=== PATIENT | female | born 1940 | race Caucasian/White ===

== ENCOUNTER → 2016-06-18 | Outpatient (CLI) | payer MEDICARE, BC ==
[~2016-06-18] MED LIST: /DULO30CA; /FENT50PA; AMBI5TAB; AMIT50TA2; CALC600T10; CALC600T10 PO; CARB10TAXR; CIPR500T89 PO; COLA100C2 PO; CORE12.5 PO; COUM2.5T11 PO; DRIS1CAP PO; FISH1000 PO; FISHCAP; FLAG500T PO; LIPI20TA PO; LISI10TA4 PO; LISI20TA5; LYRI75CA PO; MAG-TAB PO; MAGN250T; MAGN400C PO; METAM; METAMUCIL; METF500T PO; PERC5TAB6 PO; PIOG30TA4 PO; PREG50CA; ROSEHIPS; THERGRAN PO; TOPR100T PO; TYLE325T5 PO; VIT C; VITA50003 PO; ZEST20TA4 PO; ZOLO50TA PO; calcium with D OR; fluticasone spray
[2016-06-18 13:21] LABS: ALBUMIN 3.8 GM/DL (3.2-5.2); ALBUMIN/GLOBULIN RATIO 1.23 (1.00-1.93); ALKALINE PHOSPHATASE 115 U/L (45-117); ALT/SGPT 35 U/L (12-78); ANION GAP 6 MEQ/L (8-16); AST/SGOT 20 U/L (15-37); BILIRUBIN,TOTAL 0.4 MG/DL (0.2-1.0); BLOOD UREA NITROGEN 26 MG/DL (7-18); CALCIUM LEVEL 9.8 MG/DL (8.8-10.2); CARBON DIOXIDE LEVEL 28 MEQ/L (21-32); CHLORIDE LEVEL 106 MEQ/L (98-107); CHOLESTEROL LEVEL 142 MG/DL (<200); CREATININE FOR GFR 0.79 MG/DL (0.55-1.02); GLOMERULAR FILTRATION RATE > 60.0 (>39); GLUCOSE, FASTING 149 MG/DL (83-110); POTASSIUM SERUM 4.7 MEQ/L (3.5-5.1); SODIUM LEVEL 140 MEQ/L (136-145); TOTAL PROTEIN 6.9 GM/DL (6.4-8.2); TRIGLYCERIDES LEVEL 130 MG/DL (<150)
== END ==
LOC: M WUC 10:21
PROVIDERS: ATTEND Internal Medicine
DX: E78.00 Pure hypercholesterolemia, unspecified (principal); I10 Essential (primary) hypertension; E11.9 Type 2 diabetes mellitus without complications

== ENCOUNTER → 2016-09-13 | Outpatient (REF) | payer MEDICARE, BC ==
[2016-09-13 13:37] LABS: BASO % 0.4 % (0.0-1.0); EOS # 0.1 K/mm3 (0.0-0.50); EOS % 1.1 % (0.0-3.0); LARGE UNSTAINED CELL # 0.1 K/mm3 (0.0-0.4); LARGE UNSTAINED CELL % 1.8 % (0.0-4.0); LYMPH # 1.8 K/mm3 (1.5-4.5); LYMPH % 30.7 % (24.0-44.0); MEAN CORPUSCULAR HEMOGLOBIN 30.8 pg (27.0-33.0); MEAN CORPUSCULAR HGB CONC 31.6 g/dl (32.0-36.5); MEAN CORPUSCULAR VOLUME 97.5 fl (80.0-96.0); MONO # 0.3 K/mm3 (0.0-0.8); MONO % 5.7 % (0.0-5.0); NEUTROPHILS # 3.5 K/mm3 (1.8-7.7); NEUTROPHILS % 60.3 % (36.0-66.0); PLATELET COUNT, AUTOMATED 136 k/mm3 (150-450); RED CELL DISTRIBUTION WIDTH 13.5 % (11.5-14.5); WHITE BLOOD COUNT 5.8 K/mm3 (4.0-10.0)
[2016-09-13 14:36] LABS: ERYTHROCYTE SEDIMENTATION RATE 14 mm/hr (0-30)
== END ==
LOC: M LABDRAW1 11:19
PROVIDERS: ATTEND Orthopaedic Surgery
DX: Z47.1 Aftercare following joint replacement surgery (principal)

== ENCOUNTER → 2016-09-24 | Outpatient (CLI) | payer MEDICARE, BC ==
--- NOTE | 2016-09-24 13:52 | REP ---
Three-phase bone scan of the knees: History: Aftercare following joint replacement surgery. Possible infection. No comparison radiographs. Technique: 21.8 mCi technetium 99m MDP is injected and standard three-phase imaging was acquired. Findings: Anterior and posterior flow images are normal. Blood pool images demonstrate photopenia related to the prosthetic components in the right knee replacement. There is some evidence of venous varicosities particularly in the left knee level medially. Delayed scan images demonstrate expected bone prosthetic interface uptake associated with each of the three components of the right knee arthroplasty. No focal area of increased uptake to suggest infection. Impression: Expected bone prosthetic component interface uptake about the right knee arthroplasty. No scintigraphic evidence to suggest infection. Signed by Cricket Mosquera MD 09/24/2016 02:34 P
== END ==
LOC: M RAD 09:58
PROVIDERS: ATTEND Orthopaedic Surgery
DX: Z47.1 Aftercare following joint replacement surgery (principal); Z96.651 Presence of right artificial knee joint
CPT/HCPCS: 78315; A9503

== ENCOUNTER → 2016-10-05 | Outpatient (CLI) | payer MEDICARE, BC ==
--- NOTE | 2016-10-05 16:01 | REP ---
MRI LUMBAR SPINE WITHOUT CONTRAST: HISTORY: Back pain. Decreased signal intensity on T2-weighted images is present in the L2-3 through L5-S1 intervertebral discs. The L3-4 through L5-S1 intervertebral discs are decreased in height. These findings are consistent with disc degeneration. There is no disc bulge or herniation at the L1-2 level. The L1 nerves exit the neural foramina without compression. A diffuse disc bulge is present at the L2-3 level. There is hypertrophy of the ligamenta flava and posterior articulating facets. These findings produce minimal central canal stenosis. The L2 nerves exit the neural foramina without compression. A diffuse disc bulge is present at the L3-4 level. There is hypertrophy of the ligamenta flava and posterior articulating facets. These findings produce minimal central canal stenosis. The L3 nerves exit the neural foramina without compression. A diffuse disc bulge is present at the L4-5 level. There is hypertrophy of the ligamenta flava and posterior articulating facets. These findings produce minimal central canal stenosis. The L4 nerves exit the neural foramina without compression. A diffuse disc bulge is present at the L5-S1 level. This abuts the thecal sac and S1 nerves as they exit the thecal sac. There is hypertrophy of the posterior articulating facets. The L5 nerves exit the neural foramina without compression. The conus medullaris is normal in appearance terminating at the level of the L1-2 intervertebral disc. Normal signal intensity is present in the lumbar vertebral bodies. IMPRESSION: 1. Minimal central canal stenosis at the L2-3 through L4-5 levels secondary to disc bulge, ligamentous and facet hypertrophy. 2. Diffuse disc bulge at the L5-S1 level. This abuts the thecal sac and S1 nerves as they exit the thecal sac. Signed by Tony Cabrera MD 10/05/2016 04:04 P
== END ==
LOC: M PLARAD 14:13
PROVIDERS: ATTEND Orthopaedic Surgery
DX: M54.5 Low back pain (principal)

== ENCOUNTER → 2016-11-12 | Outpatient (REF) | payer MEDICARE, BC ==
[~2016-11-12] MED LIST changes: -COUM2.5T11 PO; +COUM2.5T17 PO; +DULO1CAP3 PO; +GABA-279 PO; -METF500T PO; +METF500T13 PO; +PERC5TAB12 PO; -PERC5TAB6 PO; +SPIR25TA2 PO; +VITA10002 PO; +VITA1CAP40 PO; +VITA200015 PO; +VITA250L PO; -VITA50003 PO
[2016-11-12 20:14] LABS: BASO % 0.3 % (0.0-1.0); EOS % 0.9 % (0.0-3.0); LARGE UNSTAINED CELL # 0.1 K/mm3 (0.0-0.4); LARGE UNSTAINED CELL % 1.4 % (0.0-4.0); LYMPH # 1.8 K/mm3 (1.5-4.5); LYMPH % 30.9 % (24.0-44.0); MEAN CORPUSCULAR HEMOGLOBIN 31.6 pg (27.0-33.0); MEAN CORPUSCULAR HGB CONC 33.3 g/dl (32.0-36.5); MEAN CORPUSCULAR VOLUME 94.8 fl (80.0-96.0); MONO # 0.3 K/mm3 (0.0-0.8); NEUTROPHILS # 3.4 K/mm3 (1.8-7.7); NEUTROPHILS % 61.5 % (36.0-66.0); PLATELET COUNT, AUTOMATED 144 k/mm3 (150-450); RED CELL DISTRIBUTION WIDTH 13.1 % (11.5-14.5); WHITE BLOOD COUNT 5.6 K/mm3 (4.0-10.0)
[2016-11-12 20:26] LABS: ALBUMIN 4.2 GM/DL (3.2-5.2); ALBUMIN/GLOBULIN RATIO 1.45 (1.00-1.93); ALKALINE PHOSPHATASE 107 U/L (45-117); ALT/SGPT 30 U/L (12-78); ANION GAP 6 MEQ/L (8-16); AST/SGOT 17 U/L (15-37); BILIRUBIN,TOTAL 0.4 MG/DL (0.2-1.0); BLOOD UREA NITROGEN 26 MG/DL (7-18); CARBON DIOXIDE LEVEL 28 MEQ/L (21-32); CHLORIDE LEVEL 102 MEQ/L (98-107); CREATININE FOR GFR 0.83 MG/DL (0.55-1.02); GLOMERULAR FILTRATION RATE > 60.0 (>39); GLUCOSE, FASTING 111 MG/DL (83-110); MAGNESIUM LEVEL 2.3 MG/DL (1.8-2.4); POTASSIUM SERUM 4.3 MEQ/L (3.5-5.1); SODIUM LEVEL 136 MEQ/L (136-145); TOTAL PROTEIN 7.1 GM/DL (6.4-8.2); URIC ACID 4.8 MG/DL (2.6-6.0)
[2016-11-12 21:23] LABS: ERYTHROCYTE SEDIMENTATION RATE 12 mm/hr (0-30)
[2016-11-15 00:06] LABS: Lyme Disease IgG/IgM Antibodie <0.91 ISR (0.00-0.90); Lyme Disease IgM Ab Quantitati <0.80 index (0.00-0.79)
== END ==
LOC: M LABDRAW1 13:52
PROVIDERS: ATTEND Internal Medicine Rheumatology
DX: Z51.81 Encounter for therapeutic drug level monitoring (principal); Z79.899 Other long term (current) drug therapy; M35.9 Systemic involvement of connective tissue, unspecified; R25.2 Cramp and spasm; E55.9 Vitamin D deficiency, unspecified

== ENCOUNTER → 2016-12-04 | Outpatient (REF) | payer MEDICARE, BC ==
[2016-12-04 16:04] LABS: BASO % 0.3 % (0.0-1.0); BLOOD UREA NITROGEN 27 MG/DL (7-18); CREATININE FOR GFR 0.84 MG/DL (0.55-1.02); EOS # 0.1 K/mm3 (0.0-0.50); GLOMERULAR FILTRATION RATE > 60.0 (>39); LARGE UNSTAINED CELL # 0.1 K/mm3 (0.0-0.4); LARGE UNSTAINED CELL % 1.1 % (0.0-4.0); LYMPH # 2.1 K/mm3 (1.5-4.5); MEAN CORPUSCULAR HEMOGLOBIN 31.5 pg (27.0-33.0); MEAN CORPUSCULAR HGB CONC 32.9 g/dl (32.0-36.5); MEAN CORPUSCULAR VOLUME 95.9 fl (80.0-96.0); MONO # 0.3 K/mm3 (0.0-0.8); MONO % 4.9 % (0.0-5.0); NEUTROPHILS # 3.9 K/mm3 (1.8-7.7); NEUTROPHILS % 60.6 % (36.0-66.0); PLATELET COUNT, AUTOMATED 147 k/mm3 (150-450); RED CELL DISTRIBUTION WIDTH 13.1 % (11.5-14.5); WHITE BLOOD COUNT 6.4 K/mm3 (4.0-10.0)
== END ==
LOC: M LABDRAW1 15:42
PROVIDERS: ATTEND Internal Medicine Rheumatology
DX: D47.2 Monoclonal gammopathy (principal); D63.1 Anemia in chronic kidney disease; D69.6 Thrombocytopenia, unspecified; N18.3 Chronic kidney disease, stage 3 (moderate)

== ENCOUNTER → 2016-12-07 | Outpatient (REF) | payer MEDICARE, BC ==
[2016-12-07 14:39] LABS: FOLATE > 24.0 NG/ML; VITAMIN B12 LEVEL 448 PG/ML
[2016-12-07 14:51] LABS: TOTAL PROTEIN 7.2 GM/DL (6.4-8.2)
[2016-12-10 11:55] LABS: ALBUMIN 4.24 GM/DL (3.29-5.55); ALBUMIN % 58.9 % (55.8-66.1); GAMMA GLOBULIN % 14.1 % (11.1-18.8)
[2016-12-13 00:07] LABS: SJOGREN'S ANTI SS-A <0.2 AI (0.0-0.9); SJOGREN'S ANTI SS-B <0.2 AI (0.0-0.9)
== END ==
LOC: M LABDRAW1 13:41
PROVIDERS: ATTEND Psychiatry & Neurology Neurology
DX: R20.8 Other disturbances of skin sensation (principal); Z13.1 Encounter for screening for diabetes mellitus; Z13.29 Encounter for screening for other suspected endocrine disorder

== ENCOUNTER → 2016-12-17 | Outpatient (CLI) | payer MEDICARE, BC ==
[2016-12-17 13:43] LABS: MEAN CORPUSCULAR HEMOGLOBIN 31.5 pg (27.0-33.0); MEAN CORPUSCULAR HGB CONC 33.1 g/dl (32.0-36.5); MEAN CORPUSCULAR VOLUME 95.1 fl (80.0-96.0); WHITE BLOOD COUNT 5.8 K/mm3 (4.0-10.0)
[2016-12-17 13:59] LABS: ALBUMIN 3.8 GM/DL (3.2-5.2); ALBUMIN/GLOBULIN RATIO 1.27 (1.00-1.93); ALKALINE PHOSPHATASE 97 U/L (45-117); ALT/SGPT 28 U/L (12-78); ANION GAP 5 MEQ/L (8-16); AST/SGOT 18 U/L (15-37); BILIRUBIN,TOTAL 0.4 MG/DL (0.2-1.0); BLOOD UREA NITROGEN 27 MG/DL (7-18); CALCIUM LEVEL 9.9 MG/DL (8.8-10.2); CARBON DIOXIDE LEVEL 28 MEQ/L (21-32); CHLORIDE LEVEL 107 MEQ/L (98-107); GLOMERULAR FILTRATION RATE > 60.0 (>39); GLUCOSE, FASTING 138 MG/DL (83-110); SODIUM LEVEL 140 MEQ/L (136-145); TOTAL PROTEIN 6.8 GM/DL (6.4-8.2)
[2016-12-17 14:06] LABS: POTASSIUM SERUM 5.2 MEQ/L (3.5-5.1)
== END ==
LOC: M WUC 09:11
PROVIDERS: ATTEND Internal Medicine
DX: Z86.010 Personal history of colon polyps (principal); I10 Essential (primary) hypertension; E11.9 Type 2 diabetes mellitus without complications; E55.9 Vitamin D deficiency, unspecified

== ENCOUNTER → 2016-12-21 | Outpatient (CLI) | payer MEDICARE, BC ==
[2016-12-21 17:06] LABS: ANION GAP 7 MEQ/L (8-16); BLOOD UREA NITROGEN 33 MG/DL (7-18); CALCIUM LEVEL 10.6 MG/DL (8.8-10.2); CARBON DIOXIDE LEVEL 29 MEQ/L (21-32); CHLORIDE LEVEL 104 MEQ/L (98-107); CREATININE FOR GFR 0.94 MG/DL (0.55-1.02); GLOMERULAR FILTRATION RATE > 60.0 (>39); GLUCOSE, FASTING 153 MG/DL (83-110); POTASSIUM SERUM 4.8 MEQ/L (3.5-5.1); SODIUM LEVEL 140 MEQ/L (136-145)
== END ==
LOC: M WUC 14:10
PROVIDERS: ATTEND Nurse Practitioner Family
DX: I11.9 Hypertensive heart disease without heart failure (principal)

== ENCOUNTER → 2017-01-03 | Outpatient (CLI) | payer MEDICARE, BC ==
[2017-01-03 12:58] LABS: MEAN CORPUSCULAR HEMOGLOBIN 31.8 pg (27.0-33.0); MEAN CORPUSCULAR HGB CONC 34.2 g/dl (32.0-36.5); MEAN CORPUSCULAR VOLUME 92.8 fl (80.0-96.0); RED CELL DISTRIBUTION WIDTH 13.3 % (11.5-14.5); WHITE BLOOD COUNT 6.6 K/mm3 (4.0-10.0)
== END ==
LOC: M WUC 11:51
PROVIDERS: ATTEND Nurse Practitioner Family
DX: I11.9 Hypertensive heart disease without heart failure (principal)

== ENCOUNTER 2017-03-14 06:57 | Day surgery (SDC) | payer MEDICARE, BC ==
[~2017-03-14] VITALS: Ht 162.6 cm; Wt 73.9 kg
[2017-03-14] MEDS ORDERED: PROPARACAINE 0.5% OPHTH SOL 15ML OS ONE (07:00)
[2017-03-14] MEDS ORDERED: TROPICAMIDE 1% OPHTH SOLN 2ML XX ONE (07:00)
[2017-03-14] MEDS ORDERED: OFLOXACIN 0.3 % (OCUFLOX) OPTH SOL 5ML OS ONE (07:00)
[2017-03-14] MEDS ORDERED: PHENYLEPHRINE 2.5% OPHTH SOL 2ML OS ONE (07:00)
[2017-03-14] MEDS ORDERED: LR 1,000 ML IV ONE (07:15)
[2017-03-14] MEDS ORDERED: ACETYLCHOLINE OPHTH SOLN 1% 2ML (MIOCHOL-E) As Ordered ONE (08:12)
[2017-03-14] MEDS ORDERED: POVIDONE-IODINE 5% OPHTH PREP SOL 30ML As Ordered ONE (08:12)
[2017-03-14] MEDS ORDERED: DUOVISC (0.50ML VISCOAT/0.55ML PROVISC) OPHTH KIT As Ordered ONE (08:13)
[2017-03-14] MEDS ORDERED: CEFUROXIME 1MG/0.1ML INTRACAMERAL INJ As Ordered ONE (08:13)
[2017-03-14] MEDS ORDERED: BALANCED SALT IRRIGATION SOLUTION 500ML BAG (FOR OR EYE MACHINE) As Ordered ONE (08:13)
[2017-03-14] MEDS ORDERED: LIDOCAINE 0.75%/EPINEPHRINE 0.025% IN BSS 1ML SYR INTRACAMERAL (OR ONLY) As Ordered ONE (08:13)
[2017-03-14] MEDS ORDERED: MIDAZOLAM INJ 2 MG/2 ML VIAL (J2250) As Ordered ONE (08:20)
[2017-03-14] MEDS ORDERED: fentaNYL 100 MCG/2 ML INJECTION (J3010) As Ordered ONE (08:20)
[2017-03-14] MEDS ORDERED: LIDOCAINE 2% INJ 100 MG/5 ML SDV (FOR ANES.) As Ordered ONE (08:38)
[2017-03-14 09:40] VITALS: BP 142/65
--- NOTE | 2017-03-16 10:52 | RO ---
DATE OF PROCEDURE: 03/14/2017 PREOPERATIVE DIAGNOSIS: Visually significant nuclear sclerotic cataract left eye. POSTOPERATIVE DIAGNOSIS: Visually significant nuclear sclerotic cataract left eye. PROCEDURE: Cataract extraction with use of phacoemulsification and placement of intraocular lens, AU00T0, 21.5, left eye. SURGEON: Vance Mccartney DO [employer] ACCOUNT EXECUTIVE: ANESTHESIA: Local with monitored anesthesia care (MAC). COMPLICATIONS: None. POSTOPERATIVE CONDITION: Stable. INDICATION FOR SURGERY: Blurred vision left eye affecting patient's activities of daily living. DESCRIPTION OF PROCEDURE: The patient was seen in the preoperative area and properly identified. The correct operative eye was identified and marked. Attention was turned to that eye. The patient received topical antibiotics in the preoperative area. The patient then received topical dilating drops consisting of tropicamide and phenylephrine. The patient was then transferred to the operating room. The correct side was re-identified. The patient received topical anesthetics and antibiotics on the surface of the eye. The eye was prepped and draped in a sterile fashion. The upper and lower eyelids were isolated with Tegaderm tape, and the lids were held open with an adjustable speculum. Using a sideport blade, a paracentesis incision was made. Intraocular preservative-free lidocaine was then injected into the anterior chamber. Viscoelastic was then injected into the anterior chamber through the paracentesis. Using a 2.4 mm sharp-tipped keratome, the anterior chamber was entered via a temporal clear corneal incision. A continuous curvilinear capsulorrhexis was created with the aid of a 26-gauge cystotome and Utrata forceps. Hydrodissection was performed with balanced salt solution (BSS) on a blunt cannula until the nucleus was freely mobile. The crystalline lens was phacoemulsified and aspirated. Additional cohesive viscoelastic was placed into the capsular bag to deepen it. A AU00T0, 21.5 lens was placed into the capsular bag and confirmed by visualizing the continuous curvilinear capsulorrhexis. Additional irrigation and aspiration was used to remove cortical material and remaining viscoelastic. The clear corneal incision was hydrated with BSS on a blunt cannula. The lens was well positioned. The incisions were then tested for leaks and found to be negative. The eye was then palpated for appropriate pressure and adjusted accordingly with BSS. The eyelid speculum was carefully removed. A shield was placed. The patient tolerated the procedure well and was discharged to the recovery unit in a stable condition. MTDD
== END 2017-03-14 09:57 | disposition home or self-care (01) ==
LOC: M SDC 06:57
PROVIDERS: ATTEND Ophthalmology
DX: H25.12 Age-related nuclear cataract, left eye (principal); I10 Essential (primary) hypertension; I34.8 Other nonrheumatic mitral valve disorders; K57.32 Diverticulitis of large intestine without perforation or abscess without bleeding; F41.9 Anxiety disorder, unspecified; F32.9 Major depressive disorder, single episode, unspecified; Z91.040 Latex allergy status; Z88.8 Allergy status to other drugs, medicaments and biological substances; Z79.02 Long term (current) use of antithrombotics/antiplatelets; Z79.899 Other long term (current) drug therapy
CPT/HCPCS: 66984; J2250; J3010; V2632

== ENCOUNTER 2017-04-04 07:16 | Day surgery (SDC) | payer MEDICARE, BC ==
[~2017-04-04] VITALS: Ht 152.4 cm; Wt 55.8 kg
[~2017-04-04 07:16] MED LIST changes: +OFLOXACIN 0.3 % (OCUFLOX) OPTH SOL 5ML OD ONE; +PHENYLEPHRINE 2.5% OPHTH SOL 2ML OD ONE; +PROPARACAINE 0.5% OPHTH SOL 15ML OD ONE; +TROPICAMIDE 1% OPHTH SOLN 2ML XX ONE
[2017-04-04] MEDS ORDERED: ACETYLCHOLINE OPHTH SOLN 1% 2ML (MIOCHOL-E) As Ordered ONE (08:24)
[2017-04-04] MEDS ORDERED: POVIDONE-IODINE 5% OPHTH PREP SOL 30ML As Ordered ONE (08:24)
[2017-04-04] MEDS ORDERED: LIDOCAINE 0.75%/EPINEPHRINE 0.025% IN BSS 1ML SYR INTRACAMERAL (OR ONLY) As Ordered ONE (08:24)
[2017-04-04] MEDS ORDERED: DUOVISC (0.50ML VISCOAT/0.55ML PROVISC) OPHTH KIT As Ordered ONE (08:24)
[2017-04-04] MEDS ORDERED: BALANCED SALT IRRIGATION SOLUTION 500ML BAG (FOR OR EYE MACHINE) As Ordered ONE (08:24)
[2017-04-04] MEDS ORDERED: CEFUROXIME 1MG/0.1ML INTRACAMERAL INJ As Ordered ONE (08:24)
[2017-04-04] MEDS ORDERED: fentaNYL 100 MCG/2 ML INJECTION (J3010) As Ordered ONE (08:48)
[2017-04-04] MEDS ORDERED: MIDAZOLAM INJ 2 MG/2 ML VIAL (J2250) As Ordered ONE (08:48)
[2017-04-04 10:05] VITALS: BP 144/65
--- NOTE | 2017-04-05 13:12 | RO ---
DATE OF PROCEDURE: 04/04/2017 PREOPERATIVE DIAGNOSIS: Visually significant nuclear sclerotic cataract right eye. POSTOPERATIVE DIAGNOSIS: Visually significant nuclear sclerotic cataract right eye. PROCEDURE: Cataract extraction with use of phacoemulsification and placement of intraocular lens, AU00T0, 21.5, right eye. SURGEON: Vance Mccartney DO TOOTH INSPECTOR: ANESTHESIA: Local with monitored anesthesia care (MAC). COMPLICATIONS: None. POSTOPERATIVE CONDITION: Stable. INDICATION FOR SURGERY: Blurred vision right eye affecting patient's activities of daily living. DESCRIPTION OF PROCEDURE: The patient was seen in the preoperative area and properly identified. The correct operative eye was identified and marked. Attention was turned to that eye. The patient received topical antibiotics in the preoperative area. The patient then received topical dilating drops consisting of tropicamide and phenylephrine. The patient was then transferred to the operating room. The correct side was re-identified. The patient received topical anesthetics and antibiotics on the surface of the eye. The eye was prepped and draped in a sterile fashion. The upper and lower eyelids were isolated with Tegaderm tape, and the lids were held open with an adjustable speculum. Using a sideport blade, a paracentesis incision was made. Intraocular preservative-free lidocaine was then injected into the anterior chamber. Viscoelastic was then injected into the anterior chamber through the paracentesis. Using a 2.65 mm sharp-tipped keratome, the anterior chamber was entered via a temporal clear corneal incision. A continuous curvilinear capsulorrhexis was created with the aid of a 26-gauge cystotome and Utrata forceps. Hydrodissection was performed with balanced salt solution (BSS) on a blunt cannula until the nucleus was freely mobile. The crystalline lens was phacoemulsified and aspirated. Additional cohesive viscoelastic was placed into the capsular bag to deepen it. An AU00T0 lens was placed into the capsular bag and confirmed by visualizing the continuous curvilinear capsulorrhexis. Additional irrigation and aspiration was used to remove cortical material and remaining viscoelastic. The clear corneal incision was hydrated with BSS on a blunt cannula. The lens was well positioned. The incisions were then tested for leaks and found to be negative. The eye was then palpated for appropriate pressure and adjusted accordingly with BSS. The eyelid speculum was carefully removed. TobraDex ointment was placed in the eye. An eye patch and shield were then secured over the eye. The patient tolerated the procedure well and was discharged to the recovery unit in a stable condition.
== END 2017-04-04 10:19 | disposition home or self-care (01) ==
LOC: M SDC 07:16
PROVIDERS: ATTEND Ophthalmology
DX: H25.11 Age-related nuclear cataract, right eye (principal); I11.9 Hypertensive heart disease without heart failure; I34.9 Nonrheumatic mitral valve disorder, unspecified; F41.9 Anxiety disorder, unspecified; F32.9 Major depressive disorder, single episode, unspecified; M19.90 Unspecified osteoarthritis, unspecified site; K57.92 Diverticulitis of intestine, part unspecified, without perforation or abscess without bleeding; Z88.5 Allergy status to narcotic agent; Z88.8 Allergy status to other drugs, medicaments and biological substances; Z91.040 Latex allergy status; Z88.1 Allergy status to other antibiotic agents; Z91.048 Other nonmedicinal substance allergy status; Z79.899 Other long term (current) drug therapy; Z79.84 Long term (current) use of oral hypoglycemic drugs
CPT/HCPCS: 66984; J2250; J3010; V2632

== ENCOUNTER → 2017-06-04 | Outpatient (REF) | payer MEDICARE, BC ==
[2017-06-04 18:17] LABS: ALBUMIN 4.6 GM/DL (3.2-5.2); ALBUMIN/GLOBULIN RATIO 1.39 (1.00-1.93); ALKALINE PHOSPHATASE 111 U/L (45-117); ALT/SGPT 21 U/L (12-78); ANION GAP 7 MEQ/L (8-16); AST/SGOT 17 U/L (7-37); BILIRUBIN,TOTAL 0.4 MG/DL (0.2-1.0); BLOOD UREA NITROGEN 30 MG/DL (7-18); CALCIUM LEVEL 10.5 MG/DL (8.8-10.2); CARBON DIOXIDE LEVEL 30 MEQ/L (21-32); CHLORIDE LEVEL 102 MEQ/L (98-107); CHOLESTEROL LEVEL 134 MG/DL (<200); CREATININE FOR GFR 0.89 MG/DL (0.55-1.30); GLOMERULAR FILTRATION RATE > 60.0 (>39); GLUCOSE, FASTING 136 MG/DL (70-100); HDL CHOLESTEROL 57 MG/DL (>40); LDL CHOLESTEROL 57.8 MG/DL (<100); NON-HDL-C 77 MG/DL; POTASSIUM SERUM 4.4 MEQ/L (3.5-5.1); SODIUM LEVEL 139 MEQ/L (136-145); TOTAL PROTEIN 7.9 GM/DL (6.4-8.2); TRIGLYCERIDES LEVEL 96 MG/DL (<150)
[2017-06-04 19:47] LABS: CREATININE, URINE 51.5 MG/DL; MALB URINE SIEMENS 15.6 MG/L; MAU/CREAT RATIO 30.2 MCG/MG (0.0-30.0)
[2017-06-04 20:14] LABS: ESTIMATED AVERAGE GLUCOSE 143 MG/DL (60-110); HEMOGLOBIN A1c 6.6 %
== END ==
LOC: M SFHCPLAZ 15:30
DX: E11.9 Type 2 diabetes mellitus without complications (principal); E78.00 Pure hypercholesterolemia, unspecified
CPT/HCPCS: 80053

== ENCOUNTER → 2017-07-25 | Outpatient (CLI) | payer BC | LOC: M RAD 13:34 | DX: I73.9 Peripheral vascular disease, unspecified (principal); G93.9 Disorder of brain, unspecified ==

== ENCOUNTER → 2017-11-04 | Outpatient (CLI) | payer BC, MEDICARE ==
[2017-11-04 12:10] LABS: HEMATOCRIT 36.7 % (36.0-47.0); HEMOGLOBIN 11.9 g/dl (12.0-15.5); MEAN CORPUSCULAR HEMOGLOBIN 30.7 pg (27.0-33.0); MEAN CORPUSCULAR HGB CONC 32.4 g/dl (32.0-36.5); MEAN CORPUSCULAR VOLUME 94.6 fl (80.0-96.0); PLATELET COUNT, AUTOMATED 172 10^3/uL (150-450); RED BLOOD COUNT 3.88 10^6/uL (4.00-5.40); RED CELL DISTRIBUTION WIDTH 13.1 % (11.5-14.5); WHITE BLOOD COUNT 6.5 10^3/uL (4.0-10.0)
[2017-11-04 12:28] LABS: TOTAL 25(OH) VITAMIN D 34.8 NG/ML (30.0-100.0)
[2017-11-04 12:31] LABS: ALBUMIN 3.9 GM/DL (3.2-5.2); ALBUMIN/GLOBULIN RATIO 1.18 (1.00-1.93); ALKALINE PHOSPHATASE 97 U/L (45-117); ALT/SGPT 23 U/L (12-78); ANION GAP 7 MEQ/L (8-16); AST/SGOT 18 U/L (7-37); BILIRUBIN,TOTAL 0.4 MG/DL (0.2-1.0); BLOOD UREA NITROGEN 25 MG/DL (7-18); CALCIUM LEVEL 10.2 MG/DL (8.8-10.2); CARBON DIOXIDE LEVEL 27 MEQ/L (21-32); CHLORIDE LEVEL 107 MEQ/L (98-107); CREATININE FOR GFR 0.94 MG/DL (0.55-1.30); GLOMERULAR FILTRATION RATE > 60.0 (>39); GLUCOSE, FASTING 154 MG/DL (70-100); POTASSIUM SERUM 5.1 MEQ/L (3.5-5.1); SODIUM LEVEL 141 MEQ/L (136-145); TOTAL PROTEIN 7.2 GM/DL (6.4-8.2)
[2017-11-04 12:36] LABS: ESTIMATED AVERAGE GLUCOSE 157 MG/DL (60-110); HEMOGLOBIN A1c 7.1 %
[2017-11-04 13:07] LABS: MAU/CREAT RATIO 96.8 MCG/MG (0.0-30.0)
== END ==
LOC: M WUC 09:07
DX: G62.9 Polyneuropathy, unspecified (principal); I10 Essential (primary) hypertension; E11.9 Type 2 diabetes mellitus without complications; Z86.010 Personal history of colon polyps; E55.9 Vitamin D deficiency, unspecified
CPT/HCPCS: 83735

== ENCOUNTER → 2017-11-19 | Outpatient (CLI) | payer MEDICARE, BC | LOC: M WHC 11:37 | DX: Z12.31 Encounter for screening mammogram for malignant neoplasm of breast (principal) | CPT/HCPCS: 77067 ==

== ENCOUNTER → 2018-05-14 | Outpatient (CLI) | payer MEDICARE, BC ==
[~2018-05-14] MED LIST changes: +GABA-1171 PO; -GABA-279 PO; -OFLOXACIN 0.3 % (OCUFLOX) OPTH SOL 5ML OD ONE; -PHENYLEPHRINE 2.5% OPHTH SOL 2ML OD ONE; +PIOG1TAB37 PO; -PIOG30TA4 PO; -PROPARACAINE 0.5% OPHTH SOL 15ML OD ONE; +SPIR-10 PO; -SPIR25TA2 PO; -TROPICAMIDE 1% OPHTH SOLN 2ML XX ONE; -VITA1CAP40 PO; +VITA50005 PO
[2018-05-14 12:47] LABS: APPEARANCE, URINE HAZY (CLEAR); BACTERIA, URINE AUTO 3+ (NEGATIVE); BILIRUBIN, URINE AUTO NEGATIVE (NEGATIVE); BLOOD, URINE BLOOD NEGATIVE (NEGATIVE); COLOR, URINE YELLOW (YELLOW); GLUCOSE, URINE (UA) AUTO NEGATIVE (NEGATIVE); KETONE, URINE AUTO NEGATIVE (NEGATIVE); LEUKOCYTE ESTERASE, URINE AUTO 3+ (NEGATIVE); MUCUS, URINE SMALL (NEGATIVE); NITRITE, URINE AUTO NEGATIVE (NEGATIVE); PROTEIN, URINE AUTO NEGATIVE (NEGATIVE); RBC, URINE AUTO 5 /HPF (0-3); SPECIFIC GRAVITY URINE AUTO 1.019 (1.002-1.035); SQUAMOUS EPITHELIAL CELL UR AU 1 /HPF (0-6); UROBILINOGEN, URINE AUTO 0.2 mg/dL (0.0-2.0); WBC, URINE AUTO 73 /HPF (0-3)
[2018-05-14 13:03] LABS: ALBUMIN 3.6 GM/DL (3.2-5.2); ALT/SGPT 22 U/L (12-78); BILIRUBIN,TOTAL 0.3 MG/DL (0.2-1.0); BLOOD UREA NITROGEN 24 MG/DL (7-18); CALCIUM LEVEL 9.9 MG/DL (8.8-10.2); CARBON DIOXIDE LEVEL 26 MEQ/L (21-32); CHLORIDE LEVEL 106 MEQ/L (98-107); CREATININE FOR GFR 0.78 MG/DL (0.55-1.30); GLOMERULAR FILTRATION RATE > 60.0 (>39); GLUCOSE, FASTING 131 MG/DL (70-100); POTASSIUM SERUM 4.9 MEQ/L (3.5-5.1); SODIUM LEVEL 138 MEQ/L (136-145); TOTAL PROTEIN 6.8 GM/DL (6.4-8.2)
[2018-05-14 13:22] LABS: MAU/CREAT RATIO 27.5 MCG/MG (0.0-30.0)
[2018-05-14 14:32] LABS: HEMOGLOBIN A1c 7.5 %
== END ==
LOC: M WUC 10:06
PROVIDERS: ATTEND Internal Medicine
DX: I10 Essential (primary) hypertension (principal); E11.9 Type 2 diabetes mellitus without complications

== ENCOUNTER → 2018-06-18 | Outpatient (REF) | payer MEDICARE, BC ==
[2018-06-18 13:29] LABS: INR 1.06; PROTHROMBIN TIME 13.9 SECONDS (12.1-14.4)
[2018-06-18 13:30] LABS: PARTIAL THROMBOPLASTIN TIME 28.6 SECONDS (25.4-37.6)
== END ==
LOC: M LABDRAW1 11:50
PROVIDERS: ATTEND Physical Medicine & Rehabilitation
DX: Z01.812 Encounter for preprocedural laboratory examination (principal)

== ENCOUNTER → 2018-08-06 | Outpatient (REF) | payer MEDICARE, BC ==
[~2018-08-06] MED LIST changes: -/DULO30CA; -/FENT50PA; -CARB10TAXR; +CYMB1CAP5; +FENT1DIS15; +METO-745 PO; +TEGR100T3; -TOPR100T PO
== END ==
LOC: M SFHCPLAZ 10:22
PROVIDERS: ATTEND Dermatology
DX: C44.529 Squamous cell carcinoma of skin of other part of trunk (principal); C44.612 Basal cell carcinoma of skin of right upper limb, including shoulder; L57.0 Actinic keratosis; D23.39 Other benign neoplasm of skin of other parts of face

== ENCOUNTER → 2018-09-23 | Outpatient (REF) | payer MEDICARE, BC ==
[~2018-09-23] MED LIST changes: +CYAN100049 PO; -DULO1CAP3 PO; +DULO1CAP6 PO; -VITA10002 PO
== END ==
LOC: M SFHCPLAZ 09:58
PROVIDERS: ATTEND Dermatology
DX: L57.0 Actinic keratosis (principal)

== ENCOUNTER → 2018-11-26 | Outpatient (CLI) | payer MEDICARE, BC ==
[2018-11-26 12:33] LABS: HEMATOCRIT 37.4 % (36.0-47.0); HEMOGLOBIN 11.9 g/dl (12.0-15.5); MEAN CORPUSCULAR HEMOGLOBIN 31.3 pg (27.0-33.0); MEAN CORPUSCULAR HGB CONC 31.8 g/dl (32.0-36.5); MEAN CORPUSCULAR VOLUME 98.4 fl (80.0-96.0); PLATELET COUNT, AUTOMATED 160 10^3/uL (150-450); WHITE BLOOD COUNT 6.7 10^3/uL (4.0-10.0)
[2018-11-26 12:38] LABS: APPEARANCE, URINE MANUAL HAZY (CLEAR); BILIRUBIN, URINE MANUAL NEGATIVE (NEGATIVE); BLOOD URINE MANUAL POSITIVE (NEGATIVE); COLOR, URINE MANUAL LT YELLOW (YELLOW); GLUCOSE, URINE (UA) MANUAL NEGATIVE (NEGATIVE); KETONE, URINE MANUAL NEGATIVE (NEGATIVE); LEUKOCYTE ESTERASE, URINE MAN POSITIVE (NEGATIVE); NITRITE, URINE MANUAL NEGATIVE (NEGATIVE); PROTEIN, URINE MANUAL 2+ mg/dL (NEGATIVE); SPECIFIC GRAVITY,URINE MANUAL 1.015 (1.002-1.035); UROBILINOGEN, URINE MANUAL NORMAL (NORMAL)
[2018-11-26 12:47] LABS: WBC, URINE 30-40 /hpf (0-3)
[2018-11-26 12:48] LABS: BACTERIA, URINE MOD AMOUNT; HYALINE CAST, URINE NONE SEEN /lpf (0-1)
[2018-11-26 12:58] LABS: ALBUMIN 3.8 GM/DL (3.2-5.2); ALT/SGPT 23 U/L (12-78); BILIRUBIN,TOTAL 0.3 MG/DL (0.2-1.0); BLOOD UREA NITROGEN 30 MG/DL (7-18); CALCIUM LEVEL 9.8 MG/DL (8.8-10.2); CARBON DIOXIDE LEVEL 29 MEQ/L (21-32); CHLORIDE LEVEL 107 MEQ/L (98-107); CHOLESTEROL LEVEL 125 MG/DL (<200); CHOLESTEROL RISK RATIO 2.551 (<5); CREATININE FOR GFR 0.87 MG/DL (0.55-1.30); GLOMERULAR FILTRATION RATE > 60.0 (>39); GLUCOSE, FASTING 145 MG/DL (70-100); HDL CHOLESTEROL 49 MG/DL (>40); LDL CHOLESTEROL 54 MG/DL (<100); MAGNESIUM LEVEL 2.1 MG/DL (1.8-2.4); NON-HDL-C 76 MG/DL; POTASSIUM SERUM 5.3 MEQ/L (3.5-5.1); SODIUM LEVEL 139 MEQ/L (136-145); TRIGLYCERIDES LEVEL 109 MG/DL (<150)
[2018-11-26 12:59] LABS: HEMOGLOBIN A1c 7.2 %
[2018-11-26 13:05] LABS: MAU/CREAT RATIO 211.3 MCG/MG (0.0-30.0)
== END ==
LOC: M WUC 08:29
PROVIDERS: ATTEND Internal Medicine
DX: G62.9 Polyneuropathy, unspecified (principal); I10 Essential (primary) hypertension; E78.00 Pure hypercholesterolemia, unspecified; E11.9 Type 2 diabetes mellitus without complications

== ENCOUNTER 2019-01-17 01:47 | Emergency (ER) | payer MEDICARE ==
[~2019-01-17] VITALS: Ht 162.6 cm; Wt 70.5 kg
[2019-01-17 02:06] LABS: BASO % 0.5 % (0.0-1.0); EOS # 0.1 10^3/uL (0.0-0.5); EOS % 2.1 % (0.0-3.0); HEMATOCRIT 36.7 % (36.0-47.0); HEMOGLOBIN 11.5 g/dl (12.0-15.5); LYMPH # 2.4 10^3/uL (1.5-5.0); LYMPH % 37.9 % (24.0-44.0); MEAN CORPUSCULAR HEMOGLOBIN 30.3 pg (27.0-33.0); MEAN CORPUSCULAR HGB CONC 31.3 g/dl (32.0-36.5); MEAN CORPUSCULAR VOLUME 96.6 fl (80.0-96.0); MONO # 0.5 10^3/uL (0.0-0.8); MONO % 7.9 % (0.0-5.0); NEUTROPHILS # 3.3 10^3/uL (1.5-8.5); NEUTROPHILS % 51.3 % (36.0-66.0); PLATELET COUNT, AUTOMATED 154 10^3/uL (150-450); WHITE BLOOD COUNT 6.3 10^3/uL (4.0-10.0)
[2019-01-17] MEDS ORDERED: FURO40TA2 PO (02:23)
[2019-01-17] MEDS ORDERED: CEPH500C PO (02:23)
[2019-01-17 02:33] LABS: BLOOD UREA NITROGEN 26 MG/DL (7-18); CALCIUM LEVEL 10.4 MG/DL (8.8-10.2); CARBON DIOXIDE LEVEL 28 MEQ/L (21-32); CHLORIDE LEVEL 102 MEQ/L (98-107); CPK CREATINE PHOSPHOKINASE 175 U/L (26-192); CREATININE FOR GFR 0.97 MG/DL (0.55-1.30); GLOMERULAR FILTRATION RATE 58.8 (>32); GLUCOSE, FASTING 119 MG/DL (70-100); MB/CK RELATIVE INDEX 1.14 (< OR =4); POTASSIUM SERUM 4.3 MEQ/L (3.5-5.1); SODIUM LEVEL 134 MEQ/L (136-145); TROPONIN I < 0.02 NG/ML (< 0.10)
[2019-01-17] MEDS ORDERED: KETOROLAC 30 MG/ML VIAL (J1885) IV ONE (03:00)
[2019-01-17] MEDS ORDERED: METHOCARBAMOL 1,000 MG/10 ML VIAL (J2800) IV ONE (03:00)
--- NOTE | 2019-01-17 04:51 | REPVR ---
EXAM: CT Thoracic Spine Without Contrast EXAM DATE/TIME: 01/17/2019 2:53 AM CLINICAL HISTORY: 79 years old, female; Pain in thoracic spine; Without myelpathy or radiculopathy; Additional info: New onset tl junction pain TECHNIQUE: Imaging protocol: Computed tomography images of the thoracic spine without contrast. Radiation optimization: All CT scans at this facility use at least one of these dose optimization techniques: automated exposure control; mA and/or kV adjustment per patient size (includes targeted exams where dose is matched to clinical indication); or iterative reconstruction. COMPARISON: CT Spine,thoracic w/o contrast 01/17/2019 2:59 AM FINDINGS: Vertebrae: There is a slight leftward convex curvature in the region of the cervical thoracic junction. There are no subluxations. Vertebral body heights are normal. There is no evidence of acute fracture. No suspicious osseous lesions. Anterior endplate spurs are seen at multiple levels, largest from T7-T8 through T9-T10. There is fusion of the bilateral facet joints at T3-T4. There is mild facet joint sclerosis and hypertrophy at multiple levels in the upper thoracic spine, most prominent at T2-T3. Discs/Spinal canal/Neural foramina: There is calcification within the disc and a small posterior disc osteophyte complex at T11-T12, not resulting in significant stenosis of the spinal canal. No significant spinal canal stenosis is seen. Soft tissues: The paraspinous soft tissues appear unremarkable. Vasculature: The visualized aorta is normal in size. Lungs: Patchy ground glass opacity posteriorly in the visualized lungs is nonspecific and may be due to incomplete expansion. IMPRESSION: 1. No fractures identified. 2. Multilevel, relatively mild degenerative endplate changes and a small osteophyte complex at T11-T12. No significant stenosis of the thoracic spinal canal. 3. Mild multilevel facet degenerative changes in the upper thoracic spine. Electronically signed by: Christi Salazar On 01/17/2019 04:51:22 AM
--- NOTE | 2019-01-17 05:01 | REPVR ---
EXAM: CT Lumbar Spine Without Contrast EXAM DATE/TIME: 01/17/2019 3:16 AM CLINICAL HISTORY: 79 years old, female; Low back pain; Additional info: New onset tl junction pain TECHNIQUE: Imaging protocol: Computed tomography images of the lumbar spine without contrast. Radiation optimization: All CT scans at this facility use at least one of these dose optimization techniques: automated exposure control; mA and/or kV adjustment per patient size (includes targeted exams where dose is matched to clinical indication); or iterative reconstruction. COMPARISON: MRI-Spine, L.S. without con 10/05/2016 3:00 PM FINDINGS: Vertebrae: There is normal alignment of the visualized spine. Vertebral body heights are normal. There is no evidence of acute fracture. Discs/Spinal canal/Neural foramina: Ligamentum flavum hypertrophy and mild facet hypertrophy at L3-L4 result in mild central canal stenosis at this level. There is a minimal bulge at L4-5 disc. Ligamentum flavum hypertrophy and facet joint hypertrophy at L4-L5 result in mild central canal stenosis at this level. Disc space narrowing, endplate sclerosis, and small endplate spurs are seen at the L5-S1 level, grossly unchanged from the prior MRI. There is hypertrophy of the bilateral facet joints at L5-S1. There is no significant stenosis of the spinal canal. There is mild left L5-S1 neural foraminal narrowing, unchanged. Vasculature: Atherosclerotic calcifications are present in the visualized abdominal aorta and the iliac arteries. Soft tissues: The paraspinous soft tissues appear unremarkable. IMPRESSION: 1. Normal alignment. No fractures identified. 2. Degenerative disc disease most prominent at L5-S1, without significant change from the prior MRI. Mild stenosis of spinal canal at L3-L4 and L4-L5, mostly related to facet and ligamentum flavum hypertrophy. 3. Facet arthropathy in the lower lumbar spine, most prominent at L5-S1, without significant change. Electronically signed by: Christi Salazar On 01/17/2019 05:01:24 AM
[2019-01-17] MEDS ORDERED: ROBA750T4 PO (06:36)
[2019-01-17] MEDS ORDERED: NAPR-837 PO (06:36)
[2019-01-17 07:00] VITALS: BP 140/81
--- NOTE | 2019-01-17 09:18 | REP ---
TWO-VIEW CHEST: REASON: Chest pain. COMPARISON: No priors. The technique utilized in obtaining the radiograph has magnified the cardiac silhouette and accentuated the interstitial markings. FINDINGS: The superior mediastinal structures are midline. The cardiac silhouette is unremarkable in size, shape, and position. The diaphragmatic surfaces of the lungs are regular, and the costophrenic angles are clear. The pulmonary barone are clear. The imaged osseous structures are intact. IMPRESSION: There is no acute cardiopulmonary disease. Electronically Signed by Bg Green DO 01/17/2019 09:47 A
--- NOTE | 2019-01-18 05:39 | ECGEPIP ---
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
== END 2019-01-17 07:14 | disposition home or self-care (01) ==
LOC: M ED 01:47
DX: M54.9 Dorsalgia, unspecified (principal); M51.37 Other intervertebral disc degeneration, lumbosacral region; M51.34 Other intervertebral disc degeneration, thoracic region; Z88.5 Allergy status to narcotic agent; Z88.8 Allergy status to other drugs, medicaments and biological substances; Z88.1 Allergy status to other antibiotic agents; Z91.040 Latex allergy status; Z91.048 Other nonmedicinal substance allergy status; Z79.899 Other long term (current) drug therapy; Z79.84 Long term (current) use of oral hypoglycemic drugs
CPT/HCPCS: 71045; 72128; 72131; 80048; 82550; 82553; 84484; 85025; 93005; 93041; 94760; 96374; 96375; 99285; J1885; J2800

== ENCOUNTER → 2019-01-29 | Outpatient (REF) | payer MEDICARE ==
[~2019-01-29] MED LIST changes: +CEPH500C PO; +FURO40TA2 PO; +NAPR-837 PO; +ROBA750T4 PO
== END ==
LOC: M SFHCPLAZ 18:36
PROVIDERS: ATTEND Dermatology
DX: D17.21 Benign lipomatous neoplasm of skin and subcutaneous tissue of right arm (principal); D17.22 Benign lipomatous neoplasm of skin and subcutaneous tissue of left arm

== ENCOUNTER 2019-03-09 19:04 | Inpatient (IN) | payer MEDICARE ==
[~2019-03-09] VITALS: Ht 162.6 cm; Wt 77.3 kg
[2019-03-09] MEDS ORDERED: ONDANSETRON 4MG/2ML VIAL (J2405) IV ONE (19:45)
[2019-03-09] MEDS ORDERED: fentaNYL 100 MCG/2 ML INJECTION (J3010) IV ONE (19:45)
[2019-03-09] MEDS ORDERED: NS 1,000 ML IV ONE (19:45)
[2019-03-09 20:26] LABS: BASO % 0.1 % (0.0-1.0); HEMATOCRIT 36.6 % (36.0-47.0); HEMOGLOBIN 11.6 g/dl (12.0-15.5); LYMPH # 0.6 10^3/uL (1.5-5.0); LYMPH % 4.9 % (24.0-44.0); MEAN CORPUSCULAR HGB CONC 31.7 g/dl (32.0-36.5); MEAN CORPUSCULAR VOLUME 97.9 fl (80.0-96.0); MONO # 0.8 10^3/uL (0.0-0.8); NEUTROPHILS # 10.1 10^3/uL (1.5-8.5); NEUTROPHILS % 85.7 % (36.0-66.0); PLATELET COUNT, AUTOMATED 115 10^3/uL (150-450); RED BLOOD COUNT 3.74 10^6/uL (4.00-5.40); WHITE BLOOD COUNT 11.8 10^3/uL (4.0-10.0)
[2019-03-09] MEDS ORDERED: ISOVUE-370 76% 100ML VIAL (Q9967) As Ordered ONE (20:42)
[2019-03-09 20:56] LABS: ALBUMIN 3.2 GM/DL (3.2-5.2); ALT/SGPT 19 U/L (12-78); BILIRUBIN,DIRECT 0.2 MG/DL (0.0-0.2); BILIRUBIN,TOTAL 0.6 MG/DL (0.2-1.0); CK-MB VALUE MASS < 1.0 NG/ML (<3.6); CPK CREATINE PHOSPHOKINASE 40 U/L (26-192); LIPASE 38 U/L (73-393); TOTAL PROTEIN 6.6 GM/DL (6.4-8.2); TROPONIN I < 0.02 NG/ML (< 0.10)
--- NOTE | 2019-03-09 21:40 | REPVR ---
PROCEDURE INFORMATION: Exam: CT Abdomen And Pelvis With Contrast Exam date and time: 03/09/2019 8:50 PM Clinical history: 79 years old, female; Abdominal pain; Generalized; Additional info: Generalized abd pain TECHNIQUE: Imaging protocol: Computed tomography of the abdomen and pelvis with intravenous contrast. Radiation optimization: All CT scans at this facility use at least one of these dose optimization techniques: automated exposure control; mA and/or kV adjustment per patient size (includes targeted exams where dose is matched to clinical indication); or iterative reconstruction. Contrast material: ISOVUE 370; Contrast volume: 100 ml; Contrast route: IV; COMPARISON: CT ABD PELVIS WITH CONTRAST 06/28/2015 12:25 PM FINDINGS: Lungs: Mild left left lower lobe and minimal right base and lingular fibro-atelectatic change. Minimal 5 mm nodular density in the right middle lobe which is unchanged from the prior study. Pleural space: Minimal left pleural effusion. Liver: The liver attenuation is 78 Hounsfield units and the spleen is 134 Hounsfield units. Gallbladder and bile ducts: Normal. No calcified stones. No ductal dilation. Pancreas: Normal. No ductal dilation. Spleen: Splenic calcifications with 5 mm splenic cyst. Adrenals: Slight fullness of the adrenals bilaterally with some nodularity on the left which may reflect small nodules. Kidneys and ureters: There are bilateral renal cysts measuring up to 20 mm on the left. Moderately prominent left hydronephrosis with left perinephric and renal sinus edema which extends to a large left UPJ calculus measuring 7 x 5 x 9 mm. Stomach and bowel: Partial ascending colectomy with ileocolic anastomosis in the lower right abdomen. Mild stool and gas throughout much of the colon. There is colonic diverticulosis without evidence of diverticulitis. Appendix: The appendix is not seen. Intraperitoneal space: Mild free fluid in the pelvis with a Hounsfield measurement of 6. Vasculature: There is mild calcification of the abdominal aorta. Lymph nodes: Unremarkable. No enlarged lymph nodes. Bladder: Unremarkable as visualized. Reproductive: Status post hysterectomy. Bones/joints: Degenerative facet arthropathy of the lumbar spine with mild left neural foraminal stenosis L5-S1. Soft tissues: Unremarkable. IMPRESSION: 1. Interval migration of left renal calculus from the left upper pole to the left UPJ since 06/28/2015 and now measures 7 x 5 x 9 mm with secondary obstructive uropathy on the left upper tract. 2. Minimal left pleural effusion which is new since the prior study with bibasilar fibro-atelectatic change, greatest in the left lower lobe which is increased. 3. 5 mm right middle lobe nodule which is unchanged and stable since 06/28/2015. No followup needed. 4. Fatty infiltration of the liver. 5. Old granulomatous disease of the spleen. 6. Fullness of the adrenals bilaterally with slight nodularity which is similar to the prior study. 7. Status post partial ascending colectomy and hysterectomy. 8. Mild free fluid in the pelvis which is nonspecific and new since the prior study. 9. Colonic diverticulosis without diverticulitis. Electronically signed by: Narinder Donald On 03/09/2019 21:40:13 PM
[2019-03-09] MEDS ORDERED: PIPERACILLIN/TAZOBACTAM SOD 3.375 GM in D5W MINI-BAG PLUS 50 ML IV ONE (23:45)
[2019-03-09] MEDS ORDERED: TAMSULOSIN 0.4 MG CAP PO ONE (23:45)
[2019-03-10] VITALS (10 sets, daily range): BP systolic 105–139; BP diastolic 64–69
[2019-03-10] MEDS ORDERED: FLON1SPR (00:02)
[2019-03-10] MEDS ORDERED: LISI-538 PO (00:02)
[2019-03-10] MEDS ORDERED: OYST500T91 PO (00:02)
[2019-03-10] MEDS ORDERED: METH750T2 PO (00:02)
[2019-03-10] MEDS ORDERED: METF750T41 PO (00:02)
[2019-03-10] MEDS ORDERED: NAPR-885 PO (00:02)
[2019-03-10] MEDS ORDERED: ATOR40TA75 PO (00:02)
[2019-03-10] MEDS ORDERED: LASI40TA9 PO (00:02)
[2019-03-10] MEDS ORDERED: ACETAMINOPHEN 500 MG TAB PO ONE (00:30)
[2019-03-10] MEDS ORDERED: GLUCAGON FOR INJ 1 MG VIAL (J1610) SC PRN (00:30)
[2019-03-10] MEDS ORDERED: NS 1,000 ML IV SCH (00:30)
[2019-03-10] MEDS ORDERED: GLUCOSE 4 GM CHEW TABLET PO PRN (00:30)
[2019-03-10] MEDS ORDERED: DEXTROSE 50% 50 ML SYRINGE IV PRN (00:30)
[2019-03-10] MEDS ORDERED: oxyCODONE 5MG TAB PO PRN (00:30)
[2019-03-10] MEDS ORDERED: oxyCODONE 5MG TAB PO ONE (00:30)
[2019-03-10] MEDS ORDERED: NALOXONE INJ 0.4 MG/1 ML VIAL (J2310) IV PRN (00:30)
[2019-03-10] MEDS ORDERED: CALC1TAB74 PO (00:34)
[2019-03-10] MEDS ORDERED: FLUTICASONE PROP 0.05% NASAL SPRAY 16 GM (FLONASE) PRN (00:45)
[2019-03-10] MEDS: NS 1,000 ML IV SCH ×2 (03:30→19:00)
--- NOTE | 2019-03-10 06:26 | ECGEPIP ---
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
[2019-03-10 07:02] LABS: BASO % 0.2 % (0.0-1.0); HEMATOCRIT 33.8 % (36.0-47.0); HEMOGLOBIN 10.6 g/dl (12.0-15.5); LYMPH # 0.8 10^3/uL (1.5-5.0); LYMPH % 6.7 % (24.0-44.0); MEAN CORPUSCULAR HEMOGLOBIN 30.3 pg (27.0-33.0); MEAN CORPUSCULAR HGB CONC 31.4 g/dl (32.0-36.5); MEAN CORPUSCULAR VOLUME 96.6 fl (80.0-96.0); MONO # 0.9 10^3/uL (0.0-0.8); MONO % 7.8 % (0.0-5.0); NEUTROPHILS # 9.3 10^3/uL (1.5-8.5); NEUTROPHILS % 83.2 % (36.0-66.0); PLATELET COUNT, AUTOMATED 101 10^3/uL (150-450); WHITE BLOOD COUNT 11.2 10^3/uL (4.0-10.0)
[2019-03-10 07:25] LABS: CALCIUM LEVEL 10.1 MG/DL (8.8-10.2); CREATININE FOR GFR 1.11 MG/DL (0.55-1.30); GLOMERULAR FILTRATION RATE 50.3 (>32); POTASSIUM SERUM 3.9 MEQ/L (3.5-5.1)
--- NOTE | 2019-03-10 07:42 | HPE ---
DATE OF ADMISSION: 03/09/2019 PRIMARY CARE PHYSICIAN: Misael Cintron CHIEF COMPLAINT: Stomach pain. HISTORY OF PRESENTING ILLNESS: This is an 79-year-old female presenting to the emergency room with complaint of left sided flank pain since Saturday. The patient had her car serviced, had an oil change. She put gas in her car on Saturday. She went to [place] to do some shopping, it was very windy outside and she was okay until she got to [place] when she felt sick to her stomach. The patient complained of severe nausea and wanted to get back home. She wrote a check to the casino cage cashier and ask for her groceries to be brought into the car. She went back home behind [address] apartment building and called her daughter at work to come over and put the groceries away from the car. She went into the home and she was feeling unwell. All night long she continued to have 10/10 on the pain scale, sharp pain on the left side. When she tries to get up and walk it does radiate down to the leg on the left side. She put on an ice pack and cold pack to the side, did not take any acetaminophen or ibuprofen and feels better when she lays down on her left side, worse when she is on her back and when she tries to walk or get up. She did have occasional chills but no documented fever. She has had decrease in oral intake due to severe pain at home. She has noted a bit of dysuria, she has also noted a decrease in urine output, not much urine was coming out. She was not drinking all that much at home. No prior episodes in the past. Continues to have urinary urgency and pees a little at times. Since then she has also noted generalized weakness, increasing shortness of breath prompting her to come to the emergency room today. In the emergency room (ER) she was noted to be afebrile, temperature of 98.8, temperature max (T-max) of 99.8, white count 11.8. CT of the abdomen and pelvis confirmed kidney stone with left renal calculus in the left upper pole at the left ureteropelvic junction (UPJ) since October 26, 2005 which now measures 7 x 5 x 9 mm with obstructive uropathy on the left upper tract. She also has minimal left pleural effusion greatest in the left lower lobe which has also increased, her 5 mm right middle lobe nodule is unchanged and stable. Hospitalist was called to admit for obstructive uropathy secondary to kidney stone and subsequent left pyelonephritis. Urinalysis as turbid, 2+ protein, 3+ ketones, 3+ leukocyte esterase, too numerous to count white cells, 2+ bacteria. Urine culture is pending. Blood cultures are pending. PAST MEDICAL HISTORY: 1. Anxiety, depression. 2. Hypertension. 3. Mitral valve prolapse. 4. Adenomatous colonic polyp. 5. Allergic rhinitis. 6. Fatty liver. 7. Vitamin D deficiency. 8. Syncope with collapse and drop attacks. 9. Pseudoclaudication. 10. Sensory neuropathy. 11. Diabetes. 12. Hypercholesterolemia. 13. Dysthymia. 14. Cervical spinal stenosis with radiculopathy. 15. History of basal cell carcinoma times four. ALLERGIES: PLASTIC TAPE, TOBREX and ESTROGEN, HOMATROPINE, TAPE, MORPHINE and TOBRAMYCIN. PAST SURGICAL HISTORY: 1. Tubal ligation. 2. Bilateral cataract extraction 2016. 3 Transvaginal hysterectomy for uterine prolapse. 4. Total right knee 2015. 5. Removal of fibroid tumors in the breast. 6. Arthroscopy of the right knee with repair of torn meniscus 2014. 7. Prolapse bladder repair 1998. 8. Laparoscopic right hemicolectomy for a large benign cecal polyp. 9. Mohs surgery. 10. Basal cell carcinoma removed from the [facility] 2013. HOME MEDICATIONS: - Atorvastatin 40 mg daily - calcium with vitamin D one tablet twice a day - vitamin D 2000 units daily - B12 1000 mcg daily - duloxetine 60 daily - Flonase 2 sprays as needed - Lasix 40 daily - gabapentin 200 nightly - lisinopril 20 daily - magnesium oxide 400 daily - metformin 1500 mg every evening - Naprosyn 500 nightly - spironolactone 12.5 mg daily - pioglitazone 30 mg daily SOCIAL HISTORY: The patient denied any history of smoking, alcohol use, recreational drug use. 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 Currently , in 2017, has a daughter who is her health care proxy. She is currently a FULL CODE. Lives behind [employer], usually ambulatory, able to shop and perform all activities of daily living (ADLs) and still drives her vehicle. REVIEW OF SYSTEMS: Per history of present illness (HPI) 12-point system otherwise negative. PHYSICAL EXAMINATION: Vital signs: Temperature 99.8, pulse 90, respirations 20, blood pressure 117/59, 95% on room air. General: The patient is awake, alert and oriented to herself, able to provide the entire history. She has no respiratory distress. HEENT: No cyanosis, no icterus, no jaundice, no jugular venous distention, or thyromegaly. The patient has no facial asymmetry. Tongue is midline. Moist mucous membranes, no jugular venous distention (JVD). Pupils round and reactive. Extraocular muscles are intact. There is no stridor on exam. Lungs: Diminished with bibasilar crackles. Heart: S1, S2, sinus rhythm, no murmurs, rubs, gallops. Abdomen: Obese, soft, nontender, nondistended. Positive bowel sounds in four quadrants. No hepatosplenomegaly. Positive costovertebral angle (CVA) tenderness on the left. Extremities: No cyanosis, clubbing or pitting edema. EKG: Sinus rhythm, ventricular rate of 90 with premature ventricular contractions (PVCs). LABORATORY DATA: White count 11.8, hemoglobin 11.6, hematocrit 36, platelet count 115. Sodium 133, potassium 4.2, chloride 96, bicarbonate 27, BUN 24, creatinine 1.1, Ionized calcium 5.6, glucose 228, lactic acid 1.44, total bilirubin (T-bilirubin) 0.6, direct bilirubin 0.2, AST 8, ALT 19, alkaline phosphatase 85, total CK 40, MB fraction less than 1. Relative index 2.5, troponin less than 0.02, total protein 6.6, albumin 3.2, lipase 38. Urinalysis turbid appearance, high pH, specific gravity 1.042, protein 2+, 3+ glucose, 2+ blood, negative nitrites, 3+ leukocyte esterase, too numerous to count WBCs, 17 RBCs, 2+ bacteria. IMAGING STUDIES: CT of the abdomen and pelvis 03/09/2019 shows interval migration of left renal calculus from the left upper pole to the left UPJ since 06/28/2015, now measures 7 x 5 x 9 mm with secondary obstructive uropathy in the left upper tract, minimal left pleural effusion which is new since prior study with bibasilar fibrotic atelectasis greater in the left lower lobe which is increased, 5 mm right middle lobe nodule which is unchanged and stable since 06/28/2015, no followup needed, fatty liver, old granulomatous disease of the spleen, fullness of the adrenals with slight nodularity similar to previous study. Status post partial ascending colectomy and hysterectomy. Mild free fluid in the pelvis which is nonspecific and new since prior study. Colonic diverticulosis without diverticulitis. ASSESSMENT AND PLAN: This is an 79-year-old FULL CODE with history of pseudoclaudication, colonic polyps, fatty liver, syncope with collapse, drop attacks, anxiety and depression, mitral valve prolapse, cervical spine stenosis with radiculopathy who presents with several day history of left sided flank pain and found to have acute pyelonephritis, as well as a left ureteropelvic junction (UPJ) stone with obstructive uropathy. The patient will be admitted as an inpatient for two midnights for the following issues: 1. Acute left sided pyelonephritis. The patient has been given intravenous Zosyn in the emergency room. Prior history of urinary tract infection (UTI) shows urine culture positive for Escherichia coli and Klebsiella all of which have been sensitive to ceftriaxone and she will be continued on ceftriaxone 2 grams IV daily. Urologist, Dr. Mariposa Liang has been consulted for her kidney stone to determine if the patient needs daily nephrostomy tube versus lithotripsy and stent placement, currently nothing by mouth after midnight, on IV fluids and pain medication. The patient has an ALLERGY TO MORPHINE. At this time the patient's ISAIAS inhibitors will be held. 2. Hypertension. This is stable at 117-139 systolic. She is not requiring any blood pressure medications at this moment due to risk of nephrotoxicity. Her ISAIAS inhibitor has been held. 3. Dyslipidemia. Continue on Lipitor. 4. Dysthymia, anxiety, depression: On chronic Cymbalta. 5. Kidney stone. Defer to urology for nephrostomy tube versus lithotripsy with stenting. Monitor in and out (I and O). IV fluids for now and urine/kidney stone panel has been sent. 6. Anemia. No acute indication for red cell count (RBC) transfusion. Currently has no gross hematuria or acute blood loss. 7. History of basal cell carcinoma. Patient followup. 8. History of mitral valve prolapse with syncope and drop attacks and collapse. No acute issues at this time. 9. History of adenomatous colon polyps. No further followup due to advanced age. 10. Allergic rhinitis. Stable, no acute symptoms. 11. Fatty liver. Monitor for now, no acute issues. 12. History of cervical spine stenosis with radiculopathy, with documented sensory neuropathy. On chronic gabapentin. Cymbalta will be held for now. CODE STATUS: FULL CODE. DIET: Nothing by mouth due to possible cystoscopy in the morning. Deep venous thrombosis (DVT) prophylaxis: Compression stockings.
[2019-03-10] MEDS: VITAMIN D 1,000 INTERNATIONAL UNITS TABLET PO SCH (09:24)
[2019-03-10] MEDS: ATORVASTATIN 20 MG TAB PO SCH (09:25)
[2019-03-10] MEDS: MAGNESIUM OXIDE 400 MG TAB (MAG-OX) PO SCH (09:25)
[2019-03-10] MEDS: DULoxetine 30 MG CAP (CYMBALTA) PO SCH (09:25)
[2019-03-10] MEDS: CYANOCOBALAMIN 500 MCG TAB PO SCH (09:25)
[2019-03-10] MEDS: cefTRIAXone SOD 2 GM in D5W MINI-BAG PLUS 50 ML IV SCH (09:26)
--- NOTE | 2019-03-10 10:29 | CR.PDOC ---
General Date of Consultation: Mar 10, 2019 Referring Provider: CORTEZ DIAL MD Consultation REASON FOR CONSULTATION/CHIEF COMPLAINT: Left proximal ureteral stone and urosepsis HISTORY OF PRESENT ILLNESS: The patient is an 79-year-old female with severe left flank pain since Saturday. This is been associated with vomiting and chills. She denied any gross hematuria, dysuria, previous history of kidney stones. She did have more urinary urgency than normal. She finally came into the emergency room and was found to have an elevated white blood count of 11.[address] scan of the abdomen and pelvis showed a 9 mm left ureteropelvic junction stone with hydronephrosis. This also showed a minimal left pleural effusion and did not unchanged 5 mm right middle lobe nodule in her lungs. A urinalysis showed too numerous to count white blood cells and 17 red blood cells per high- power field. She was given Zosyn in the ER and is now on ceftriaxone. The plan is to bring her to the operating room today for cystoscopy and left ureteral stent placement. ALLERGIES: Please see below. HOME MEDICATIONS: Please see below. PAST MEDICAL HISTORY: 1. Anxiety, depression. 2. Hypertension. 3. Mitral valve prolapse. 4. Adenomatous colonic polyp. 5. Allergic rhinitis. 6. Fatty liver. 7. Vitamin D deficiency. 8. Syncope with collapse and drop attacks. 9. Pseudoclaudication. 10. Sensory neuropathy. 11. Diabetes. 12. Hypercholesterolemia. 13. Dysthymia. 14. Cervical spinal stenosis with radiculopathy. 15. History of basal cell carcinoma times four. PAST SURGICAL HISTORY: 1. Tubal ligation. 2. Bilateral cataract extraction 2016. 3 Transvaginal hysterectomy for uterine prolapse. 4. Total right knee 2015. 5. Removal of fibroid tumors in the breast. 6. Arthroscopy of the right knee with repair of torn meniscus 2014. 7. Prolapse bladder repair 1998. 8. Laparoscopic right hemicolectomy for a large benign cecal polyp. 9. Mohs surgery. 10. Basal cell carcinoma removed from the [facility] 2013. FAMILY HISTORY: Noncontributory SOCIAL HISTORY: She is and lives alone and is able to perform all activities of daily living. She denies any history of smoking or alcohol REVIEW OF SYSTEMS: A 12 system review was essentially negative except for some urgency, chills, and the pain as above PHYSICAL EXAMINATION: VITAL SIGNS: Please see below. GENERAL APPEARANCE: Well-developed well-nourished female feeling much more comfortable than when she was admitted through the ER RESPIRATORY: No use of accessory muscles but she does have some bibasilar crackles CARDIOVASCULAR: Regular rate and rhythm and no rubs gallops or murmurs are appreciated ABDOMEN: Soft with some very minimal tenderness on the left side and positive left CVA tenderness EXTREMITIES: Left CVA tenderness but no cyanosis clubbing edema or calf tenderness NEUROLOGICAL: Nonfocal PSYCHIATRIC: Alert and oriented 3 LABORATORY DATA: Please see below. ASSESSMENT/PLAN: -9 mm obstructing left ureteropelvic junction stone with an elevated white blood count and chills and positive urinalysis for stent placement today -No previous history of kidney stones -Await final urine culture and continue ceftriaxone and medical management at this time We discussed exactly how the surgical procedure is done and what to expect both pre-and post-procedurally. She understands that we are not going to be taking care of the stone today and just placing the stent. We discussed that the stent can be quite uncomfortable and eventually will need to be removed. She understands that the stone will need to be taken care of in the future either by ureteroscopy or possible ESWL. Vital Signs/I&O Vital Signs Date Time Temp Pulse Resp B/P (MAP) Pulse Ox O2 Delivery O2 Flow Rate FiO2 03/10/19 06:00 98.5 90 20 133/66 (88) 95 Room Air I&O- Last 24 Hours up to 6 AM 03/10/19 06:00 Intake Total 150 ml Output Total 750 ml Balance -600 ml Laboratory Data Labs 24H Laboratory Tests 2 03/09/19 20:10: Immature Granulocyte % (Auto) 2.3, Neutrophils (%) (Auto) 85.7H, Lymphocytes (%) (Auto) 4.9L, Monocytes (%) (Auto) 7.0H, Eosinophils (%) (Auto) 0.0, Basophils (%) (Auto) 0.1, Neutrophils # (Auto) 10.1H, Lymphocytes # (Auto) 0.6L, Monocytes # (Auto) 0.8, Eosinophils # (Auto) 0.0, Basophils # (Auto) 0.0, Nucleated Red Blood Cells % (auto) 0.0, Lactic Acid Level 1.4, Total Bilirubin 0.6, Direct Bilirubin 0.2, Aspartate Amino Transf (AST/SGOT) 8, Alanine Aminotransferase (ALT/SGPT) 19, Alkaline Phosphatase 85, Total Creatine Kinase 40, Creatine Kinase MB < 1.0, Creatine Kinase MB Relative Index 2.50, Troponin I < 0.02, Total Protein 6.6, Albumin 3.2, Albumin/Globulin Ratio 0.94L, Lipase 38L 03/09/19 20:17: POC Glucose (Misc Panel) 228H, POC Sodium (Misc Panel) 133L, POC Potassium (Misc Panel) 4.2, POC Chloride (Misc Panel) 96L, POC Total CO2 (Misc Panel) 27.0, POC Blood Urea Nitrogen (Misc Panel 24, POC Ionized Calcium (Misc Panel) 5.6H, POC Creatinine (Misc Panel) 1.1, POC Hematocrit (Misc Panel) 36.0L 03/09/19 23:08: Urine Color YELLOW, Urine Appearance TURBIDH, Urine pH 5.0, Urine Specific [place] 1.042, Urine Protein 2+H, Urine Glucose (UA) 3+H, Urine Ketones NEGATIVE, Urine Blood 2+H, Urine Nitrite NEGATIVE, Urine Bilirubin NEGATIVE, Urine Urobilinogen 0.2, Urine Leukocyte Esterase 3+H, Urine WBC (Auto) TNTCH, U rine RBC (Auto) 17H, Urine Hyaline Casts (Auto) 0, Urine Bacteria (Auto) 2+H, Urine Squamous Epithelial Cells 0, Urine Mucus (Auto) SMALL, Urine Sperm (Auto) 03/10/19 05:42: Bedside Glucose (Misc Panel) 223H 03/10/19 06:34: Immature Granulocyte % (Auto) 2.1, Neutrophils (%) (Auto) 83.2H, Lymphocytes (%) (Auto) 6.7L, Monocytes (%) (Auto) 7.8H, Eosinophils (%) (Auto) 0.0, Basophils (%) (Auto) 0.2, Neutrophils # (Auto) 9.3H, Lymphocytes # (Auto) 0.8L, Monocytes # (Auto) 0.9H, Eosinophils # (Auto) 0.0, Basophils # (Auto) 0.0, Nucleated Red Blood Cells % (auto) 0.0, Anion Gap 7L, Glomerular Filtration Rate 50.3, Calcium Level 10.1 CBC/BMP Laboratory Tests 03/09/19 20:10 03/10/19 06:34 Microbiology Microbiology 03/09/19 Urine Culture, Received Pending 03/09/19 Blood Culture, Received Pending 03/09/19 Blood Culture, Received Pending Allergies Coded Allergies: TAPE (Verified Allergy, Intermediate, RASH, 03/09/19) homatropine (Verified Allergy, Unknown, 03/09/19) latex (Verified Allergy, Unknown, 03/09/19) tobramycin (Verified Allergy, Unknown, 03/09/19) morphine (Verified Adverse Reaction, Unknown, BLINDNESS, 03/09/19) BLINDNESS Home Medications Scheduled Atorvastatin Calcium (Atorvastatin Calcium) 40 Mg Tablet, 40 MG PO DAILY, (Reported) Calcium Carbonate/Vitamin D3 (Calcium 600-Vit D3 400 Tablet) 1 Each Tablet, 1 TAB PO BID, (Reported) TAKES SECOND DOSE AFTER DINNER Cholecalciferol (Vitamin D3) (Vitamin D3) 2,000 Unit Tab, 2,000 UNIT PO DAILY, (Reported) Cyanocobalamin (Vitamin B-12) (Vitamin B-12) 1,000 Mcg Tab, 1,000 MCG PO DAILY, (Reported) Duloxetine Hcl (Duloxetine HCl) 60 Mg Cap, 60 MG PO DAILY, (Reported) Furosemide (Lasix) 40 Mg Tablet, 40 MG PO DAILY, (Reported) Gabapentin (Gabapentin) 100 Mg Cap, 200 MG PO QHS, (Reported) Lisinopril (Lisinopril) 20 Mg Tablet, 20 MG PO DAILY, (Reported) Magnesium Oxide (Magnesium) 400 Mg Cap, 400 MG PO DAILY, (Reported) Metformin HCl (Metformin HCl ER) 750 Mg Tab.er.24h, 1,500 MG PO QPM, (Reported) TAKES AFTER DINNER Naproxen (Naproxen) 500 Mg Tablet, 500 MG PO QHS, (Reported) Pioglitazone HCl (Pioglitazone HCl) 30 Mg Tab, 30 MG PO DAILY, (Reported) Spironolactone (Spironolactone) 25 Mg Tab, 12.5 MG PO DAILY, (Reported) Scheduled PRN Fluticasone Propionate (Flonase Allergy Relief) 9.9 Ml [place].susp, 2 SPRAYS NA DAILY PRN for NASAL CONGESTION, (Reported) ALEXANDRA PICHARDO MD Mar 10, 2019 10:29
[2019-03-10] MEDS ORDERED: ONDANSETRON 4MG/2ML VIAL (J2405) IV PRN ×3 (13:30→16:45)
[2019-03-10] MEDS ORDERED: CONRAY-60 60% 50ML VIAL (Q9961) As Ordered ONE (13:38)
[2019-03-10] MEDS: ACETAMINOPHEN TAB 650MG DOSE (2X325MG) PO PRN (13:43)
[2019-03-10] MEDS ORDERED: ONDANSETRON 4MG/2ML VIAL (J2405) As Ordered ONE (15:07)
[2019-03-10] MEDS ORDERED: LIDOCAINE 2% INJ 100 MG/5 ML SDV (FOR ANES.) As Ordered ONE (15:07)
[2019-03-10] MEDS ORDERED: PROPOFOL 200 MG/20 ML VIAL As Ordered ONE (15:07)
[2019-03-10] MEDS ORDERED: MIDAZOLAM INJ 2 MG/2 ML VIAL (J2250) As Ordered ONE (15:08)
[2019-03-10] MEDS ORDERED: fentaNYL 100 MCG/2 ML INJECTION (J3010) As Ordered ONE (15:08)
[2019-03-10] MEDS ORDERED: ACETAMINOPHEN 1000MG 100ML IV BTL (OFIRMEV) (J0131 PER 10MG) As Ordered ONE (16:04)
--- NOTE | 2019-03-10 16:29 | ROOPDOC ---
[facility] Report Of Operation Report of Operation DATE OF PROCEDURE: 03/10/19 PREPROCEDURE DIAGNOSES: 9 mm left ureteral pelvic junction stone POSTPROCEDURE DIAGNOSES: Same PROCEDURE: Cystoscopy and left ureteral stent placement SURGEON: Mariposa Pichardo MD TELECOM ASSISTANT: None ANESTHESIA: MAC ESTIMATED BLOOD LOSS: None COMPLICATIONS: None REMARKS: Whitish Debris in Urine PROCEDURE NOTE: The patient is an 79-year-old female that had a 3 day history of left flank pain and nausea who came to the hospital and was found to have a 9 mm left ureteropelvic junction obstructing stone and too numerous to count white blood cells in her urine. She has difficulty urinating so a Hernandez catheter was placed and her urine was quite purulent. After discussing all different options, alternatives, risks, and benefits it was decided to bring her to the operating room for cystoscopy and left ureteral stent placement. Clearly understands that first we are just going to drain the kidney and treat her infection before taking care of the stone which will be done as a separate surgical procedure. We discussed that the stent can be quite uncomfortable and will need to be removed in the future. Informed consent was obtained in both verbal and written form. DESCRIPTION OF PROCEDURE: The patient was brought into the operating room and sequential compression devices were in place. Anesthesia was induced. She was then placed in the lithotomy position and careful attention was paid that her pressure points were well-padded and protected. Next a 21 Bhutanese cystoscope was inserted. The bladder had a white out of debris throughout. What I could see of the bladder lining looked normal. The left ureteral orifice was seen and a wire was placed under fluoroscopy. Next a 6 Bhutanese universal double-J ureteral stent was placed over the guidewire. The guidewire was removed and there was excellent curl seen in the left renal pelvis and down in the bladder. A 18 [place] Hernandez catheter was replaced. The patient tolerated the procedure well and was returned to the recovery room in stable condition. She will follow-up in the office with a KUB prior to decide to proceed with ureteroscopic stone manipulation in the future ESWL once her infection is clear. MARIPOSA PICHARDO MD Mar 10, 2019 16:29
--- NOTE | 2019-03-10 16:40 | REP ---
Retrograde pyelogram: Single view. History: Stent placement. 0.02 seconds of fluoroscopy time is reported. Findings: A single last image hold fluoroscopically obtained spot radiograph of the abdomen demonstrates a double pigtail ureteral stent in place. No laterality markers are noted. Electronically Signed by Cricket Mosquera MD 03/10/2019 07:52 P
[2019-03-10] MEDS ORDERED: LR 1,000 ML IV SCH ×2 (16:45)
[2019-03-10] MEDS ORDERED: METOCLOPRAMIDE INJ 10MG/2ML VIAL (J2765) IV PRN ×2 (16:45)
[2019-03-10] MEDS ORDERED: fentaNYL 100 MCG/2 ML INJECTION (J3010) IV PRN ×2 (16:45)
[2019-03-10] MEDS ORDERED: PERCOCET 5MG/325MG TAB PO PRN ×2 (16:45)
--- NOTE | 2019-03-10 17:37 | IPNPDOC ---
Date Seen The patient was seen on 03/10/19. Progress Note SUBJECTIVE: 79-year-old female with past medical history of hypertension, mitral prolapse, diabetes, hypertension is admitted for obstructing left UPJ stone and pyelonephritis. She is being empirically treated with ceftriaxone, blood cultures are per limited positive for gram-negative rods, evaluated by urology, plan for stent placement later today. She reports moderate left flank pain, intermittent, nonradiating, no additional complaints. She denies any nausea, vomiting, chest pain or diarrhea. 10 point review of system was negative except for above PHYSICAL EXAMINATION: VITAL SIGNS: Please see below. GENERAL: No distress HEENT: Normocephalic, atraumatic, moist mucous membranes NECK: Supple CARDIOVASCULAR EXAMINATION: S1, S2, no murmurs RESPIRATORY EXAMINATION: Clear to auscultation, no wheezing ABDOMINAL EXAMINATION: Soft, mild to moderate left lower quadrant/left flank/left CVA tenderness, nondistended, positive bowel sounds EXTREMITIES: Range of motion intact SKIN: No rash NEUROLOGICAL EXAMINATION: Alert and oriented 3, no focal deficits PSYCHIATRIC EXAMINATION: Calm and cooperative LABORATORY DATA, IMAGING STUDIES, MICROBIOLOGY: Please see below. DVT prophylaxis ordered?: Yes ASSESSMENT AND PLAN: 79-year-old female with past medical history of hypertension, mitral valve prolapse, diabetes and hyperlipidemia is admitted for pyelonephritis secondary to obstructing left UVJ stone. PROBLEMS: 1. Pyelonephritis: . Secondary to obstructing stone in the left UVJ, evaluated by urology, plan for stent placement later today. Blood cultures positive. Preliminary growing gram-negative rods, continue ceftriaxone. Continue IV fluids, pain control, Zofran as needed for nausea. 2. Diabetes mellitus: Hold Home meds, will start sliding scale insulin. Once patient is eating.. 3. Hyperlipidemia: Continue atorvastatin. DVT prophylaxis: Heparin subcutaneous GI prophylaxis: Not needed VS, I&O, 24H, Fishbone Vital Signs/I&O Vital Signs Date Time Temp Pulse Resp B/P (MAP) Pulse Ox O2 Delivery O2 Flow Rate FiO2 03/10/19 16:49 97.8 82 18 94 Room Air 03/10/19 16:45 134/58 (83) 03/10/19 16:35 2 I&O- Last 24 Hours up to 6 AM 03/10/19 06:00 Intake Total 150 ml Output Total 750 ml Balance -600 ml Laboratory Data 24H LABS Laboratory Tests 2 03/09/19 20:10: Immature Granulocyte % (Auto) 2.3, Neutrophils (%) (Auto) 85.7H, Lymphocytes (%) (Auto) 4.9L, Monocytes (%) (Auto) 7.0H, Eosinophils (%) (Auto) 0.0, Basophils (%) (Auto) 0.1, Neutrophils # (Auto) 10.1H, Lymphocytes # (Auto) 0.6L, Monocytes # (Auto) 0.8, Eosinophils # (Auto) 0.0, Basophils # (Auto) 0.0, Nucleated Red Blood Cells % (auto) 0.0, Lactic Acid Level 1.4, Total Bilirubin 0.6, Direct Bilirubin 0.2, Aspartate Amino Transf (AST/SGOT) 8, Alanine Aminotransferase (ALT/SGPT) 19, Alkaline Phosphatase 85, Total Creatine Kinase 40, Creatine Kinase MB < 1.0, Creatine Kinase MB Relative Index 2.50, Troponin I < 0.02, Total Protein 6.6, Albumin 3.2, Albumin/Globulin Ratio 0.94L, Lipase 38L 03/09/19 20:17: POC Glucose (Misc Panel) 228H, POC Sodium (Misc Panel) 133L, POC Potassium (Misc Panel) 4.2, POC Chloride (Misc Panel) 96L, POC Total CO2 (Misc Panel) 27.0, POC Blood Urea Nitrogen (Misc Panel 24, POC Ionized Calcium (Misc Panel) 5.6H, POC Creatinine (Misc Panel) 1.1, POC Hematocrit (Misc Panel) 36.0L 03/09/19 23:08: Urine Color YELLOW, Urine Appearance TURBIDH, Urine pH 5.0, Urine Specific Edwards 1.042, Urine Protein 2+H, Urine Glucose (UA) 3+H, Urine Ketones NEGATIVE, Urine Blood 2+H, Urine Nitrite NEGATIVE, Urine Bilirubin NEGATIVE, Urine Urobilinogen 0.2, Urine Leukocyte Esterase 3+H, Urine WBC (Auto) TNTCH, Urine RBC (Auto) 17H, Urine Hyaline Casts (Auto) 0, Urine Bacteria (Auto) 2+H, Urine Squamous Epithelial Cells 0, Urine Mucus (Auto) SMALL, Urine Sperm (Auto) 03/10/19 05:42: Bedside Glucose (Misc Panel) 223H 03/10/19 06:34: Immature Granulocyte % (Auto) 2.1, Neutrophils (%) (Auto) 83.2H, Lymphocytes (%) (Auto) 6.7L, Monocytes (%) (Auto) 7.8H, Eosinophils (%) (Auto) 0.0, Basophils (%) (Auto) 0.2, Neutrophils # (Auto) 9.3H, Lymphocytes # (Auto) 0.8L, Monocytes # (Auto) 0.9H, Eosinophils # (Auto) 0.0, Basophils # (Auto) 0.0, Nucleated Red Blood Cells % (auto) 0.0, Anion Gap 7L, Glomerular Filtration Rate 50.3, Calcium Level 10.1 03/10/19 11:31: Bedside Glucose (Misc Panel) 155H CBC/BMP Laboratory Tests 03/09/19 20:10 03/10/19 06:34 Microbiology Microbiology 03/09/19 Urine Culture, Received Pending 03/09/19 Blood Culture, Received Pending 03/09/19 Blood Culture - Preliminary, Resulted JESSICA ALMANZA MD Mar 10, 2019 17:37
--- NOTE | 2019-03-11 01:13 | REPVR ---
PROCEDURE INFORMATION: Exam: US Duplex Lower Extremity Veins Exam date and time: 03/11/2019 12:42 AM Clinical history: 79 years old, female; Pain; Leg, lower; Bilateral; Additional info: R/O dvt TECHNIQUE: Imaging protocol: Real-time duplex ultrasound of the Lower Extremities with 2-D ferraro scale, color Doppler flow and spectral waveform analysis with image documentation. Complete exam focused on the bilateral lower extremity veins. COMPARISON: US Duplex, Ext,LOWER veins,unilat 12/05/2015 12:36 PM FINDINGS: Right deep veins: Unremarkable. The common femoral, femoral and popliteal veins are patent without thrombus. Normal Doppler waveforms. Normal compressibility and/or augmentation response. Right superficial veins: Saphenofemoral junction is patent without thrombus. Left deep veins: Unremarkable. The common femoral, femoral and popliteal veins are patent without thrombus. Normal Doppler waveforms. Normal compressibility and/or augmentation response. Left superficial veins: Saphenofemoral junction is patent without thrombus. Soft tissues: Unremarkable. IMPRESSION: No sonographic evidence of deep vein thrombosis. Electronically signed by: Yousif Trevino On 03/11/2019 01:12:24 AM
[2019-03-11 02:00] VITALS: BP 115/56
[2019-03-11] MEDS: ACETAMINOPHEN TAB 650MG DOSE (2X325MG) PO PRN (05:17)
[2019-03-11] MEDS: NS 1,000 ML IV SCH ×2 (05:17→22:17)
[2019-03-11 06:00] VITALS: BP 137/62
[2019-03-11 06:41] LABS: BASO % 0.2 % (0.0-1.0); EOS % 0.3 % (0.0-3.0); HEMATOCRIT 30.6 % (36.0-47.0); LYMPH # 0.7 10^3/uL (1.5-5.0); LYMPH % 7.8 % (24.0-44.0); MEAN CORPUSCULAR HEMOGLOBIN 30.9 pg (27.0-33.0); MEAN CORPUSCULAR HGB CONC 32.7 g/dl (32.0-36.5); MEAN CORPUSCULAR VOLUME 94.4 fl (80.0-96.0); MONO # 0.6 10^3/uL (0.0-0.8); MONO % 6.4 % (0.0-5.0); NEUTROPHILS # 7.5 10^3/uL (1.5-8.5); NEUTROPHILS % 84.8 % (36.0-66.0); PLATELET COUNT, AUTOMATED 101 10^3/uL (150-450); RED BLOOD COUNT 3.24 10^6/uL (4.00-5.40); WHITE BLOOD COUNT 8.9 10^3/uL (4.0-10.0)
[2019-03-11 07:09] LABS: ALBUMIN 2.3 GM/DL (3.2-5.2); ALT/SGPT 45 U/L (12-78); BILIRUBIN,TOTAL 0.4 MG/DL (0.2-1.0); BLOOD UREA NITROGEN 22 MG/DL (7-18); CALCIUM LEVEL 9.7 MG/DL (8.8-10.2); CARBON DIOXIDE LEVEL 27 MEQ/L (21-32); CHLORIDE LEVEL 107 MEQ/L (98-107); CREATININE FOR GFR 0.87 MG/DL (0.55-1.30); GLOMERULAR FILTRATION RATE > 60.0 (>32); GLUCOSE, FASTING 179 MG/DL (70-100); MAGNESIUM LEVEL 1.8 MG/DL (1.8-2.4); PHOSPHORUS LEVEL 1.2 MG/DL (2.5-4.9); POTASSIUM SERUM 3.9 MEQ/L (3.5-5.1); SODIUM LEVEL 137 MEQ/L (136-145); TOTAL PROTEIN 6.2 GM/DL (6.4-8.2)
[2019-03-11] MEDS ORDERED: MAG SULF 1GM/100ML (MAG RUN) 1 GM in IV 1 EA IV ONE (08:45)
[2019-03-11] MEDS ORDERED: SODIUM PHOSPHATE INJ 30 MMOL in D5W 500 ML IV ONE (10:00)
[2019-03-11] MEDS: VITAMIN D 1,000 INTERNATIONAL UNITS TABLET PO SCH (10:01)
[2019-03-11] MEDS: MAGNESIUM OXIDE 400 MG TAB (MAG-OX) PO SCH (10:02)
[2019-03-11] MEDS: DULoxetine 30 MG CAP (CYMBALTA) PO SCH (10:02)
[2019-03-11] MEDS: ATORVASTATIN 20 MG TAB PO SCH (10:02)
[2019-03-11] MEDS: CYANOCOBALAMIN 500 MCG TAB PO SCH (10:02)
[2019-03-11] MEDS: HEPARIN SOD (PORCINE) 5000 UNITS/ML VIAL SQ SCH ×2 (10:03→22:16)
[2019-03-11 10:25] VITALS: BP 130/90
--- NOTE | 2019-03-11 12:18 | IPNPDOC ---
Text Note Date of Service The patient was seen on 03/11/19. NOTE Cielo is postop day #1 left ureteral stent placement for an obstructing left UPJ stone measuring 9 mm. She is feeling much better and her Hernandez catheter was removed this morning. She did have a temperature though of 99.2 overnight but her white blood count is down to 8.9. Urine cultures and blood cultures are still pending. Physical exam: This a well-developed well-nourished female in no apparent respiratory distress. She has no CVA tenderness today and her abdomen is soft and nontender. She has no calf tenderness. Impression: -Postop day #1 cystoscopy and left ureteral stent placement for a 9 mm obstructing left UPJ stone now doing well Plan: -Await final urine cultures and treat with antibiotics accordingly -Patient can be discharged at any time from a urologic standpoint with follow-up in urology office to be scheduled for definitive stone management with either ESWL or ureteroscopic stone manipulation. I will order a KUB today. VS,Rosettae, I+O VS, Rosettae, I+O Laboratory Tests 03/11/19 06:16 Vital Signs Date Time Temp Pulse Resp B/P (MAP) Pulse Ox O2 Delivery O2 Flow Rate FiO2 03/11/19 10:25 97.8 90 14 130/90 (103) 96 Room Air 03/10/19 16:35 2 I&O- Last 24 Hours up to 6 AM 03/11/19 06:00 Intake Total 1985 ml Output Total 1250 ml Balance 735 ml ALEXANDRA PICHARDO MD Mar 11, 2019 12:18
--- NOTE | 2019-03-11 12:31 | IPNPDOC ---
Date Seen The patient was seen on 03/11/19. Progress Note SUBJECTIVE: 79-year-old female with past medical history of hypertension, mitral prolapse, diabetes, hypertension is admitted for obstructing left UPJ stone and pyelonephritis. She is being empirically treated with ceftriaxone, blood cultures are per limited positive for gram-negative rods, evaluated by urology, plan for stent placement later today. She reports moderate left flank pain, intermittent, nonradiating, no additional complaints. She denies any nausea, vomiting, chest pain or diarrhea. 03/11/2019 Patient underwent stent placement yesterday, reports slight improvement, abdominal/flank pain. She has no other complaints at this time, denies short of breath, chest pain, nausea, vomiting or diarrhea. Patient will be evaluated by physical therapy later today, restart diet. 10 point review of system was negative except for above PHYSICAL EXAMINATION: VITAL SIGNS: Please see below. GENERAL: No distress HEENT: Normocephalic, atraumatic, moist mucous membranes NECK: Supple CARDIOVASCULAR EXAMINATION: S1, S2, no murmurs RESPIRATORY EXAMINATION: Clear to auscultation, no wheezing ABDOMINAL EXAMINATION: Soft, mild to moderate left lower quadrant/left flank/left CVA tenderness, nondistended, positive bowel sounds EXTREMITIES: Range of motion intact SKIN: No rash NEUROLOGICAL EXAMINATION: Alert and oriented 3, no focal deficits PSYCHIATRIC EXAMINATION: Calm and cooperative LABORATORY DATA, IMAGING STUDIES, MICROBIOLOGY: Please see below. DVT prophylaxis ordered?: Yes ASSESSMENT AND PLAN: 79-year-old female with past medical history of hypertension, mitral valve prolapse, diabetes and hyperlipidemia is admitted for pyelonephritis secondary to obstructing left UVJ stone. PROBLEMS: 1. Pyelonephritis: Secondary to obstructing stone in the left UVJ, s/p stent placement yesterday Blood cultures positive. Preliminary growing gram-negative rods, continue ceftriaxone. Continue IV fluids, pain control, Zofran as needed for nausea. 2. Diabetes mellitus: Hold Home meds, sliding scale insulin with fingersticks qAC & HS 3. Hyperlipidemia: Continue atorvastatin. DVT prophylaxis: Heparin subcutaneous GI prophylaxis: Not needed VS, I&O, 24H, Fishbone Vital Signs/I&O Vital Signs Date Time Temp Pulse Resp B/P (MAP) Pulse Ox O2 Delivery O2 Flow Rate FiO2 03/11/19 10:25 97.8 90 14 130/90 (103) 96 Room Air 03/10/19 16:35 2 I&O- Last 24 Hours up to 6 AM 03/11/19 06:00 Intake Total 1985 ml Output Total 1250 ml Balance 735 ml Laboratory Data 24H LABS Laboratory Tests 2 03/11/19 00:58: Bedside Glucose (Misc Panel) 203H 03/11/19 06:16: Immature Granulocyte % (Auto) 0.5, Neutrophils (%) (Auto) 84.8H, Lymphocytes (%) (Auto) 7.8L, Monocytes (%) (Auto) 6.4H, Eosinophils (%) (Auto) 0.3, Basophils (%) (Auto) 0.2, Neutrophils # (Auto) 7.5, Lymphocytes # (Auto) 0.7L, Monocytes # (Auto) 0.6, Eosinophils # (Auto) 0.0, Basophils # (Auto) 0.0, Nucleated Red Blood Cells % (auto) 0.0, Anion Gap 3L, Glomerular Filtration Rate > 60.0, Calcium Level 9.7, Phosphorus Level 1.2L, Magnesium Level 1.8, Total Bilirubin 0.4, Aspartate Amino Transf (AST/SGOT) 34, Alanine Aminotransferase (ALT/SGPT) 45, Alkaline Phosphatase 112, Total Protein 6.2L, Albumin 2.3#L, Albumin/Globulin Ratio 0.59L 03/11/19 11:39: Bedside Glucose (Misc Panel) 213H CBC/BMP Laboratory Tests 03/11/19 06:16 Microbiology Microbiology 03/09/19 Urine Culture, Received Pending 03/09/19 Blood Culture - Preliminary, Resulted No growth after 24 hours . All specim... 03/09/19 Blood Culture - Preliminary, Resulted JESSICA ALMANZA MD Mar 11, 2019 12:31
--- NOTE | 2019-03-11 14:52 | REP ---
KUB: Two views. History: 9 mm left-sided stone. Comparison CT study March 09, 2019. Findings: A double pigtail left ureteral stent is seen in good position. There is a calcification projecting in the lower pole region of the left kidney. This measures 11 mm in greatest diameter. No other urinary tract calculus is appreciated. There are phleboliths in the pelvis. There are surgical clips in the right lower abdomen. Bowel gas pattern is improved. Electronically Signed by Cricket Mosquera MD 03/11/2019 02:43 P
[2019-03-11] MEDS: HumaLOG INSULIN (NovoLOG) PER UNIT SC SCH ×3 (15:00→21:00)
[2019-03-11 15:04] VITALS: BP 151/92
[2019-03-11] MEDS: cefTRIAXone SOD 2 GM in D5W MINI-BAG PLUS 50 ML IV SCH (16:36)
[2019-03-11 22:00] VITALS: BP 156/83
[2019-03-12 06:25] VITALS: BP 135/71
[2019-03-12 07:22] LABS: BASO % 0.4 % (0.0-1.0); EOS # 0.1 10^3/uL (0.0-0.5); EOS % 0.6 % (0.0-3.0); HEMATOCRIT 30.8 % (36.0-47.0); HEMOGLOBIN 10.1 g/dl (12.0-15.5); LYMPH % 12.3 % (24.0-44.0); MEAN CORPUSCULAR HEMOGLOBIN 30.6 pg (27.0-33.0); MEAN CORPUSCULAR HGB CONC 32.8 g/dl (32.0-36.5); MEAN CORPUSCULAR VOLUME 93.3 fl (80.0-96.0); MONO # 0.7 10^3/uL (0.0-0.8); MONO % 9.5 % (0.0-5.0); NEUTROPHILS % 76.4 % (36.0-66.0); PLATELET COUNT, AUTOMATED 121 10^3/uL (150-450); WHITE BLOOD COUNT 7.8 10^3/uL (4.0-10.0)
[2019-03-12 07:57] LABS: BLOOD UREA NITROGEN 13 MG/DL (7-18); CALCIUM LEVEL 9.4 MG/DL (8.8-10.2); CARBON DIOXIDE LEVEL 26 MEQ/L (21-32); CHLORIDE LEVEL 104 MEQ/L (98-107); CREATININE FOR GFR 0.69 MG/DL (0.55-1.30); GLOMERULAR FILTRATION RATE > 60.0 (>32); GLUCOSE, FASTING 183 MG/DL (70-100); MAGNESIUM LEVEL 1.8 MG/DL (1.8-2.4); PHOSPHORUS LEVEL 1.5 MG/DL (2.5-4.9); POTASSIUM SERUM 3.4 MEQ/L (3.5-5.1); SODIUM LEVEL 136 MEQ/L (136-145)
[2019-03-12] MEDS: DULoxetine 30 MG CAP (CYMBALTA) PO SCH (08:10)
[2019-03-12] MEDS: HEPARIN SOD (PORCINE) 5000 UNITS/ML VIAL SQ SCH ×2 (08:11→20:42)
[2019-03-12] MEDS: VITAMIN D 1,000 INTERNATIONAL UNITS TABLET PO SCH (08:11)
[2019-03-12] MEDS: ATORVASTATIN 20 MG TAB PO SCH (08:11)
[2019-03-12] MEDS: cefTRIAXone SOD 2 GM in D5W MINI-BAG PLUS 50 ML IV SCH (08:11)
[2019-03-12] MEDS: MAGNESIUM OXIDE 400 MG TAB (MAG-OX) PO SCH (08:11)
[2019-03-12] MEDS: CYANOCOBALAMIN 500 MCG TAB PO SCH (08:11)
[2019-03-12] MEDS: HumaLOG INSULIN (NovoLOG) PER UNIT SC SCH ×4 (08:27→20:42)
[2019-03-12] MEDS: NS 1,000 ML IV SCH ×2 (08:50→22:16)
[2019-03-12] MEDS ORDERED: POTASSIUM CHLORIDE 10 MEQ SR TABLET PO ONE (09:00)
[2019-03-12] MEDS ORDERED: K-PHOS NEUTRAL 250MG TABLET (SOD.PHOSPHATE/POT.PHOSPHATE) PO ONE (09:00)
[2019-03-12] MEDS: MAG SULF 1GM/100ML (MAG RUN) 1 GM in IV 1 EA IV SCH ×2 (09:36→10:32)
[2019-03-12] MEDS ORDERED: POTASSIUM PHOSPHATE INJ 30 MMOL in D5W 500 ML IV ONE (11:00)
[2019-03-12 11:45] VITALS: BP 132/74
[2019-03-12 14:39] VITALS: BP 121/79
[2019-03-12] MEDS ORDERED: LEVA750T7 PO (16:41)
--- NOTE | 2019-03-12 16:45 | DS.PDOC ---
Discharge Summary General Date of Admission Mar 09, 2019 at 23:47 Date of Discharge 03/12/2019 Attending Physician: JESSICA ALMANZA MD Discharge Summary PROCEDURES PERFORMED DURING STAY: Left ureteral stent. ADMITTING DIAGNOSES: 1. Pyelonephritis, bacteremia, obstructive uropathy. DISCHARGE DIAGNOSES: 1. Pyelonephritis, bacteremia, obstructive uropathy. COMPLICATIONS/CHIEF COMPLAINT: Acute Pyelonephritis. HISTORY OF PRESENT ILLNESS: 79-year-old female with past medical history of hypertension and diabetes mellitus, was admitted for acute pyelonephritis and bacteremia secondary to obstructive uropathy. She underwent placement of a ureteral stent by urology yesterday. She has been doing well since then, hemodynamically stable, tolerating diet, evaluated by physical therapy, safe for discharge home with home services. Her urine and blood cultures grew Klebsiella, which is pansensitive, she was treated with 3 days of ceftriaxone in the hospital, will be discharged on Levaquin to complete her antibiotic course.. HOSPITAL COURSE: As above. DISCHARGE MEDICATIONS: Please see below. ALLERGIES: Please see below. PHYSICAL EXAMINATION: VITAL SIGNS: Please see below. GENERAL: No distress HEENT: Normocephalic, atraumatic, moist mucous membranes NECK: Supple CARDIOVASCULAR EXAMINATION: S1, S2, no murmurs RESPIRATORY EXAMINATION: Clear to auscultation, no wheezing ABDOMINAL EXAMINATION: Soft, mild left flank tenderness, nondistended, positive bowel sounds EXTREMITIES: Range of motion intact SKIN: No rash NEUROLOGICAL EXAMINATION: Alert and oriented 3, no focal deficits PSYCHIATRIC EXAMINATION: Calm and cooperative LABORATORY DATA: Please see below. PROGNOSIS: Fair ACTIVITY: As tolerated. DIET: Cardiac with consistent carbs DISCHARGE PLAN: Patient is to follow-up with urology and PCP 1-2 weeks DISPOSITION: Home with services. DISCHARGE INSTRUCTIONS: 1. As above. DISCHARGE CONDITION: Stable. TIME SPENT ON DISCHARGE: Greater than 33 minutes. Vital Signs/I&Os Vital Signs Date Time Temp Pulse Resp B/P (MAP) Pulse Ox O2 Delivery O2 Flow Rate FiO2 03/12/19 14:39 97.8 106 17 121/79 (93) 92 Room Air 03/10/19 16:35 2 I&O- Last 24 Hours up to 6 AM 03/12/19 06:00 Intake Total 2495 ml Output Total 400 ml Balance 2095 ml Laboratory Data Labs 24H Laboratory Tests 2 03/11/19 17:24: Bedside Glucose (Misc Panel) 224H 03/11/19 22:07: Bedside Glucose (Misc Panel) 196H 03/12/19 07:05: Immature Granulocyte % (Auto) 0.8, Neutrophils (%) (Auto) 76.4H, Lymphocytes (%) (Auto) 12.3L, Monocytes (%) (Auto) 9.5H, Eosinophils (%) (Auto) 0.6, Basophils (%) (Auto) 0.4, Neutrophils # (Auto) 6.0, Lymphocytes # (Auto) 1.0L, Monocytes # (Auto) 0.7, Eosinophils # (Auto) 0.1, Basophils # (Auto) 0.0, Nucleated Red Blood Cells % (auto) 0.0, Anion Gap 6L, Glomerular Filtration Rate > 60.0, Calcium Level 9.4, Phosphorus Level 1.5#L, Magnesium Level 1.8 03/12/19 11:49: Bedside Glucose (Misc Panel) 254H CBC/BMP Laboratory Tests 03/12/19 07:05 FSBS Laboratory Tests Test 03/11/19 17:24 03/11/19 22:07 03/12/19 11:49 Range/Units Bedside Glucose (Misc Panel) 224 196 254 83-110 MG/DL Microbiology Microbiology 03/09/19 Urine Culture - Final, Complete Klebsiella Pneumoniae 03/09/19 Blood Culture - Preliminary, Resulted No Growth after 48 hours. All Specime... 03/09/19 Blood Culture - Final, Complete Klebsiella Pneumoniae Discharge Medications Scheduled Atorvastatin Calcium (Atorvastatin Calcium) 40 Mg Tablet, 40 MG PO DAILY, (Reported) Calcium Carbonate/Vitamin D3 (Calcium 600-Vit D3 400 Tablet) 1 Each Tablet, 1 TAB PO BID, (Reported) TAKES SECOND DOSE AFTER DINNER Cholecalciferol (Vitamin D3) (Vitamin D3) 2,000 Unit Tab, 2,000 UNIT PO DAILY, (Reported) Cyanocobalamin (Vitamin B-12) (Vitamin B-12) 1,000 Mcg Tab, 1,000 MCG PO DAILY, (Reported) Duloxetine Hcl (Duloxetine HCl) 60 Mg Cap, 60 MG PO DAILY, (Reported) Furosemide (Lasix) 40 Mg Tablet, 40 MG PO DAILY, (Reported) Gabapentin (Gabapentin) 100 Mg Cap, 200 MG PO QHS, (Reported) Levofloxacin (Levaquin) 750 Mg Tablet, 750 MG PO DAILY Lisinopril (Lisinopril) 20 Mg Tablet, 20 MG PO DAILY, (Reported) Magnesium Oxide (Magnesium) 400 Mg Cap, 400 MG PO DAILY, (Reported) Metformin HCl (Metformin HCl ER) 750 Mg Tab.er.24h, 1,500 MG PO QPM, (Reported) TAKES AFTER DINNER Pioglitazone HCl (Pioglitazone HCl) 30 Mg Tab, 30 MG PO DAILY, (Reported) Spironolactone (Spironolactone) 25 Mg Tab, 12.5 MG PO DAILY, (Reported) Scheduled PRN Fluticasone Propionate (Flonase Allergy Relief) 9.9 Ml [place].susp, 2 SPRAYS NA DAILY PRN for NASAL CONGESTION, (Reported) Allergies Coded Allergies: TAPE (Verified Allergy, Intermediate, RASH, 03/09/19) homatropine (Verified Allergy, Unknown, 03/09/19) latex (Verified Allergy, Unknown, 03/09/19) tobramycin (Verified Allergy, Unknown, 03/09/19) morphine (Verified Adverse Reaction, Unknown, BLINDNESS, 03/09/19) BLINDNESS JESSICA ALMANZA MD Mar 12, 2019 16:45
[2019-03-12 22:00] VITALS: BP 125/69
[2019-03-13 06:00] VITALS: BP 152/83
[2019-03-13 06:09] LABS: BASO % 0.3 % (0.0-1.0); EOS # 0.1 10^3/uL (0.0-0.5); EOS % 1.2 % (0.0-3.0); HEMATOCRIT 30.6 % (36.0-47.0); HEMOGLOBIN 9.9 g/dl (12.0-15.5); LYMPH # 1.1 10^3/uL (1.5-5.0); LYMPH % 14.2 % (24.0-44.0); MEAN CORPUSCULAR HEMOGLOBIN 30.3 pg (27.0-33.0); MEAN CORPUSCULAR HGB CONC 32.4 g/dl (32.0-36.5); MEAN CORPUSCULAR VOLUME 93.6 fl (80.0-96.0); MONO # 0.8 10^3/uL (0.0-0.8); MONO % 10.5 % (0.0-5.0); NEUTROPHILS # 5.4 10^3/uL (1.5-8.5); NEUTROPHILS % 71.3 % (36.0-66.0); PLATELET COUNT, AUTOMATED 129 10^3/uL (150-450); RED BLOOD COUNT 3.27 10^6/uL (4.00-5.40); WHITE BLOOD COUNT 7.6 10^3/uL (4.0-10.0)
[2019-03-13 06:28] LABS: BLOOD UREA NITROGEN 12 MG/DL (7-18); CREATININE FOR GFR 0.71 MG/DL (0.55-1.30); GLOMERULAR FILTRATION RATE > 60.0 (>32); GLUCOSE, FASTING 192 MG/DL (70-100); SODIUM LEVEL 137 MEQ/L (136-145)
[2019-03-13 06:29] LABS: CALCIUM LEVEL 9.2 MG/DL (8.8-10.2); CARBON DIOXIDE LEVEL 26 MEQ/L (21-32); CHLORIDE LEVEL 107 MEQ/L (98-107); MAGNESIUM LEVEL 1.8 MG/DL (1.8-2.4)
[2019-03-13] MEDS: CYANOCOBALAMIN 500 MCG TAB PO SCH (08:10)
[2019-03-13] MEDS: HEPARIN SOD (PORCINE) 5000 UNITS/ML VIAL SQ SCH (08:11)
[2019-03-13] MEDS: cefTRIAXone SOD 2 GM in D5W MINI-BAG PLUS 50 ML IV SCH (08:11)
[2019-03-13] MEDS: ATORVASTATIN 20 MG TAB PO SCH (08:11)
[2019-03-13] MEDS: MAGNESIUM OXIDE 400 MG TAB (MAG-OX) PO SCH (08:11)
[2019-03-13] MEDS: DULoxetine 30 MG CAP (CYMBALTA) PO SCH (08:11)
[2019-03-13] MEDS: VITAMIN D 1,000 INTERNATIONAL UNITS TABLET PO SCH (08:11)
[2019-03-13] MEDS: HumaLOG INSULIN (NovoLOG) PER UNIT SC SCH ×2 (08:12→12:13)
[2019-03-13 08:27] LABS: PHOSPHORUS LEVEL 1.8 MG/DL (2.5-4.9)
[2019-03-13] MEDS: MAG SULF 1GM/100ML (MAG RUN) 1 GM in IV 1 EA IV SCH ×2 (09:42→12:12)
[2019-03-13] MEDS ORDERED: NEUTPW PO (13:27)
--- NOTE | 2019-03-13 13:29 | IPNPDOC ---
Date Seen The patient was seen on 03/13/19. Progress Note 03/13/2019 Patient was not discharged yesterday due to requiring 1 additional session of physical therapy, work with physical therapy today, cleared for discharge home at this time with services. Patient without any changes from yesterday, physical exam remains unchanged, electrolytes were supplemented today. Patient similarly stable for discharge at this time. VS, I&O, 24H, Fishbone Vital Signs/I&O Vital Signs Date Time Temp Pulse Resp B/P (MAP) Pulse Ox O2 Delivery O2 Flow Rate FiO2 03/13/19 06:00 99.4 68 18 152/83 (106) 93 Room Air 03/10/19 16:35 2 I&O- Last 24 Hours up to 6 AM 03/13/19 06:00 Intake Total 1860 ml Output Total 2350 ml Balance -490 ml Laboratory Data 24H LABS Laboratory Tests 2 03/12/19 16:47: Bedside Glucose (Misc Panel) 296H 03/12/19 20:30: Bedside Glucose (Misc Panel) 299H 03/13/19 05:40: Immature Granulocyte % (Auto) 2.5, Neutrophils (%) (Auto) 71.3H, Lymphocytes (%) (Auto) 14.2L, Monocytes (%) (Auto) 10.5H, Eosinophils (%) (Auto) 1.2, Basophils (%) (Auto) 0.3, Neutrophils # (Auto) 5.4, Lymphocytes # (Auto) 1.1L, Monocytes # (Auto) 0.8, Eosinophils # (Auto) 0.1, Basophils # (Auto) 0.0, Nucleated Red Blood Cells % (auto) 0.0, Anion Gap 4L, Glomerular Filtration Rate > 60.0, Calcium Level 9.2, Phosphorus Level 1.8L, Magnesium Level 1.8 03/13/19 11:48: Bedside Glucose (Misc Panel) 246H CBC/BMP Laboratory Tests 03/13/19 05:40 Microbiology Microbiology 03/09/19 Urine Culture - Final, Complete Klebsiella Pneumoniae 03/09/19 Blood Culture - Preliminary, Resulted No Growth after 72 hours. All specime... 03/09/19 Blood Culture - Final, Complete Klebsiella Pneumoniae JESSICA ALMANZA MD Mar 13, 2019 13:29
[2019-03-13 14:00] VITALS: BP 131/57
[2019-03-13] MEDS: NS 1,000 ML IV SCH (14:32)
== END 2019-03-13 16:00 | disposition home health service (06) | DRG 660 ==
LOC: M ED 19:04 → M ED INP 23:47 → M MS5PR 03-10 00:55
PROVIDERS: ADMIT General Practice; ATTEND Internal Medicine
PROC: 0T778DZ Dilation of Left Ureter with Intraluminal Device, Via Natural or Artificial Opening Endoscopic (ICD-10-PCS; principal; 2019-03-10 16:00)
DX: N13.6 Pyonephrosis (principal); R78.81 Bacteremia; I10 Essential (primary) hypertension; F34.1 Dysthymic disorder; K76.0 Fatty (change of) liver, not elsewhere classified; E55.9 Vitamin D deficiency, unspecified; E11.40 Type 2 diabetes mellitus with diabetic neuropathy, unspecified; E78.00 Pure hypercholesterolemia, unspecified; B96.1 Klebsiella pneumoniae [K. pneumoniae] as the cause of diseases classified elsewhere; B96.20 Unspecified Escherichia coli [E. coli] as the cause of diseases classified elsewhere; M48.02 Spinal stenosis, cervical region; I34.1 Nonrheumatic mitral (valve) prolapse; Z85.828 Personal history of other malignant neoplasm of skin; Z88.1 Allergy status to other antibiotic agents; Z88.5 Allergy status to narcotic agent; Z88.8 Allergy status to other drugs, medicaments and biological substances; Z98.41 Cataract extraction status, right eye; Z98.42 Cataract extraction status, left eye; Z96.651 Presence of right artificial knee joint; Z79.84 Long term (current) use of oral hypoglycemic drugs; Z79.899 Other long term (current) drug therapy; Z86.010 Personal history of colon polyps

== ENCOUNTER → 2019-03-26 | Outpatient (REF) | payer MEDICARE ==
[~2019-03-26] MED LIST changes: +ATOR40TA75 PO; +CALC1TAB74 PO; +FLON1SPR; +LASI40TA9 PO; +LEVA750T7 PO; +LISI-538 PO; +METF750T41 PO; +METH750T2 PO; +NAPR-885 PO; +NEUTPW PO; +OYST500T91 PO
[2019-03-26 16:53] LABS: BASO % 0.4 % (0.0-1.0); EOS # 0.1 10^3/uL (0.0-0.5); EOS % 0.8 % (0.0-3.0); HEMOGLOBIN 11.5 g/dl (12.0-15.5); LYMPH # 2.5 10^3/uL (1.5-5.0); LYMPH % 27.2 % (24.0-44.0); MEAN CORPUSCULAR HEMOGLOBIN 29.9 pg (27.0-33.0); MEAN CORPUSCULAR HGB CONC 30.3 g/dl (32.0-36.5); MONO # 0.8 10^3/uL (0.0-0.8); MONO % 8.1 % (0.0-5.0); NEUTROPHILS # 5.9 10^3/uL (1.5-8.5); NEUTROPHILS % 62.9 % (36.0-66.0); PLATELET COUNT, AUTOMATED 267 10^3/uL (150-450); RED BLOOD COUNT 3.84 10^6/uL (4.00-5.40); WHITE BLOOD COUNT 9.3 10^3/uL (4.0-10.0)
[2019-03-26 17:15] LABS: CALCIUM LEVEL 10.7 MG/DL (8.8-10.2); CREATININE FOR GFR 1.08 MG/DL (0.55-1.30); PHOSPHORUS LEVEL 2.9 MG/DL (2.5-4.9); POTASSIUM SERUM 4.7 MEQ/L (3.5-5.1)
== END ==
LOC: M SFHCPLAZ 13:59
PROVIDERS: ATTEND Internal Medicine
DX: I10 Essential (primary) hypertension (principal); Z87.440 Personal history of urinary (tract) infections

== ENCOUNTER → 2019-04-06 | Outpatient (CLI) | payer MEDICARE ==
[2019-04-06 13:02] LABS: APPEARANCE, URINE CLOUDY (CLEAR); BACTERIA, URINE AUTO NEGATIVE (NEGATIVE); BILIRUBIN, URINE AUTO NEGATIVE (NEGATIVE); BLOOD, URINE BLOOD 3+ (NEGATIVE); COLOR, URINE AMBER (YELLOW); GLUCOSE, URINE (UA) AUTO 3+ mg/dL (NEGATIVE); KETONE, URINE AUTO TRACE mg/dL (NEGATIVE); LEUKOCYTE ESTERASE, URINE AUTO 1+ (NEGATIVE); NITRITE, URINE AUTO NEGATIVE (NEGATIVE); PROTEIN, URINE AUTO 3+ mg/dL (NEGATIVE); RBC, URINE AUTO TNTC /HPF (0-3); SQUAMOUS EPITHELIAL CELL UR AU 2 /HPF (0-6); UROBILINOGEN, URINE AUTO 0.2 mg/dL (0.0-2.0); WBC, URINE AUTO 42 /HPF (0-3)
[2019-04-06 13:03] LABS: HEMATOCRIT 35.4 % (36.0-47.0); HEMOGLOBIN 11.1 g/dl (12.0-15.5); MEAN CORPUSCULAR HEMOGLOBIN 29.9 pg (27.0-33.0); MEAN CORPUSCULAR HGB CONC 31.4 g/dl (32.0-36.5); MEAN CORPUSCULAR VOLUME 95.4 fl (80.0-96.0); PLATELET COUNT, AUTOMATED 191 10^3/uL (150-450); RED BLOOD COUNT 3.71 10^6/uL (4.00-5.40); WHITE BLOOD COUNT 6.4 10^3/uL (4.0-10.0)
[2019-04-06 13:14] LABS: INR 1.09; PROTHROMBIN TIME 13.8 SECONDS (11.8-14.0)
[2019-04-06 13:15] LABS: PARTIAL THROMBOPLASTIN TIME 27.2 SECONDS (25.0-38.4)
[2019-04-06 13:32] LABS: CALCIUM LEVEL 10.3 MG/DL (8.8-10.2); CREATININE FOR GFR 0.97 MG/DL (0.55-1.30); GLOMERULAR FILTRATION RATE 58.8 (>32); POTASSIUM SERUM 4.8 MEQ/L (3.5-5.1)
== END ==
LOC: M WUC 10:51
PROVIDERS: ATTEND Nurse Practitioner Women's Health
DX: N13.2 Hydronephrosis with renal and ureteral calculous obstruction (principal); Z79.01 Long term (current) use of anticoagulants

== ENCOUNTER → 2019-04-08 | Outpatient (REF) | payer MEDICARE ==
[2019-04-08 19:29] LABS: APPEARANCE, URINE CLOUDY (CLEAR); BACTERIA, URINE AUTO 1+ (NEGATIVE); BILIRUBIN, URINE AUTO NEGATIVE (NEGATIVE); BLOOD, URINE BLOOD 3+ (NEGATIVE); COLOR, URINE YELLOW (YELLOW); GLUCOSE, URINE (UA) AUTO NEGATIVE (NEGATIVE); KETONE, URINE AUTO NEGATIVE (NEGATIVE); LEUKOCYTE ESTERASE, URINE AUTO 1+ (NEGATIVE); NITRITE, URINE AUTO NEGATIVE (NEGATIVE); PROTEIN, URINE AUTO 1+ mg/dL (NEGATIVE); RBC, URINE AUTO 67 /HPF (0-3); SQUAMOUS EPITHELIAL CELL UR AU 0 /HPF (0-6); UROBILINOGEN, URINE AUTO 0.2 mg/dL (0.0-2.0); WBC, URINE AUTO 8 /HPF (0-3)
== END ==
LOC: M SMT 18:14
PROVIDERS: ATTEND Urology
DX: N20.0 Calculus of kidney (principal)

== ENCOUNTER 2019-04-15 06:55 | Day surgery (SDC) | payer MEDICARE ==
[~2019-04-15] VITALS: Ht 162.6 cm; Wt 66.2 kg
[~2019-04-15 06:55] MED LIST changes: +LR 1,000 ML IV ONE; +LevoFLOXacin IV 500 MG in IV 1 EA IV ONE
[2019-04-15] MEDS ORDERED: PROPOFOL 200 MG/20 ML VIAL As Ordered ONE (08:19)
[2019-04-15] MEDS ORDERED: MIDAZOLAM INJ 2 MG/2 ML VIAL (J2250) As Ordered ONE (08:19)
[2019-04-15] MEDS ORDERED: dexameTHASONE 4 MG/ML 1ML VIAL (J1100) As Ordered ONE (08:19)
[2019-04-15] MEDS ORDERED: LIDOCAINE 2% INJ 100 MG/5 ML SDV (FOR ANES.) As Ordered ONE (08:19)
[2019-04-15] MEDS ORDERED: ONDANSETRON 4MG/2ML VIAL (J2405) As Ordered ONE (08:19)
[2019-04-15] MEDS ORDERED: fentaNYL 100 MCG/2 ML INJECTION (J3010) As Ordered ONE (08:20)
[2019-04-15] MEDS ORDERED: CONRAY-60 60% 50ML VIAL (Q9961) As Ordered ONE (08:48)
[2019-04-15] MEDS ORDERED: ACETAMINOPHEN 1000MG 100ML IV BTL (OFIRMEV) (J0131 PER 10MG) As Ordered ONE (09:23)
[2019-04-15] MEDS ORDERED: KETOROLAC 60 MG/2 ML VIAL (J1885) As Ordered ONE (09:24)
--- NOTE | 2019-04-15 10:10 | REP ---
C-ARM VIEW ABDOMEN: A single C-arm view of the abdomen is performed. A wire and catheter is seen in the left ureter. The left pelvocaliceal system is partially opacified with contrast. 3 seconds of fluoroscopy time utilized. Unreviewed
[2019-04-15] MEDS ORDERED: fentaNYL 100 MCG/2 ML INJECTION (J3010) IV PRN (10:30)
[2019-04-15] MEDS ORDERED: ACETAMINOPHEN TAB 650MG DOSE (2X325MG) PO PRN (10:30)
[2019-04-15] MEDS ORDERED: ONDANSETRON 4MG/2ML VIAL (J2405) IV PRN (10:30)
[2019-04-15] MEDS ORDERED: METOCLOPRAMIDE INJ 10MG/2ML VIAL (J2765) IV PRN (10:30)
[2019-04-15] MEDS ORDERED: PERCOCET 5MG/325MG TAB PO PRN (10:30)
[2019-04-15] MEDS ORDERED: LR 1,000 ML IV SCH (10:30)
--- NOTE | 2019-04-15 11:05 | RO ---
DATE OF PROCEDURE: 04/15/2019 PREPROCEDURE DIAGNOSIS: Left kidney stone. POSTPROCEDURE DIAGNOSIS: Left kidney stone. PROCEDURE: Cystoscopy, left ureteroscopy with laser lithotripsy and basket extraction of stones, left retrograde pyelogram with intraoperative interpretation of images, left ureteral stent removal. SURGEON: Dr. Ravin Pratt TICKET WORKER: None. ANESTHESIA: General. OPERATIVE INDICATIONS: This is an 79-year-old female who was found to have an obstructing 9 mm left ureteropelvic junction stone recently. She underwent left ureteral stent placement. She is brought to the operating room today to treat her stone. DESCRIPTION OF PROCEDURE: The patient was brought to the operating room and general anesthesia was induced. Prophylactic antibiotics were infused. She was then placed in dorsal lithotomy position and prepped and draped in the usual sterile fashion. A rigid cystoscope was inserted into the urethral meatus and advanced into the bladder. Once inside the bladder, the previously stent was grasped and withdrawn until the distal end was seen protruding from the urethral meatus. I then advanced a guide wire up the stent. The stent was then removed leaving the wire in place. I then advanced the ureteral access sheath up the wire and into the left collecting system. I went up the ureteral access sheath with a flexible ureteroscope and in the left renal pelvis a 9 mm stone was seen. The stone was then fragmented into smaller pieces using a 272 micron laser fiber. All the fragments were then removed using a basket. I then thoroughly examined the remainder of the kidney and only very tiny stones were seen. No large stone fragments remained. A retrograde pyelogram was performed and was notable for mild left hydronephrosis with no extravasation. I then withdrew the ureteroscope along with the access sheath and no additional stones were seen within the ureter. I then removed the wire. Given the ureter already appeared to be adequately dilated and there was no trauma to the ureter while removing the stone, I decided not to leave any stent. The bladder was emptied of all fluids and this marked the conclusion of the procedure. The patient was then taken out of the dorsal lithotomy position, awakened from anesthesia and transported to the recovery room in stable condition. Estimated blood loss: 5 mL. Complications: None. Specimen: Kidney stone fragments. Plan: The patient will followup in the clinic in a few weeks for a postoperative visit.
[2019-04-15 12:25] VITALS: BP 133/63
== END 2019-04-15 12:30 | disposition home or self-care (01) ==
LOC: M SDC 06:55
PROVIDERS: ATTEND Urology
DX: N20.0 Calculus of kidney (principal); I10 Essential (primary) hypertension; K21.9 Gastro-esophageal reflux disease without esophagitis; E11.9 Type 2 diabetes mellitus without complications; F41.9 Anxiety disorder, unspecified; F32.9 Major depressive disorder, single episode, unspecified; Z79.84 Long term (current) use of oral hypoglycemic drugs; Z79.899 Other long term (current) drug therapy
CPT/HCPCS: 52353; 74420; 82360; 88300; C1769; C1894; J0131; J1100; J1885; J1956; J2250; J2405; J3010; Q9961

== ENCOUNTER → 2019-04-30 | Outpatient (CLI) | payer MEDICARE ==
[~2019-04-30] MED LIST changes: -LR 1,000 ML IV ONE; -LevoFLOXacin IV 500 MG in IV 1 EA IV ONE
[2019-04-30 13:05] LABS: HEMOGLOBIN A1c 8.3 %
[2019-04-30 13:10] LABS: ALBUMIN 3.9 GM/DL (3.2-5.2); ALT/SGPT 20 U/L (12-78); BILIRUBIN,TOTAL 0.4 MG/DL (0.2-1.0); BLOOD UREA NITROGEN 32 MG/DL (7-18); CALCIUM LEVEL 10.4 MG/DL (8.8-10.2); CARBON DIOXIDE LEVEL 25 MEQ/L (21-32); CHLORIDE LEVEL 106 MEQ/L (98-107); GLOMERULAR FILTRATION RATE > 60.0 (>32); GLUCOSE, FASTING 192 MG/DL (70-100); MAGNESIUM LEVEL 2.1 MG/DL (1.8-2.4); POTASSIUM SERUM 4.7 MEQ/L (3.5-5.1); SODIUM LEVEL 138 MEQ/L (136-145); TOTAL PROTEIN 7.4 GM/DL (6.4-8.2)
[2019-04-30 13:15] LABS: TOTAL 25(OH) VITAMIN D 43.7 NG/ML (30.0-100.0)
[2019-04-30 13:20] LABS: MALB URINE SIEMENS 67.7 MG/L; MAU/CREAT RATIO 44.8 MCG/MG (0.0-30.0)
== END ==
LOC: M WUC 09:17
PROVIDERS: ATTEND Internal Medicine
DX: E55.9 Vitamin D deficiency, unspecified (principal); E11.9 Type 2 diabetes mellitus without complications; I10 Essential (primary) hypertension

== ENCOUNTER → 2019-05-07 | Outpatient (CLI) | payer MEDICARE ==
--- NOTE | 2019-05-07 15:38 | REPMRS ---
Patient History The patient states she has not had a clinical breast exam in over a year. Family history of colorectal cancer in maternal uncle. Benign US guided breast biopsy of the left breast, December 27, 2011. Benign FNA biopsy of both breasts, 1979. 4 benign excisional biopsies of both breasts, 1970. Digital Woman Screen Mammo: May 07, 2019 - Exam #: [id number] Bilateral CC and MLO view(s) were taken. Technologist: Rajwinder Hong, Technologist Prior study comparison: November 19, 2017, bilateral digital woman screen mammo performed at [facility]. January 03, 2016, digital woman screen mammo performed at [facility]. December 27, 2014, digital woman screen mammo performed at [facility]. FINDINGS: There are scattered fibroglandular densities. There is a moderate amount of residual fibroglandular tissue which is fairly symmetric. There is no interval development of dominant mass, architectural distortion, or grouped microcalcification typical of malignancy. There has been no change in the appearance of the mammogram from the prior studies. 3-D tomosynthesis shows no additional findings. Assessment: BI-RADS/ACR category 1 mammogram. Negative Mammogram. Recommendation Routine screening mammogram of both breasts in 1 year (for women over age 40). This patient's Lifetime Breast Cancer RIsk is estimated at 1.4 %. This mammogram was interpreted with the aid of an FDA-approved computer-aided dectection system. Electronically Signed By: Jeff Mosquera MD 05/07/19 [id number]
== END ==
LOC: M WHC 14:30
PROVIDERS: ATTEND Internal Medicine
DX: Z12.31 Encounter for screening mammogram for malignant neoplasm of breast (principal)

== ENCOUNTER → 2019-05-15 | Outpatient (REF) | payer MEDICARE ==
[2019-05-15 15:52] LABS: APPEARANCE, URINE CLEAR (CLEAR); BACTERIA, URINE AUTO NEGATIVE (NEGATIVE); BILIRUBIN, URINE AUTO NEGATIVE (NEGATIVE); BLOOD, URINE BLOOD NEGATIVE (NEGATIVE); COLOR, URINE YELLOW (YELLOW); GLUCOSE, URINE (UA) AUTO 3+ mg/dL (NEGATIVE); KETONE, URINE AUTO NEGATIVE (NEGATIVE); LEUKOCYTE ESTERASE, URINE AUTO NEGATIVE (NEGATIVE); MUCUS, URINE SMALL (NEGATIVE); NITRITE, URINE AUTO NEGATIVE (NEGATIVE); PROTEIN, URINE AUTO NEGATIVE (NEGATIVE); RBC, URINE AUTO 0 /HPF (0-3); SPECIFIC GRAVITY URINE AUTO 1.009 (1.002-1.035); SQUAMOUS EPITHELIAL CELL UR AU 0 /HPF (0-6); UROBILINOGEN, URINE AUTO 0.2 mg/dL (0.0-2.0); WBC, URINE AUTO 1 /HPF (0-3)
== END ==
LOC: M SMT 15:32
PROVIDERS: ATTEND Nurse Practitioner Women's Health
DX: N20.0 Calculus of kidney (principal)

== ENCOUNTER → 2019-06-08 | Outpatient (REF) | payer MEDICARE | LOC: M LAB REF 17:28 | PROVIDERS: ATTEND Dermatology | DX: C44.310 Basal cell carcinoma of skin of unspecified parts of face (principal); L57.8 Other skin changes due to chronic exposure to nonionizing radiation ==

== ENCOUNTER → 2019-08-17 | Outpatient (REF) | payer MEDICARE | LOC: M LAB REF 09:12 | PROVIDERS: ATTEND Dermatology | DX: C44.310 Basal cell carcinoma of skin of unspecified parts of face (principal) ==

== ENCOUNTER → 2019-09-02 | Outpatient (CLI) | payer MEDICARE ==
[2019-09-02 13:48] LABS: HEMATOCRIT 35.9 % (36.0-47.0); HEMOGLOBIN 11.4 g/dl (12.0-15.5); MEAN CORPUSCULAR HEMOGLOBIN 30.6 pg (27.0-33.0); MEAN CORPUSCULAR HGB CONC 31.8 g/dl (32.0-36.5); MEAN CORPUSCULAR VOLUME 96.2 fl (80.0-96.0); PLATELET COUNT, AUTOMATED 150 10^3/uL (150-450); RED BLOOD COUNT 3.73 10^6/uL (4.00-5.40); WHITE BLOOD COUNT 5.5 10^3/uL (4.0-10.0)
[2019-09-02 14:02] LABS: ALBUMIN 3.8 GM/DL (3.2-5.2); ALT/SGPT 25 U/L (12-78); BILIRUBIN,TOTAL 0.4 MG/DL (0.2-1.0); BLOOD UREA NITROGEN 24 MG/DL (7-18); CALCIUM LEVEL 9.9 MG/DL (8.8-10.2); CARBON DIOXIDE LEVEL 28 MEQ/L (21-32); CHLORIDE LEVEL 107 MEQ/L (98-107); CHOLESTEROL LEVEL 119 MG/DL (<200); CHOLESTEROL RISK RATIO 2.586 (<5); CREATININE FOR GFR 0.75 MG/DL (0.55-1.30); GLOMERULAR FILTRATION RATE > 60.0 (>32); GLUCOSE, FASTING 159 MG/DL (70-100); HDL CHOLESTEROL 46 MG/DL (>40); LDL CHOLESTEROL 53 MG/DL (<100); MAGNESIUM LEVEL 2.2 MG/DL (1.8-2.4); NON-HDL-C 73 MG/DL; POTASSIUM SERUM 4.7 MEQ/L (3.5-5.1); SODIUM LEVEL 139 MEQ/L (136-145); TOTAL PROTEIN 6.7 GM/DL (6.4-8.2); TRIGLYCERIDES LEVEL 99 MG/DL (<150)
[2019-09-02 14:10] LABS: HEMOGLOBIN A1c 7.8 %
[2019-09-02 14:27] LABS: MALB URINE SIEMENS 33.1 MG/L; MAU/CREAT RATIO 23.3 MCG/MG (0.0-30.0)
== END ==
LOC: M WUC 10:48
PROVIDERS: ATTEND Internal Medicine
DX: I10 Essential (primary) hypertension (principal); E11.9 Type 2 diabetes mellitus without complications; E78.00 Pure hypercholesterolemia, unspecified; Z86.010 Personal history of colon polyps

== ENCOUNTER → 2019-12-16 | Outpatient (REF) | payer MEDICARE | LOC: M LAB REF 12:52 | PROVIDERS: ATTEND Dermatology | DX: L82.1 Other seborrheic keratosis (principal) | CPT/HCPCS: 11102; 88305; G0463 ==

== ENCOUNTER → 2020-03-11 | Outpatient (CLI) | payer MEDICARE ==
[2020-03-11 14:14] LABS: ALBUMIN 3.9 GM/DL (3.2-5.2); ALT/SGPT 24 U/L (12-78); BILIRUBIN,TOTAL 0.6 MG/DL (0.2-1.0); BLOOD UREA NITROGEN 22 MG/DL (7-18); CALCIUM LEVEL 10.6 MG/DL (8.8-10.2); CARBON DIOXIDE LEVEL 28 MEQ/L (21-32); CHLORIDE LEVEL 106 MEQ/L (98-107); CREATININE FOR GFR 0.85 MG/DL (0.55-1.30); GLOMERULAR FILTRATION RATE > 60.0 (>32); GLUCOSE, FASTING 160 MG/DL (70-100); MAGNESIUM LEVEL 2.1 MG/DL (1.8-2.4); POTASSIUM SERUM 4.6 MEQ/L (3.5-5.1); SODIUM LEVEL 137 MEQ/L (136-145)
[2020-03-11 15:07] LABS: HEMOGLOBIN A1c 7.3 %
== END ==
LOC: M WUC 09:26
PROVIDERS: ATTEND Internal Medicine
DX: I10 Essential (primary) hypertension (principal); E11.9 Type 2 diabetes mellitus without complications

== ENCOUNTER → 2020-07-22 | Outpatient (CLI) | payer MEDICARE ==
[~2020-07-22] MED LIST changes: -LISI-538 PO; +LISI10TA22 PO; -LISI10TA4 PO; +LISI20TA33 PO; +METH-1165 PO; -METH750T2 PO
--- NOTE | 2020-07-22 14:36 | REPMRS ---
Patient History The patient states she has not had a clinical breast exam in over a year. Family history of colorectal cancer in maternal uncle. Benign US guided breast biopsy of the left breast, December 27, 2011. Benign FNA biopsy of both breasts, 1979. 4 benign excisional biopsies of both breasts, 1970. Digital Woman Screen Mammo: July 22, 2020 - Exam #: [id number] Bilateral CC and MLO view(s) were taken. Technologist: Rajwinder Hong, Technologist Prior study comparison: May 07, 2019, bilateral digital woman screen mammo performed at [facility]. November 19, 2017, bilateral digital woman screen mammo performed at [facility]. January 03, 2016, digital woman screen mammo performed at [facility]. FINDINGS: There are scattered fibroglandular densities. The Volpara volumetric breast density category is:B. There has been no change in the appearance of the mammogram from the prior studies. There is a mild amount of scattered fibroglandular density which is fairly symmetric. There is no interval development of dominant mass, architectural distortion, or grouped microcalcification suggestive of malignancy. 3-D tomosynthesis shows no additional findings. Assessment: BI-RADS/ACR category 1 mammogram. Negative Mammogram. Recommendation Routine screening mammogram of both breasts in 1 year (for women over age 40). This patient's [facility] Lifetime Breast Cancer Risk is estimated at 1.1 %. This mammogram was interpreted with the aid of an FDA-approved computer-aided dectection system. Electronically Signed By: Jeff Mosquera MD 07/22/20 [id number]
== END ==
LOC: M WHC 12:53
PROVIDERS: ATTEND Internal Medicine
DX: Z12.31 Encounter for screening mammogram for malignant neoplasm of breast (principal)

== ENCOUNTER → 2020-09-12 | Outpatient (CLI) | payer MEDICARE ==
[2020-09-12 09:49] LABS: HEMOGLOBIN 11.6 g/dl (12.0-15.5); MEAN CORPUSCULAR HEMOGLOBIN 30.5 pg (27.0-33.0); MEAN CORPUSCULAR HGB CONC 31.4 g/dl (32.0-36.5); MEAN CORPUSCULAR VOLUME 97.4 fl (80.0-96.0); PLATELET COUNT, AUTOMATED 174 10^3/uL (150-450)
[2020-09-12 10:09] LABS: HEMOGLOBIN A1c 8.3 %
[2020-09-12 10:26] LABS: ALBUMIN 3.7 GM/DL (3.2-5.2); ALT/SGPT 23 U/L (12-78); BILIRUBIN,TOTAL 0.3 MG/DL (0.2-1.0); BLOOD UREA NITROGEN 21 MG/DL (7-18); CALCIUM LEVEL 10.1 MG/DL (8.8-10.2); CARBON DIOXIDE LEVEL 31 MEQ/L (21-32); CHLORIDE LEVEL 106 MEQ/L (98-107); CHOLESTEROL LEVEL 118 MG/DL (<200); CHOLESTEROL RISK RATIO 2.269 (<5); CREATININE FOR GFR 0.76 MG/DL (0.55-1.30); GLOMERULAR FILTRATION RATE > 60.0 (>32); GLUCOSE, FASTING 182 MG/DL (70-100); HDL CHOLESTEROL 52 MG/DL (>40); LDL CHOLESTEROL 50 MG/DL (<100); MAGNESIUM LEVEL 2.1 MG/DL (1.8-2.4); NON-HDL-C 66 MG/DL; POTASSIUM SERUM 4.7 MEQ/L (3.5-5.1); SODIUM LEVEL 139 MEQ/L (136-145); THYROID STIMULATING HORMONE 0.237 uIU/ML (0.358-3.740); TRIGLYCERIDES LEVEL 78 MG/DL (<150)
[2020-09-12 10:28] LABS: MALB URINE SIEMENS 30.5 MG/L; MAU/CREAT RATIO 27.9 MCG/MG (0.0-30.0)
[2020-09-12 11:00] LABS: VITAMIN B12 LEVEL 1068 PG/ML
[2020-09-12 12:06] LABS: FOLATE 18.5 NG/ML
== END ==
LOC: M WUC 08:02
PROVIDERS: ATTEND Internal Medicine
DX: I10 Essential (primary) hypertension (principal); E11.9 Type 2 diabetes mellitus without complications; E78.00 Pure hypercholesterolemia, unspecified; F34.1 Dysthymic disorder; G62.9 Polyneuropathy, unspecified; Z86.010 Personal history of colon polyps

== ENCOUNTER → 2020-12-17 | Outpatient (CLI) | payer MEDICARE ==
[~2020-12-17] MED LIST changes: +AMOX500C PO; +PIOG1TAB55 PO; +POTASSIUM PO; +VITA200016 PO
== END ==
LOC: M LABSMTC 09:13
PROVIDERS: ATTEND Anesthesiology
DX: Z01.818 Encounter for other preprocedural examination (principal); Z11.52 Encounter for screening for COVID-19

== ENCOUNTER 2020-12-22 07:55 | Day surgery (SDC) | payer MEDICARE ==
[~2020-12-22] VITALS: Ht 162.6 cm; Wt 69.9 kg
[~2020-12-22 07:55] MED LIST changes: +NS 1,000 ML IV ONE
[2020-12-22] MEDS ORDERED: propofoL 200 MG/20 ML VIAL As Ordered ONE (09:02)
--- NOTE | 2020-12-22 09:24 | ROOR ---
Patient Name: Cielo Mon Procedure Date: 12/22/2020 9:02 AM Date of : 1940 Age: 80 Room: [facility] Gender: Female Note Status: Finalized Procedure: Colonoscopy Indications: High risk colon cancer surveillance: Personal history of colonic polyps Providers: Yemi Garcia Jr, MD Referring MD: Misael Cintron MD Requesting Provider: Medicines: Propofol per Anesthesia Complications: No immediate complications. Procedure: Pre-Anesthesia Assessment: - Prior to the procedure, a History and Physical was performed, and patient medications and allergies were reviewed. The patient is competent. The risks and benefits of the procedure and the sedation options and risks were discussed with the patient. All questions were answered and informed consent was obtained. Patient identification and proposed procedure were verified by the physician and the nurse in the pre-procedure area and in the procedure room. Mental Status Examination: alert and oriented. Airway Examination: normal oropharyngeal airway and neck mobility. Respiratory Examination: clear to auscultation. CV Examination: normal. ASA Grade Assessment: II - A patient with mild systemic disease. After reviewing the risks and benefits, the patient was deemed in satisfactory condition to undergo the procedure. The anesthesia plan was to use moderate sedation / analgesia (conscious sedation). Immediately prior to administration of medications, the patient was re-assessed for adequacy to receive sedatives. The heart rate, respiratory rate, oxygen saturations, blood pressure, adequacy of pulmonary ventilation, and response to care were monitored throughout the procedure. The physical status of the patient was re-assessed after the procedure. The Colonoscope was introduced through the anus and advanced to the ileocolonic anastomosis. The colonoscopy was performed without difficulty. The patient tolerated the procedure well. The quality of the bowel preparation was adequate. Findings: The rectum, recto-sigmoid colon, transverse colon and anastomosis appeared normal. Many small and large-mouthed diverticula were found in the sigmoid colon and descending colon. Impression: - The rectum, recto-sigmoid colon, transverse colon and colonic anastomosis are normal. - Diverticulosis in the sigmoid colon and in the descending colon. - No specimens collected. Recommendation: - Discharge patient to home (ambulatory). - Repeat colonoscopy in 5 years for surveillance. Procedure Code(s): --- Professional --- 48183, Colonoscopy, flexible; diagnostic, including collection of specimen(s) by brushing or washing, when performed (separate procedure) Diagnosis Code(s): --- Professional --- Z86.010, Personal history of colonic polyps K57.30, Diverticulosis of large intestine without perforation or abscess without bleeding CPT copyright 2019 [employer]. All rights reserved. The codes documented in this report are preliminary and upon [employer] operations consultant review may be revised to meet current compliance requirements. Yemi Garcia MD Yemi Garcia Jr, MD 12/22/2020 9:24:09 AM Electronically signed by Yemi Garcia Jr, MD Number of Addenda: 0 Note Initiated On: 12/22/2020 9:02 AM Estimated Blood Loss: Estimated blood loss: none.
[2020-12-22 10:08] VITALS: BP 164/85
== END 2020-12-22 10:11 | disposition home or self-care (01) ==
LOC: M OPP 07:55
PROVIDERS: ATTEND Surgery
DX: Z12.11 Encounter for screening for malignant neoplasm of colon (principal); Z86.010 Personal history of colon polyps; Z79.1 Long term (current) use of non-steroidal anti-inflammatories (NSAID); Z79.84 Long term (current) use of oral hypoglycemic drugs; Z79.899 Other long term (current) drug therapy; Z88.5 Allergy status to narcotic agent; Z88.8 Allergy status to other drugs, medicaments and biological substances; Z91.048 Other nonmedicinal substance allergy status; Z91.040 Latex allergy status

== ENCOUNTER → 2021-01-09 | Outpatient (CLI) | payer MEDICARE ==
[~2021-01-09] MED LIST changes: -NS 1,000 ML IV ONE
[2021-01-09 13:09] LABS: BLOOD UREA NITROGEN 28 MG/DL (7-18); CARBON DIOXIDE LEVEL 28 MEQ/L (21-32); CHLORIDE LEVEL 106 MEQ/L (98-107); CHOLESTEROL LEVEL 136 MG/DL (<200); CHOLESTEROL RISK RATIO 2.666 (<5); CREATININE FOR GFR 0.85 MG/DL (0.55-1.30); GLOMERULAR FILTRATION RATE > 60.0 (>32); GLUCOSE, FASTING 166 MG/DL (70-100); HDL CHOLESTEROL 51 MG/DL (>40); LDL CHOLESTEROL 62 MG/DL (<100); NON-HDL-C 85 MG/DL; POTASSIUM SERUM 4.5 MEQ/L (3.5-5.1); SODIUM LEVEL 138 MEQ/L (136-145); TRIGLYCERIDES LEVEL 115 MG/DL (<150)
== END ==
LOC: M WUC 09:06
PROVIDERS: ATTEND Physician Assistant
DX: E78.2 Mixed hyperlipidemia (principal); I11.9 Hypertensive heart disease without heart failure

== ENCOUNTER → 2021-01-19 | Outpatient (CLI) | payer MEDICARE ==
[2021-01-19 12:35] LABS: ALBUMIN 3.7 GM/DL (3.2-5.2); ALT/SGPT 22 U/L (12-78); BILIRUBIN,TOTAL 0.3 MG/DL (0.2-1.0); BLOOD UREA NITROGEN 27 MG/DL (7-18); CALCIUM LEVEL 10.3 MG/DL (8.8-10.2); CARBON DIOXIDE LEVEL 28 MEQ/L (21-32); CHLORIDE LEVEL 105 MEQ/L (98-107); CREATININE FOR GFR 0.79 MG/DL (0.55-1.30); FREE T4 1.04 NG/DL (0.76-1.46); GLOMERULAR FILTRATION RATE > 60.0 (>32); GLUCOSE, FASTING 146 MG/DL (70-100); MAGNESIUM LEVEL 2.1 MG/DL (1.8-2.4); POTASSIUM SERUM 4.8 MEQ/L (3.5-5.1); SODIUM LEVEL 138 MEQ/L (136-145); THYROID STIMULATING HORMONE 0.322 uIU/ML (0.358-3.740); TOTAL PROTEIN 6.9 GM/DL (6.4-8.2)
[2021-01-19 12:45] LABS: HEPATITIS B SURFACE ANTIGEN NEGATIVE (NEGATIVE)
[2021-01-19 13:06] LABS: HEMOGLOBIN A1c 8.1 %
== END ==
LOC: M WUC 10:02
PROVIDERS: ATTEND Internal Medicine
DX: I10 Essential (primary) hypertension (principal); E11.9 Type 2 diabetes mellitus without complications; F34.1 Dysthymic disorder; K76.0 Fatty (change of) liver, not elsewhere classified
CPT/HCPCS: 36415; 80053; 83036; 83735; 84439; 84443; 86317; 87340; G0472

== ENCOUNTER → 2021-07-20 | Outpatient (CLI) | payer MEDICARE ==
[2021-07-20 13:12] LABS: BASO % 0.4 % (0.0-1.0); EOS # 0.1 10^3/uL (0.0-0.5); EOS % 1.2 % (0.0-3.0); HEMATOCRIT 35.4 % (36.0-47.0); HEMOGLOBIN 11.1 g/dl (12.0-15.5); LYMPH # 2.2 10^3/uL (1.5-5.0); LYMPH % 38.4 % (24.0-44.0); MEAN CORPUSCULAR HEMOGLOBIN 30.5 pg (27.0-33.0); MEAN CORPUSCULAR HGB CONC 31.4 g/dl (32.0-36.5); MEAN CORPUSCULAR VOLUME 97.3 fl (80.0-96.0); MONO # 0.5 10^3/uL (0.0-0.8); MONO % 8.1 % (2.0-8.0); NEUTROPHILS # 2.9 10^3/uL (1.5-8.5); NEUTROPHILS % 51.4 % (36.0-66.0); PLATELET COUNT, AUTOMATED 172 10^3/uL (150-450); RED BLOOD COUNT 3.64 10^6/uL (4.00-5.40); WHITE BLOOD COUNT 5.7 10^3/uL (4.0-10.0)
[2021-07-20 14:49] LABS: ALT/SGPT 26 U/L (12-78); BILIRUBIN,TOTAL 0.2 MG/DL (0.2-1.0); BLOOD UREA NITROGEN 25 MG/DL (7-18); CALCIUM LEVEL 10.1 MG/DL (8.8-10.2); CARBON DIOXIDE LEVEL 29 MEQ/L (21-32); CHLORIDE LEVEL 107 MEQ/L (98-107); CHOLESTEROL LEVEL 120 MG/DL (<200); CREATININE FOR GFR 0.87 MG/DL (0.55-1.30); GLOMERULAR FILTRATION RATE > 60.0 (>32); GLUCOSE, FASTING 173 MG/DL (70-100); POTASSIUM SERUM 4.7 MEQ/L (3.5-5.1); SODIUM LEVEL 141 MEQ/L (136-145); TRIGLYCERIDES LEVEL 68 MG/DL (<150)
[2021-07-20 14:50] LABS: ALBUMIN 3.7 GM/DL (3.2-5.2); CHOLESTEROL RISK RATIO 2.264 (<5); FREE T4 1.13 NG/DL (0.76-1.46); HDL CHOLESTEROL 53 MG/DL (>40); LDL CHOLESTEROL 53 MG/DL (<100); MAGNESIUM LEVEL 2.1 MG/DL (1.8-2.4); NON-HDL-C 67 MG/DL; THYROID STIMULATING HORMONE 0.424 uIU/ML (0.358-3.740); TOTAL PROTEIN 6.8 GM/DL (6.4-8.2)
[2021-07-20 15:07] LABS: MALB URINE SIEMENS 29.5 MG/L; MAU/CREAT RATIO 18.9 MCG/MG (0.0-30.0)
[2021-07-20 16:23] LABS: HEMOGLOBIN A1c 8.8 %
== END ==
LOC: M WUC 08:46
PROVIDERS: ATTEND Internal Medicine
DX: I10 Essential (primary) hypertension (principal); E11.9 Type 2 diabetes mellitus without complications; E78.00 Pure hypercholesterolemia, unspecified; Z86.010 Personal history of colon polyps; R94.6 Abnormal results of thyroid function studies

== ENCOUNTER → 2021-07-26 | Outpatient (REF) | payer MEDICARE ==
[2021-07-26 17:15] LABS: APPEARANCE, URINE CLEAR (CLEAR); BACTERIA, URINE AUTO NEGATIVE (NEGATIVE); BILIRUBIN, URINE AUTO NEGATIVE (NEGATIVE); BLOOD, URINE BLOOD NEGATIVE (NEGATIVE); COLOR, URINE YELLOW (YELLOW); GLUCOSE, URINE (UA) AUTO 3+ mg/dL (NEGATIVE); KETONE, URINE AUTO NEGATIVE (NEGATIVE); LEUKOCYTE ESTERASE, URINE AUTO 1+ (NEGATIVE); NITRITE, URINE AUTO NEGATIVE (NEGATIVE); PROTEIN, URINE AUTO NEGATIVE (NEGATIVE); RBC, URINE AUTO 1 /HPF (0-3); SPECIFIC GRAVITY URINE AUTO 1.012 (1.002-1.035); SQUAMOUS EPITHELIAL CELL UR AU 0 /HPF (0-6); UROBILINOGEN, URINE AUTO 0.2 mg/dL (0.0-2.0); WBC, URINE AUTO 4 /HPF (0-3)
== END ==
LOC: M SFHCPLAZ 16:40
PROVIDERS: ATTEND Internal Medicine
DX: R30.0 Dysuria (principal); I49.9 Cardiac arrhythmia, unspecified

== ENCOUNTER → 2021-08-22 | Outpatient (CLI) | payer MEDICARE | LOC: M WUC 13:58 | PROVIDERS: ATTEND Physician Assistant | DX: S63.8X2A Sprain of other part of left wrist and hand, initial encounter (principal) ==

== ENCOUNTER 2021-09-26 07:45 | Emergency (ER) | payer MEDICARE, BC ==
[~2021-09-26] VITALS: Ht 165.1 cm; Wt 69.1 kg
[2021-09-26] MEDS ORDERED: GLIP10TA18 (08:02)
[2021-09-26] MEDS ORDERED: ISOVUE-370 76% 100ML VIAL As Ordered ONE (09:24)
[2021-09-26] MEDS ORDERED: KETOROLAC 30 MG/ML 1ML VIAL IV ONE (10:05)
[2021-09-26 11:44] VITALS: BP 147/65
[2021-09-26] MEDS ORDERED: HYDR-3713 PO ×2 (12:29→14:40)
== END 2021-09-26 12:48 | disposition home or self-care (01) ==
LOC: EDBD 07:45 → M ED 07:45
DX: S32.018A Other fracture of first lumbar vertebra, initial encounter for closed fracture (principal); G31.1 Senile degeneration of brain, not elsewhere classified; M46.92 Unspecified inflammatory spondylopathy, cervical region; Z87.81 Personal history of (healed) traumatic fracture; W10.8XXA Fall (on) (from) other stairs and steps, initial encounter; Y92.096 Garden or yard of other non-institutional residence as the place of occurrence of the external cause; Z99.89 Dependence on other enabling machines and devices; I11.9 Hypertensive heart disease without heart failure; E11.9 Type 2 diabetes mellitus without complications; Z91.048 Other nonmedicinal substance allergy status; Z88.8 Allergy status to other drugs, medicaments and biological substances; Z88.5 Allergy status to narcotic agent; Z91.040 Latex allergy status; Z88.3 Allergy status to other anti-infective agents
CPT/HCPCS: 70450; 72125; 72128; 72131; 74177; 80047; 96374; 97161; 99284; J1885; Q9967

== ENCOUNTER → 2021-11-08 | Outpatient (CLI) | payer MEDICARE, BC ==
[~2021-11-08] MED LIST changes: +GLIP10TA18; +HYDR-3713 PO
[2021-11-08 13:04] LABS: ALT/SGPT 18 U/L (12-78); BILIRUBIN,TOTAL 0.4 MG/DL (0.2-1.0); BLOOD UREA NITROGEN 26 MG/DL (7-18); CALCIUM LEVEL 10.9 MG/DL (8.8-10.2); CARBON DIOXIDE LEVEL 27 MEQ/L (21-32); CHLORIDE LEVEL 106 MEQ/L (98-107); CREATININE FOR GFR 0.86 MG/DL (0.55-1.30); GLOMERULAR FILTRATION RATE > 60.0 (>32); GLUCOSE, FASTING 144 MG/DL (70-100); POTASSIUM SERUM 4.9 MEQ/L (3.5-5.1); SODIUM LEVEL 139 MEQ/L (136-145); TOTAL PROTEIN 7.1 GM/DL (6.4-8.2)
[2021-11-08 17:10] LABS: HEMOGLOBIN A1c 6.7 %
== END ==
LOC: M WUC 09:09
PROVIDERS: ATTEND Internal Medicine
DX: I10 Essential (primary) hypertension (principal); E11.9 Type 2 diabetes mellitus without complications

== ENCOUNTER → 2021-11-24 | Outpatient (CLI) | payer MEDICARE, BC | LOC: M WHC 09:17 | PROVIDERS: ATTEND Internal Medicine | DX: M85.851 Other specified disorders of bone density and structure, right thigh (principal); M85.852 Other specified disorders of bone density and structure, left thigh; Z87.81 Personal history of (healed) traumatic fracture ==

== ENCOUNTER → 2022-01-31 | Outpatient (CLI) | payer MEDICARE, BC | LOC: M PLAIMG 11:51 | PROVIDERS: ATTEND Physician Assistant | DX: R07.89 Other chest pain (principal) ==

== ENCOUNTER → 2022-04-10 | Outpatient (CLI) | payer MEDICARE, BC ==
[2022-04-10 14:03] LABS: HEMATOCRIT 36.2 % (36.0-47.0); HEMOGLOBIN 11.2 g/dl (12.0-15.5); MEAN CORPUSCULAR HEMOGLOBIN 30.8 pg (27.0-33.0); MEAN CORPUSCULAR HGB CONC 30.9 g/dl (32.0-36.5); MEAN CORPUSCULAR VOLUME 99.5 fl (80.0-96.0); PLATELET COUNT, AUTOMATED 156 10^3/uL (150-450); RED BLOOD COUNT 3.64 10^6/uL (4.00-5.40); WHITE BLOOD COUNT 5.6 10^3/uL (4.0-10.0)
[2022-04-10 14:06] LABS: HEMOGLOBIN A1c 6.2 % (4.0-6.0)
[2022-04-10 15:31] LABS: CREATININE, URINE 36.9 MG/DL
[2022-04-10 15:32] LABS: MAU/CREAT RATIO 18.9 MCG/MG (0.0-30.0)
[2022-04-10 15:33] LABS: ALBUMIN 4.1 G/DL (3.2-5.2); ALKALINE PHOSPHATASE 59 U/L (46-116); ALT/SGPT 19 U/L (7.0-40); AST/SGOT 15 U/L (<34); BILIRUBIN,TOTAL 0.4 MG/DL (0.3-1.2); BLOOD UREA NITROGEN 31 MG/DL (9-23); CALCIUM LEVEL 10.5 MG/DL (8.3-10.6); CARBON DIOXIDE LEVEL 31 MMOL/L (20-31); CHLORIDE LEVEL 102 MMOL/L (98-107); CHOLESTEROL LEVEL 126 MG/DL (<200); CHOLESTEROL RISK RATIO 2.39 (<5); CREATININE FOR GFR 0.79 MG/DL (0.55-1.30); GLOMERULAR FILTRATION RATE > 60.0 (>32); GLUCOSE, FASTING 128 MG/DL (74-106); HDL CHOLESTEROL 52.7 MG/DL (>40); LDL CHOLESTEROL 57.1 MG/DL (<100); NON-HDL-C 73 MG/DL; POTASSIUM SERUM 4.9 MMOL/L (3.5-5.1); SODIUM LEVEL 139 MMOL/L (136-145); TOTAL PROTEIN 7.3 G/DL (5.7-8.2); TRIGLYCERIDES LEVEL 81 MG/DL (<150)
[2022-04-10 15:35] LABS: FREE T4 1.16 NG/DL (0.89-1.76); VITAMIN B12 LEVEL 663 PG/ML (211-911)
[2022-04-10 15:36] LABS: THYROID STIMULATING HORMONE 0.314 uIU/ML (0.55-4.78); TOTAL 25(OH) VITAMIN D 39.9 NG/ML (20.0-100.0)
== END ==
LOC: M PLALAB 12:04
PROVIDERS: ATTEND Internal Medicine Hematology
DX: E11.9 Type 2 diabetes mellitus without complications (principal)

== ENCOUNTER → 2022-09-13 | Outpatient (CLI) | payer MEDICARE, BC | LOC: M WHC 12:00 | PROVIDERS: ATTEND Internal Medicine Hematology | DX: Z12.31 Encounter for screening mammogram for malignant neoplasm of breast (principal) ==

== ENCOUNTER → 2022-11-28 | Outpatient (CLI) | payer MEDICARE, BC ==
[2022-11-28 17:30] LABS: HEMATOCRIT 34.3 % (36.0-47.0); HEMOGLOBIN 10.7 g/dl (12.0-15.5); MEAN CORPUSCULAR HEMOGLOBIN 30.7 pg (27.0-33.0); MEAN CORPUSCULAR HGB CONC 31.2 g/dl (32.0-36.5); MEAN CORPUSCULAR VOLUME 98.3 fl (80.0-96.0); PLATELET COUNT, AUTOMATED 151 10^3/uL (150-450); RED BLOOD COUNT 3.49 10^6/uL (4.00-5.40); WHITE BLOOD COUNT 6.4 10^3/uL (4.0-10.0)
[2022-11-28 18:01] LABS: CREATININE, URINE 65.1 MG/DL
[2022-11-28 18:02] LABS: MAU/CREAT RATIO 10.7 MCG/MG (0.0-30.0)
[2022-11-28 18:09] LABS: HEMOGLOBIN A1c 6.9 % (4.0-6.0)
[2022-11-28 18:10] LABS: C REACTIVE PROTEIN QUANTITATIV < 0.40 MG/DL (<1.0)
[2022-11-28 18:19] LABS: ALBUMIN 4.2 G/DL (3.2-5.2); ALKALINE PHOSPHATASE 61 U/L (46-116); ALT/SGPT 17 U/L (7.0-40); AST/SGOT 9 U/L (<34); BILIRUBIN,TOTAL 0.4 MG/DL (0.3-1.2); BLOOD UREA NITROGEN 26 MG/DL (9-23); CALCIUM LEVEL 10.7 MG/DL (8.3-10.6); CARBON DIOXIDE LEVEL 28 MMOL/L (20-31); CHLORIDE LEVEL 102 MMOL/L (98-107); CHOLESTEROL LEVEL 125 MG/DL (<200); CHOLESTEROL RISK RATIO 2.44 (<5); CREATININE FOR GFR 0.78 MG/DL (0.55-1.30); FREE T4 1.18 NG/DL (0.89-1.76); GLOMERULAR FILTRATION RATE > 60.0 (>32); GLUCOSE, FASTING 143 MG/DL (74-106); HDL CHOLESTEROL 51.1 MG/DL (>40); LDL CHOLESTEROL 58.3 MG/DL (<100); NON-HDL-C 73.9 MG/DL; POTASSIUM SERUM 4.5 MMOL/L (3.5-5.1); SODIUM LEVEL 138 MMOL/L (136-145); THYROID STIMULATING HORMONE 0.431 uIU/ML (0.55-4.78); TOTAL 25(OH) VITAMIN D 30.7 NG/ML (20.0-100.0); TOTAL PROTEIN 7.2 G/DL (5.7-8.2); TRIGLYCERIDES LEVEL 78 MG/DL (<150); VITAMIN B12 LEVEL 894 PG/ML (211-911)
== END ==
LOC: M PLALAB 16:05
PROVIDERS: ATTEND Internal Medicine Hematology
DX: E11.9 Type 2 diabetes mellitus without complications (principal); Z79.899 Other long term (current) drug therapy

== ENCOUNTER → 2023-01-21 | Outpatient (REF) | payer MEDICARE, BC | LOC: M SFHCDERM 16:02 | PROVIDERS: ATTEND Physician Assistant | DX: C44.212 Basal cell carcinoma of skin of right ear and external auricular canal (principal); C44.219 Basal cell carcinoma of skin of left ear and external auricular canal; L57.8 Other skin changes due to chronic exposure to nonionizing radiation ==

== ENCOUNTER → 2023-05-28 | Outpatient (CLI) | payer MEDICARE, BC ==
[2023-05-28 14:33] LABS: MEAN CORPUSCULAR HGB CONC 31.6 g/dl (32.0-36.5); MEAN CORPUSCULAR VOLUME 98.2 fl (80.0-96.0); PLATELET COUNT, AUTOMATED 223 10^3/uL (150-450); RED BLOOD COUNT 3.87 10^6/uL (4.00-5.40)
[2023-05-28 14:43] LABS: C REACTIVE PROTEIN QUANTITATIV < 0.40 MG/DL (<1.0)
[2023-05-28 14:45] LABS: ALBUMIN 3.8 G/DL (3.2-5.2); ALKALINE PHOSPHATASE 63 U/L (46-116); ALT/SGPT 16 U/L (7.0-40); AST/SGOT 17 U/L (<34); BILIRUBIN,TOTAL 0.4 MG/DL (0.3-1.2); BLOOD UREA NITROGEN 29 MG/DL (9-23); CALCIUM LEVEL 10.5 MG/DL (8.3-10.6); CARBON DIOXIDE LEVEL 32 MMOL/L (20-31); CHLORIDE LEVEL 104 MMOL/L (98-107); CHOLESTEROL LEVEL 201 MG/DL (<200); CHOLESTEROL RISK RATIO 3.91 (<5); CREATININE FOR GFR 0.75 MG/DL (0.55-1.30); GLOMERULAR FILTRATION RATE > 60.0 (>32); GLUCOSE, FASTING 153 MG/DL (74-106); HDL CHOLESTEROL 51.4 MG/DL (>40); LDL CHOLESTEROL 123.2 MG/DL (<100); NON-HDL-C 149.6 MG/DL; POTASSIUM SERUM 3.9 MMOL/L (3.5-5.1); SODIUM LEVEL 136 MMOL/L (136-145); TOTAL PROTEIN 7.3 G/DL (5.7-8.2); TRIGLYCERIDES LEVEL 132 MG/DL (<150)
[2023-05-28 14:47] LABS: FREE T4 1.25 NG/DL (0.89-1.76); THYROID STIMULATING HORMONE 0.503 uIU/ML (0.55-4.78); TOTAL 25(OH) VITAMIN D 38.9 NG/ML (20.0-100.0); VITAMIN B12 LEVEL 1271 PG/ML (211-911)
[2023-05-28 14:55] LABS: HEMOGLOBIN A1c 6.5 % (4.0-6.0)
[2023-05-28 14:56] LABS: CREATININE, URINE 121.8 MG/DL; MAU/CREAT RATIO 17.2 MCG/MG (0.0-30.0)
== END ==
LOC: M WUC 09:02
PROVIDERS: ATTEND Internal Medicine Hematology
DX: E11.9 Type 2 diabetes mellitus without complications (principal)

== ENCOUNTER → 2023-06-19 | Outpatient (CLI) | payer MEDICARE, BC | LOC: M WHC 13:18 | PROVIDERS: ATTEND Family Medicine | DX: M79.89 Other specified soft tissue disorders (principal) ==

== ENCOUNTER 2023-06-21 06:28 | Emergency (ER) | payer MEDICARE, BC ==
[~2023-06-21] VITALS: Ht 162.6 cm; Wt 64.4 kg
[2023-06-21 06:46] VITALS: TEMP 97.9
[2023-06-21 07:13] LABS: BASO % 0.3 % (0.0-1.0); EOS # 0.1 10^3/uL (0.0-0.5); EOS % 1.2 % (0.0-3.0); HEMATOCRIT 36.7 % (36.0-47.0); HEMOGLOBIN 11.9 g/dl (12.0-15.5); LYMPH # 1.3 10^3/uL (1.5-5.0); LYMPH % 19.2 % (24.0-44.0); MEAN CORPUSCULAR HEMOGLOBIN 30.6 pg (27.0-33.0); MEAN CORPUSCULAR HGB CONC 32.4 g/dl (32.0-36.5); MEAN CORPUSCULAR VOLUME 94.3 fl (80.0-96.0); MONO # 0.4 10^3/uL (0.0-0.8); MONO % 5.3 % (2.0-8.0); NEUTROPHILS # 5.1 10^3/uL (1.5-8.5); NEUTROPHILS % 73.6 % (36.0-66.0); PLATELET COUNT, AUTOMATED 168 10^3/uL (150-450); RED BLOOD COUNT 3.89 10^6/uL (4.00-5.40); WHITE BLOOD COUNT 6.9 10^3/uL (4.0-10.0)
[2023-06-21 07:35] LABS: INR 0.99; PROTHROMBIN TIME 12.8 SECONDS (12.5-14.5)
[2023-06-21 07:36] LABS: PARTIAL THROMBOPLASTIN TIME 25.4 SECONDS (24.8-34.2)
[2023-06-21 07:39] LABS: BLOOD UREA NITROGEN 39 MG/DL (9-23); CALCIUM LEVEL 10.5 MG/DL (8.3-10.6); CARBON DIOXIDE LEVEL 32 MMOL/L (20-31); CHLORIDE LEVEL 100 MMOL/L (98-107); GLOMERULAR FILTRATION RATE > 60.0 (>32); GLUCOSE, FASTING 167 MG/DL (74-106); SODIUM LEVEL 137 MMOL/L (136-145)
[2023-06-21 12:00] VITALS: O2SAT 99
[2023-06-21 12:11] VITALS: BP 140/74
== END 2023-06-21 12:26 | disposition home or self-care (01) ==
LOC: EDBD 06:28 → M ED 06:28
DX: M54.2 Cervicalgia (principal); W18.12XA Fall from or off toilet with subsequent striking against object, initial encounter; Y92.019 Unspecified place in single-family (private) house as the place of occurrence of the external cause; Y93.9 Activity, unspecified; Y99.9 Unspecified external cause status; E11.9 Type 2 diabetes mellitus without complications; I10 Essential (primary) hypertension; E78.00 Pure hypercholesterolemia, unspecified; Z91.040 Latex allergy status; Z91.048 Other nonmedicinal substance allergy status; Z88.8 Allergy status to other drugs, medicaments and biological substances; Z79.899 Other long term (current) drug therapy; Z79.1 Long term (current) use of non-steroidal anti-inflammatories (NSAID); Z79.84 Long term (current) use of oral hypoglycemic drugs

== ENCOUNTER → 2023-06-28 | Outpatient (REF) | payer MEDICARE, BC | LOC: M SFHCPLAZ 15:22 | PROVIDERS: ATTEND Student in an Organized Health Care Education/Training Program | DX: J06.9 Acute upper respiratory infection, unspecified (principal) ==

== ENCOUNTER → 2023-07-23 | Outpatient (CLI) | payer MEDICARE, BC ==
[2023-07-23 14:42] LABS: BLOOD UREA NITROGEN 27 MG/DL (9-23); CALCIUM LEVEL 11.2 MG/DL (8.3-10.6); CARBON DIOXIDE LEVEL 34 MMOL/L (20-31); CHLORIDE LEVEL 98 MMOL/L (98-107); CREATININE FOR GFR 0.85 MG/DL (0.55-1.30); GLOMERULAR FILTRATION RATE > 60.0 (>32); GLUCOSE, FASTING 156 MG/DL (74-106); MAGNESIUM LEVEL 2.3 MG/DL (1.8-2.4); POTASSIUM SERUM 4.1 MMOL/L (3.5-5.1); SODIUM LEVEL 137 MMOL/L (136-145)
== END ==
LOC: M PLALAB 11:57
PROVIDERS: ATTEND Family Medicine
DX: R25.2 Cramp and spasm (principal); M79.89 Other specified soft tissue disorders

== ENCOUNTER → 2023-09-16 | Outpatient (CLI) | payer MEDICARE, BC | LOC: M WHC 13:53 | PROVIDERS: ATTEND Internal Medicine Hematology | DX: Z12.31 Encounter for screening mammogram for malignant neoplasm of breast (principal) ==

== ENCOUNTER 2023-10-14 12:05 | Emergency (ER) | payer MEDICARE, BC ==
[~2023-10-14] VITALS: Ht 152.4 cm; Wt 61.9 kg
[2023-10-14] MEDS ORDERED: HYDR-3490 (13:27)
[2023-10-14 16:12] LABS: BASO % 0.3 % (0.0-1.0); EOS # 0.1 10^3/uL (0.0-0.5); EOS % 1.1 % (0.0-3.0); HEMATOCRIT 35.4 % (36.0-47.0); HEMOGLOBIN 11.9 g/dl (12.0-15.5); LYMPH # 2.1 10^3/uL (1.5-5.0); LYMPH % 28.4 % (24.0-44.0); MEAN CORPUSCULAR HEMOGLOBIN 31.1 pg (27.0-33.0); MEAN CORPUSCULAR HGB CONC 33.6 g/dl (32.0-36.5); MEAN CORPUSCULAR VOLUME 92.4 fl (80.0-96.0); MONO # 0.5 10^3/uL (0.0-0.8); MONO % 6.2 % (2.0-8.0); NEUTROPHILS # 4.6 10^3/uL (1.5-8.5); NEUTROPHILS % 63.6 % (36.0-66.0); PLATELET COUNT, AUTOMATED 184 10^3/uL (150-450); RED BLOOD COUNT 3.83 10^6/uL (4.00-5.40); WHITE BLOOD COUNT 7.3 10^3/uL (4.0-10.0)
[2023-10-14 16:41] LABS: BLOOD UREA NITROGEN 29 MG/DL (9-23); CALCIUM LEVEL 11.3 MG/DL (8.3-10.6); CARBON DIOXIDE LEVEL 33 MMOL/L (20-31); CHLORIDE LEVEL 100 MMOL/L (98-107); CREATININE FOR GFR 0.79 MG/DL (0.55-1.30); GLOMERULAR FILTRATION RATE > 60.0 (>32); GLUCOSE, FASTING 82 MG/DL (74-106); POTASSIUM SERUM 3.8 MMOL/L (3.5-5.1); SODIUM LEVEL 139 MMOL/L (136-145)
[2023-10-14 16:45] LABS: FREE T4 1.28 NG/DL (0.89-1.76); THYROID STIMULATING HORMONE 0.911 uIU/ML (0.55-4.78)
[2023-10-14] MEDS ORDERED: ROPI5TAB19 PO (17:10)
[2023-10-14 17:23] VITALS: BP 160/70; TEMP 98; O2SAT 97
== END 2023-10-14 17:35 | disposition home or self-care (01) ==
LOC: M ED 12:05
DX: G25.81 Restless legs syndrome (principal); M79.604 Pain in right leg; M79.605 Pain in left leg; I10 Essential (primary) hypertension; K21.9 Gastro-esophageal reflux disease without esophagitis; Z88.5 Allergy status to narcotic agent; Z88.8 Allergy status to other drugs, medicaments and biological substances; Z91.040 Latex allergy status; Z79.84 Long term (current) use of oral hypoglycemic drugs; Z79.899 Other long term (current) drug therapy

== ENCOUNTER → 2023-11-04 | Outpatient (CLI) | payer MEDICARE, BC ==
[~2023-11-04] MED LIST changes: +HYDR-3490; +ROPI5TAB19 PO
== END ==
LOC: M RAD 13:50
PROVIDERS: ATTEND Internal Medicine Hematology
DX: S32.010A Wedge compression fracture of first lumbar vertebra, initial encounter for closed fracture (principal); M54.50 Low back pain, unspecified; Y93.9 Activity, unspecified; Y92.9 Unspecified place or not applicable

== ENCOUNTER → 2023-11-18 | Outpatient (CLI) | payer MEDICARE, BC ==
[2023-11-18 11:39] LABS: HEMATOCRIT 35.9 % (36.0-47.0); HEMOGLOBIN 11.4 g/dl (12.0-15.5); MEAN CORPUSCULAR HGB CONC 31.8 g/dl (32.0-36.5); MEAN CORPUSCULAR VOLUME 94.5 fl (80.0-96.0); PLATELET COUNT, AUTOMATED 176 10^3/uL (150-450); WHITE BLOOD COUNT 6.4 10^3/uL (4.0-10.0)
[2023-11-18 12:03] LABS: MAU/CREAT RATIO 22.9 MCG/MG (0.0-30.0)
[2023-11-18 12:06] LABS: C REACTIVE PROTEIN QUANTITATIV < 0.40 MG/DL (<1.0)
[2023-11-18 12:08] LABS: ALBUMIN 3.9 G/DL (3.2-5.2); ALKALINE PHOSPHATASE 64 U/L (46-116); ALT/SGPT 30 U/L (7.0-40); AST/SGOT 15 U/L (<34); BILIRUBIN,TOTAL 0.4 MG/DL (0.3-1.2); BLOOD UREA NITROGEN 27 MG/DL (9-23); CARBON DIOXIDE LEVEL 32 MMOL/L (20-31); CHLORIDE LEVEL 104 MMOL/L (98-107); CHOLESTEROL LEVEL 173 MG/DL (<200); CHOLESTEROL RISK RATIO 4.48 (<5); CREATININE FOR GFR 0.79 MG/DL (0.55-1.30); GLOMERULAR FILTRATION RATE > 60.0 (>32); GLUCOSE, FASTING 100 MG/DL (74-106); HDL CHOLESTEROL 38.6 MG/DL (>40); NON-HDL-C 134.4 MG/DL; POTASSIUM SERUM 5.2 MMOL/L (3.5-5.1); SODIUM LEVEL 139 MMOL/L (136-145); TOTAL PROTEIN 6.6 G/DL (5.7-8.2); TRIGLYCERIDES LEVEL 157 MG/DL (<150)
[2023-11-18 12:11] LABS: FREE T4 1.17 NG/DL (0.89-1.76); TOTAL 25(OH) VITAMIN D 38.1 NG/ML (20.0-100.0)
[2023-11-18 12:12] LABS: VITAMIN B12 LEVEL 889 PG/ML (211-911)
[2023-11-18 12:18] LABS: HEMOGLOBIN A1c 6.3 % (4.0-6.0)
== END ==
LOC: M WUC 08:34
PROVIDERS: ATTEND Internal Medicine Hematology
DX: E11.9 Type 2 diabetes mellitus without complications (principal)

== ENCOUNTER → 2023-12-17 | Outpatient (CLI) | payer MEDICARE, BC | LOC: M WUC 12:28 | PROVIDERS: ATTEND Internal Medicine Hematology | DX: K59.03 Drug induced constipation (principal) ==

== ENCOUNTER 2024-01-13 14:00 | Observation (INO) | payer MEDICARE, BC ==
[~2024-01-13] VITALS: Ht 152.4 cm; Wt 65.2 kg
[2024-01-13 15:23] LABS: BASO % 0.4 % (0.0-1.0); EOS % 0.4 % (0.0-3.0); HEMATOCRIT 33.2 % (36.0-47.0); HEMOGLOBIN 11.2 g/dl (12.0-15.5); LYMPH % 12.4 % (24.0-44.0); MEAN CORPUSCULAR HEMOGLOBIN 31.4 pg (27.0-33.0); MEAN CORPUSCULAR HGB CONC 33.7 g/dl (32.0-36.5); MONO # 0.5 10^3/uL (0.0-0.8); MONO % 5.6 % (2.0-8.0); NEUTROPHILS # 6.6 10^3/uL (1.5-8.5); NEUTROPHILS % 80.5 % (36.0-66.0); PLATELET COUNT, AUTOMATED 163 10^3/uL (150-450); RED BLOOD COUNT 3.57 10^6/uL (4.00-5.40); WHITE BLOOD COUNT 8.2 10^3/uL (4.0-10.0)
[2024-01-13 15:54] LABS: BLOOD UREA NITROGEN 27 MG/DL (9-23); CALCIUM LEVEL 10.3 MG/DL (8.3-10.6); CARBON DIOXIDE LEVEL 32 MMOL/L (20-31); CHLORIDE LEVEL 103 MMOL/L (98-107); CREATININE FOR GFR 0.88 MG/DL (0.55-1.30); GLOMERULAR FILTRATION RATE > 60.0 (>32); GLUCOSE, FASTING 155 MG/DL (74-106); POTASSIUM SERUM 3.2 MMOL/L (3.5-5.1); SODIUM LEVEL 139 MMOL/L (136-145)
[2024-01-13] MEDS: fentaNYL 100 MCG/2 ML INJECTION IV ONE (20:42)
[2024-01-13] MEDS ORDERED: GLIM2TAB4 PO (22:51)
[2024-01-13] MEDS ORDERED: HYDR-3490 PO (22:51)
[2024-01-13] MEDS ORDERED: SENN1TAB96 PO (22:51)
[2024-01-13] MEDS ORDERED: PREG50CA3 PO (22:51)
[2024-01-13] MEDS ORDERED: D3 S20002 PO (22:51)
[2024-01-13] MEDS ORDERED: FURO20TA2 PO (22:51)
[2024-01-13] MEDS ORDERED: CYAN-1 PO (22:51)
[2024-01-13] MEDS ORDERED: OXYB10TA23 PO (22:51)
[2024-01-13] MEDS ORDERED: MAGN400T2 PO (22:51)
[2024-01-13] MEDS ORDERED: AMOX500C PO (22:52)
[2024-01-13] MEDS ORDERED: HOME MED LIST COMPLETE! XX SCH (22:55)
[2024-01-14] MEDS: PERCOCET 5MG/325MG TAB PO ONE (00:15)
[2024-01-14] MEDS ORDERED: MOM 30ML SUSPENSION UDC PO PRN (01:20)
[2024-01-14] MEDS ORDERED: ACETAMINOPHEN TAB 650MG DOSE (2X325MG) PO PRN ×2 (01:20→08:05)
[2024-01-14] MEDS ORDERED: KETOROLAC 30 MG/ML 1ML VIAL IV PRN ×2 (01:25)
[2024-01-14] MEDS ORDERED: oxyCODONE 5MG TAB PO PRN (01:25)
[2024-01-14] MEDS ORDERED: DEXTROSE 50% 50ML SYRINGE IV PRN (01:45)
[2024-01-14] MEDS ORDERED: GLUCAGON INJ 1MG VIAL SC PRN (01:45)
[2024-01-14] MEDS ORDERED: GLUCOSE 4 GM CHEW PO PRN (01:45)
[2024-01-14] MEDS: POTASSIUM CHLORIDE 10MEQ SR TABLET PO ONE (05:49)
[2024-01-14 07:50] VITALS: BP 132/61; O2SAT 99
[2024-01-14] MEDS ORDERED: PILL CUTTER 1 EACH XX PRN (08:15)
[2024-01-14] MEDS: VITAMIN D 1,000 INTERNATIONAL UNITS TABLET PO SCH (08:16)
[2024-01-14] MEDS: CYANOCOBALAMIN 500 MCG TAB PO SCH (08:16)
[2024-01-14] MEDS: FUROSEMIDE 20 MG TAB PO SCH (08:21)
[2024-01-14] MEDS: oxyBUTYnin *DITROPAN XL* 5 MG TABCR PO SCH (08:21)
[2024-01-14] MEDS: DOCUSATE SODIUM 100MG CAPSULE PO SCH (08:21)
[2024-01-14] MEDS: MAGNESIUM OXIDE 400MG TAB (MAG-OX) PO SCH (08:22)
[2024-01-14] MEDS: LIDOCAINE 5% (LIDODERM) PATCH TD SCH (08:23)
[2024-01-14] MEDS: ENOXAPARIN 40MG/0.4ML SYRINGE (J1650 PER 10MG) SC SCH (08:23)
[2024-01-14] MEDS: INSULIN LISPRO (NovoLOG) PER UNIT SC SCH ×2 (08:23→20:16)
[2024-01-14] MEDS: ACETAMINOPHEN 500 MG TAB PO SCH (09:25)
[2024-01-14] MEDS: KETOROLAC 30 MG/ML 1ML VIAL IV SCH (09:25)
[2024-01-14 12:29] VITALS: BP 128/59; TEMP 97.7; O2SAT 97
[2024-01-14 14:02] VITALS: BP 130/70; TEMP 98.1; O2SAT 99
[2024-01-14] MEDS: oxyCODONE 5MG TAB PO PRN (17:15)
[2024-01-14 20:03] VITALS: BP 136/61; TEMP 98.8; O2SAT 96
[2024-01-14] MEDS: PREGABALIN 50 MG CAP (LYRICA) PO SCH (21:04)
[2024-01-15 03:27] VITALS: BP 150/66; TEMP 97.5; O2SAT 98
[2024-01-15 05:31] LABS: BASO % 0.6 % (0.0-1.0); EOS # 0.1 10^3/uL (0.0-0.5); EOS % 1.7 % (0.0-3.0); HEMATOCRIT 32.9 % (36.0-47.0); HEMOGLOBIN 10.9 g/dl (12.0-15.5); LYMPH # 1.6 10^3/uL (1.5-5.0); LYMPH % 25.4 % (24.0-44.0); MEAN CORPUSCULAR HEMOGLOBIN 30.6 pg (27.0-33.0); MEAN CORPUSCULAR HGB CONC 33.1 g/dl (32.0-36.5); MEAN CORPUSCULAR VOLUME 92.4 fl (80.0-96.0); MONO # 0.5 10^3/uL (0.0-0.8); MONO % 7.8 % (2.0-8.0); NEUTROPHILS # 4.1 10^3/uL (1.5-8.5); PLATELET COUNT, AUTOMATED 137 10^3/uL (150-450); RED BLOOD COUNT 3.56 10^6/uL (4.00-5.40); WHITE BLOOD COUNT 6.5 10^3/uL (4.0-10.0)
[2024-01-15 06:02] LABS: CALCIUM LEVEL 10.6 MG/DL (8.3-10.6); CREATININE FOR GFR 1.12 MG/DL (0.55-1.30); GLOMERULAR FILTRATION RATE 49.2 (>32)
[2024-01-15 08:00] VITALS: BP 114/64; TEMP 97.5; O2SAT 97
[2024-01-15 14:00] VITALS: BP 142/74; TEMP 97.9; O2SAT 98
[2024-01-15 20:00] VITALS: BP 137/75; TEMP 98.1; O2SAT 94
[2024-01-16 04:00] VITALS: BP 149/64; TEMP 97.3; O2SAT 98
[2024-01-16 06:38] LABS: BASO % 0.5 % (0.0-1.0); EOS # 0.2 10^3/uL (0.0-0.5); EOS % 2.6 % (0.0-3.0); HEMATOCRIT 31.9 % (36.0-47.0); HEMOGLOBIN 10.6 g/dl (12.0-15.5); LYMPH # 1.7 10^3/uL (1.5-5.0); LYMPH % 25.3 % (24.0-44.0); MEAN CORPUSCULAR HEMOGLOBIN 30.4 pg (27.0-33.0); MEAN CORPUSCULAR HGB CONC 33.2 g/dl (32.0-36.5); MEAN CORPUSCULAR VOLUME 91.4 fl (80.0-96.0); MONO # 0.5 10^3/uL (0.0-0.8); MONO % 7.1 % (2.0-8.0); NEUTROPHILS # 4.2 10^3/uL (1.5-8.5); PLATELET COUNT, AUTOMATED 154 10^3/uL (150-450); RED BLOOD COUNT 3.49 10^6/uL (4.00-5.40); WHITE BLOOD COUNT 6.6 10^3/uL (4.0-10.0)
[2024-01-16 06:56] LABS: CALCIUM LEVEL 10.7 MG/DL (8.3-10.6); CREATININE FOR GFR 1.04 MG/DL (0.55-1.30); GLOMERULAR FILTRATION RATE 53.6 (>32); POTASSIUM SERUM 4.1 MMOL/L (3.5-5.1)
[2024-01-16 12:00] VITALS: BP 124/56; TEMP 97.3; O2SAT 94
[2024-01-16 20:00] VITALS: BP 127/60; TEMP 97.9; O2SAT 94
[2024-01-16] MEDS: SENOKOT S TAB PO SCH (20:37)
[2024-01-17 04:00] VITALS: BP 126/63; TEMP 97.9; O2SAT 97
[2024-01-17 05:49] LABS: BASO % 0.2 % (0.0-1.0); EOS # 0.1 10^3/uL (0.0-0.5); EOS % 1.2 % (0.0-3.0); HEMATOCRIT 30.4 % (36.0-47.0); HEMOGLOBIN 10.2 g/dl (12.0-15.5); LYMPH # 0.9 10^3/uL (1.5-5.0); LYMPH % 10.5 % (24.0-44.0); MEAN CORPUSCULAR HEMOGLOBIN 31.1 pg (27.0-33.0); MEAN CORPUSCULAR HGB CONC 33.6 g/dl (32.0-36.5); MEAN CORPUSCULAR VOLUME 92.7 fl (80.0-96.0); MONO # 0.5 10^3/uL (0.0-0.8); MONO % 6.4 % (2.0-8.0); NEUTROPHILS # 6.6 10^3/uL (1.5-8.5); NEUTROPHILS % 81.1 % (36.0-66.0); PLATELET COUNT, AUTOMATED 119 10^3/uL (150-450); RED BLOOD COUNT 3.28 10^6/uL (4.00-5.40); WHITE BLOOD COUNT 8.2 10^3/uL (4.0-10.0)
[2024-01-17 06:15] LABS: CREATININE FOR GFR 1.08 MG/DL (0.55-1.30); GLOMERULAR FILTRATION RATE 51.3 (>32); POTASSIUM SERUM 4.2 MMOL/L (3.5-5.1)
[2024-01-17] MEDS: NAPROXEN 250 MG TAB PO SCH (08:57)
[2024-01-17 12:00] VITALS: BP 126/62; TEMP 97.9; O2SAT 94
[2024-01-17 19:55] VITALS: BP 123/65; TEMP 98.2; O2SAT 97
[2024-01-18 04:40] VITALS: BP 124/62; TEMP 97.9; O2SAT 98
[2024-01-18 05:46] LABS: BASO % 0.3 % (0.0-1.0); EOS # 0.1 10^3/uL (0.0-0.5); EOS % 1.4 % (0.0-3.0); HEMATOCRIT 28.7 % (36.0-47.0); HEMOGLOBIN 9.4 g/dl (12.0-15.5); LYMPH # 1.5 10^3/uL (1.5-5.0); LYMPH % 23.3 % (24.0-44.0); MEAN CORPUSCULAR HEMOGLOBIN 30.4 pg (27.0-33.0); MEAN CORPUSCULAR HGB CONC 32.8 g/dl (32.0-36.5); MEAN CORPUSCULAR VOLUME 92.9 fl (80.0-96.0); MONO # 0.5 10^3/uL (0.0-0.8); MONO % 7.9 % (2.0-8.0); NEUTROPHILS # 4.4 10^3/uL (1.5-8.5); NEUTROPHILS % 66.5 % (36.0-66.0); PLATELET COUNT, AUTOMATED 131 10^3/uL (150-450); RED BLOOD COUNT 3.09 10^6/uL (4.00-5.40); WHITE BLOOD COUNT 6.6 10^3/uL (4.0-10.0)
[2024-01-18 06:00] LABS: BLOOD UREA NITROGEN 46 MG/DL (9-23); CALCIUM LEVEL 9.9 MG/DL (8.3-10.6); CARBON DIOXIDE LEVEL 27 MMOL/L (20-31); CHLORIDE LEVEL 102 MMOL/L (98-107); CREATININE FOR GFR 0.93 MG/DL (0.55-1.30); GLOMERULAR FILTRATION RATE > 60.0 (>32); GLUCOSE, FASTING 150 MG/DL (74-106); POTASSIUM SERUM 3.9 MMOL/L (3.5-5.1); SODIUM LEVEL 133 MMOL/L (136-145)
[2024-01-18 12:00] VITALS: BP 116/68; TEMP 97.9; O2SAT 97
[2024-01-18 19:54] VITALS: BP 128/87; TEMP 98.1; O2SAT 98
[2024-01-19 06:03] LABS: BASO % 0.4 % (0.0-1.0); EOS # 0.2 10^3/uL (0.0-0.5); EOS % 3.1 % (0.0-3.0); HEMATOCRIT 30.9 % (36.0-47.0); HEMOGLOBIN 9.9 g/dl (12.0-15.5); LYMPH # 1.4 10^3/uL (1.5-5.0); LYMPH % 29.5 % (24.0-44.0); MEAN CORPUSCULAR HEMOGLOBIN 29.8 pg (27.0-33.0); MEAN CORPUSCULAR VOLUME 93.1 fl (80.0-96.0); MONO # 0.5 10^3/uL (0.0-0.8); MONO % 10.2 % (2.0-8.0); NEUTROPHILS # 2.7 10^3/uL (1.5-8.5); PLATELET COUNT, AUTOMATED 146 10^3/uL (150-450); RED BLOOD COUNT 3.32 10^6/uL (4.00-5.40); WHITE BLOOD COUNT 4.8 10^3/uL (4.0-10.0)
[2024-01-19 06:23] LABS: CREATININE FOR GFR 0.97 MG/DL (0.55-1.30); GLOMERULAR FILTRATION RATE 58.1 (>32); POTASSIUM SERUM 4.3 MMOL/L (3.5-5.1)
[2024-01-19 12:00] VITALS: BP 145/75; TEMP 98.2; O2SAT 97
[2024-01-19 20:00] VITALS: BP 136/60; TEMP 97.3; O2SAT 95
[2024-01-19 21:00] VITALS: BP 130/71; TEMP 97.9; O2SAT 97
[2024-01-20 04:00] VITALS: BP 140/60; TEMP 97.7; O2SAT 97
[2024-01-20 04:57] VITALS: BP 141/61; TEMP 98.2; O2SAT 96
[2024-01-20 09:30] VITALS: BP 155/119
[2024-01-20 10:30] VITALS: BP 140/68
[2024-01-20 12:00] VITALS: BP 143/63; TEMP 98.1; O2SAT 97
[2024-01-20 21:28] VITALS: BP 143/64; TEMP 97.9; O2SAT 97
[2024-01-21 04:00] VITALS: BP 136/65; TEMP 97.7; O2SAT 98
[2024-01-21 12:00] VITALS: BP 130/70; TEMP 97.7; O2SAT 95
[2024-01-21 20:45] VITALS: BP 143/76; TEMP 97.9; O2SAT 96
[2024-01-22 04:00] VITALS: BP 139/53; TEMP 97.7; O2SAT 96
[2024-01-22 08:11] LABS: HEMATOCRIT 32.4 % (36.0-47.0); HEMOGLOBIN 10.5 g/dl (12.0-15.5); MEAN CORPUSCULAR HEMOGLOBIN 30.7 pg (27.0-33.0); MEAN CORPUSCULAR HGB CONC 32.4 g/dl (32.0-36.5); MEAN CORPUSCULAR VOLUME 94.7 fl (80.0-96.0); PLATELET COUNT, AUTOMATED 174 10^3/uL (150-450); RED BLOOD COUNT 3.42 10^6/uL (4.00-5.40); WHITE BLOOD COUNT 5.8 10^3/uL (4.0-10.0)
[2024-01-22 08:41] LABS: BLOOD UREA NITROGEN 32 MG/DL (9-23); CALCIUM LEVEL 10.7 MG/DL (8.3-10.6); CARBON DIOXIDE LEVEL 28 MMOL/L (20-31); CHLORIDE LEVEL 105 MMOL/L (98-107); CREATININE FOR GFR 0.84 MG/DL (0.55-1.30); GLOMERULAR FILTRATION RATE > 60.0 (>32); GLUCOSE, FASTING 157 MG/DL (74-106); POTASSIUM SERUM 4.5 MMOL/L (3.5-5.1); SODIUM LEVEL 138 MMOL/L (136-145)
[2024-01-22 12:00] VITALS: BP 141/82; TEMP 98.4; O2SAT 93
[2024-01-22] MEDS ORDERED: LIDO5TD TD (13:56)
[2024-01-22] MEDS ORDERED: ACET-683 PO (13:56)
== END 2024-01-22 16:14 | disposition home health service (06) ==
LOC: M ED 14:00 → M ED INP 14:01 → UNDOADMOB 01-14 01:18 → M ED INP 01-14 01:18 → M MSPAV 01-14 14:05 → M ED INP 01-14 14:05 → UNDODISOB 01-22 16:14
PROVIDERS: ADMIT Student in an Organized Health Care Education/Training Program; ATTEND Student in an Organized Health Care Education/Training Program
DX: S42.255A Nondisplaced fracture of greater tuberosity of left humerus, initial encounter for closed fracture (principal); W18.00XA Striking against unspecified object with subsequent fall, initial encounter; Y92.010 Kitchen of single-family (private) house as the place of occurrence of the external cause; Y93.G1 Activity, food preparation and clean up; Y99.8 Other external cause status; R26.2 Difficulty in walking, not elsewhere classified; M79.622 Pain in left upper arm; M79.605 Pain in left leg; Z99.89 Dependence on other enabling machines and devices; E11.42 Type 2 diabetes mellitus with diabetic polyneuropathy; I10 Essential (primary) hypertension; N32.81 Overactive bladder; E56.9 Vitamin deficiency, unspecified; Z90.710 Acquired absence of both cervix and uterus; Z90.49 Acquired absence of other specified parts of digestive tract; Z96.651 Presence of right artificial knee joint; Z98.41 Cataract extraction status, right eye; Z98.42 Cataract extraction status, left eye; Z98.890 Other specified postprocedural states; Z88.5 Allergy status to narcotic agent; Z88.8 Allergy status to other drugs, medicaments and biological substances; Z91.040 Latex allergy status; Z91.048 Other nonmedicinal substance allergy status; Z79.899 Other long term (current) drug therapy
CPT/HCPCS: 36415; 70450; 71101; 71250; 72125; 73030; 73080; 73502; 73590; 73610; 80048; 85025; 85027; 96372; 96374; 96375; 96376; 97110; 97116; 97161; 97165; 97530; 97535; 99285; G0378; J1650; J1815; J1885; J3010

== ENCOUNTER → 2024-02-10 | Outpatient (CLI) | payer MEDICARE, BC ==
[~2024-02-10] MED LIST changes: +ACET-683 PO; +CYAN-1 PO; +D3 S20002 PO; +FURO20TA2 PO; +GLIM2TAB4 PO; +HYDR-3490 PO; +LIDO5TD TD; +MAGN400T2 PO; +OXYB10TA23 PO; +PREG50CA3 PO; +SENN1TAB96 PO
== END ==
LOC: M SOG 07:25
PROVIDERS: ATTEND Physician Assistant
DX: M25.512 Pain in left shoulder (principal)

== ENCOUNTER → 2024-03-10 | Outpatient (CLI) | payer MEDICARE, BC | LOC: M SOG 07:52 | PROVIDERS: ATTEND Physician Assistant | DX: S42.252D Displaced fracture of greater tuberosity of left humerus, subsequent encounter for fracture with routine healing (principal) ==

== ENCOUNTER → 2024-07-17 | Outpatient (REF) | payer MEDICARE, BC ==
[~2024-07-17] MED LIST changes: +GLIP-320; -GLIP10TA18
[2024-07-17 19:07] LABS: HEMATOCRIT 39.4 % (36.0-47.0); HEMOGLOBIN 13.2 g/dl (12.0-15.5); MEAN CORPUSCULAR HEMOGLOBIN 30.3 pg (27.0-33.0); MEAN CORPUSCULAR HGB CONC 33.5 g/dl (32.0-36.5); MEAN CORPUSCULAR VOLUME 90.6 fl (80.0-96.0); PLATELET COUNT, AUTOMATED 188 10^3/uL (150-450); RED BLOOD COUNT 4.35 10^6/uL (4.00-5.40); WHITE BLOOD COUNT 7.8 10^3/uL (4.0-10.0)
[2024-07-17 19:15] LABS: HEMOGLOBIN A1c 8.1 % (4.0-6.0)
[2024-07-17 19:36] LABS: ALBUMIN 4.5 G/DL (3.2-5.2); ALKALINE PHOSPHATASE 104 U/L (35-104); ALT/SGPT 35 U/L (7.0-40); AST/SGOT 17 U/L (<34); BILIRUBIN,TOTAL 0.4 MG/DL (0.3-1.2); BLOOD UREA NITROGEN 31 MG/DL (9-23); CALCIUM LEVEL 11.3 MG/DL (8.3-10.6); CARBON DIOXIDE LEVEL 32 MMOL/L (20-31); CHLORIDE LEVEL 98 MMOL/L (98-107); CREATININE FOR GFR 0.88 MG/DL (0.55-1.30); GLOMERULAR FILTRATION RATE > 60.0 (>32); GLUCOSE, FASTING 133 MG/DL (74-106); POTASSIUM SERUM 4.3 MMOL/L (3.5-5.1); SODIUM LEVEL 141 MMOL/L (136-145)
== END ==
LOC: M PLALAB 17:03
PROVIDERS: ATTEND Family Medicine
DX: E11.42 Type 2 diabetes mellitus with diabetic polyneuropathy (principal); D64.9 Anemia, unspecified

== ENCOUNTER → 2025-01-29 | Outpatient (CLI) | payer MEDICARE ==
[2025-01-29 19:09] LABS: ALT/SGPT 28.0 U/L (7.0-40); AST/SGOT 19.0 U/L (<34); CALCIUM LEVEL 10.6 MG/DL (8.3-10.6); CARBON DIOXIDE LEVEL 33.0 MMOL/L (20-31); CHLORIDE LEVEL 98.0 MMOL/L (98-107); CREATININE FOR GFR 0.85 MG/DL (0.55-1.30); GLOMERULAR FILTRATION RATE 66.7 (>32); POTASSIUM SERUM 3.6 MMOL/L (3.5-5.1); SODIUM LEVEL 139.0 MMOL/L (136-145)
[2025-01-29 19:12] LABS: FREE T4 1.39 NG/DL (0.89-1.76)
[2025-01-29 19:13] LABS: TOTAL 25(OH) VITAMIN D 35.2 NG/ML (20.0-100.0)
[2025-01-29 19:23] LABS: ESTIMATED AVERAGE GLUCOSE 214.0 MG/DL (60-110)
== END ==
LOC: M PLALAB 16:52
PROVIDERS: ATTEND Family Medicine
DX: E05.90 Thyrotoxicosis, unspecified without thyrotoxic crisis or storm (principal); E11.42 Type 2 diabetes mellitus with diabetic polyneuropathy; E55.9 Vitamin D deficiency, unspecified